=== PATIENT | male | born 1960 | race Caucasian/White ===

== ENCOUNTER → 2017-07-28 05:54 | Outpatient (CLI) | payer OTHER, SELFPAY ==
[2017-07-28 07:29] LABS: ALB/GLOB Ratio 1.1 RATIO (0.9-2.4); AST(SGOT) 20 U/L (15-37); Alanine Aminotransfer ALT/SGPT 39 U/L (16-61); Albumin, Serum 3.7 g/dL (3.2-5.0); Alkaline Phosphatase 73 U/L (45-117); Anion Gap 6 (5-15); BUN 18 mg/dL (7-18); BUN/Creat Ratio 16.1 RATIO (10-20); Calcium,Total 8.9 mg/dL (8.5-10.1); Chloride 104 mmol/L (98-107); Cholesterol 218 mg/dL (200); Creatinine, Serum 1.12 mg/dL (0.70-1.30); EST Glomerular Filtration Rate 71 mL/min (>60); Est Glom Filt Rate - Afr Amer 86 mL/min (>60); Globulin 3.5 g/dL (2.2-4.2); Glucose 145 mg/dL (74-106); High Density Lipoprotein 38 mg/dL; PSA,Total - Annual Screen 0.54 ng/mL (0.00-4.00); Potassium 3.8 mmol/L (3.5-5.1); Protein, Total 7.2 g/dL (6.4-8.2); Sodium Level 140 mmol/L (136-145); T4 Free Direct 0.83 ng/dL (0.76-1.46); Thyroid Stim Hormone (TSH) 8.53 uIU/mL (0.358-3.74); Triglycerides 183 mg/dL; Uric Acid 5.4 mg/dL (3.5-7.2); Very Low Density Lipoprotein 37 mg/dL (5-40)
== END ==
PROVIDERS: Family Provider Family Medicine; PCP Family Medicine; Visit Provider Family Medicine
DX: I10 Essential (primary) hypertension (principal); N40.0 Benign prostatic hyperplasia without lower urinary tract symptoms; E03.9 Hypothyroidism, unspecified; M10.9 Gout, unspecified
CPT/HCPCS: 36415; 80053; 80061; 84153; 84439; 84443; 84550; G0103

== ENCOUNTER 2017-12-23 19:53 | Emergency (ER) | payer OTHER, SELFPAY ==
[2017-12-23 19:54] VITALS: BP 153/100; PULSE 75; RESP 16; TEMP 37.4; O2SAT 95; BMI 34.2
--- NOTE | 2017-12-23 20:18 | ED.DCSUM_ITS ---
- ER Visit Summary Date of Service: 12/23/17 Chief Complaint: Right upper dental pain History of Present Illness: The patient is a 57 M history of a bad tooth for a long period of time. He states the last several days the tooth has been increasing more painful. Denies any fever. No facial swelling. Physical Examination: Vital signs are stable afebrile. He does not look septic or toxic. H EENT exam no facial swelling. No trismus. Right upper molar is severely decayed. Tender to palpation. With mild gingival swelling. There is no trismus. He has other areas of dentition and have cavities. There is no obvious abscess. Neck nontender no lymphadenopathy. Lungs clear to auscultation bilaterally. Heart regular rate and rhythm no murmur. Otherwise exam unremarkable. Test Results: None Emergency Department Course and Treatment: [place] home pack. Treatment Plan: Penicillin. Motrin and Tylenol for pain. Follow-up with a dentist as soon as possible. Disposition: Discharge Impression: Acute dental pain secondary to dental cavities and decay This note was generated with [employer] dictation software. It may contain incorrect words, spelling, and punctuation that were not noted in review of the chart prior to signing ED Disposition - Plan for ED Patient: Chief Complaint: Dental Referrals: Navjot Mason MD [Primary Care Provider] -
--- NOTE | 2017-12-23 20:18 | ED.DEP ---
ED Disposition - Plan for ED Patient: Disposition: Home or Assisted Living Chief Complaint: Dental Instructions: ED Cavity Dental, ED Abscess Dental Prescriptions: Hydrocodone/Acetaminophen [[place] 10-325 Tablet] 1 ea PO Q4H PRN PRN #10 tab PRN Reason: Pain Penicillin Vk [Pen-Vee K , V-Cillin K] 500 mg PO 4X/DAY #40 tab Referrals: Mich Vo DDS [STAFF PHYSICIAN] - As soon as possible Additional Instructions: Motrin and Tylenol for pain. [place] home pack use sparingly. Call follow-up with a dentist of your choice. The Dr. Vo who is a very good oral surgeon here in [place].
--- NOTE | 2017-12-23 20:38 | ED.RN ---
Asked Dr. Pearce to change order from home pack to written rx for [facility] as [facility] is still open. Pt given rx for [place] and Penicillin and instructed to go there immediately for medications.
== END 2017-12-23 20:40 | disposition home or self-care (01) ==
LOC: ED 20:22
PROVIDERS: Emergency Provider Emergency Medicine; Family Provider Family Medicine; PCP Family Medicine
DX: K08.89 Other specified disorders of teeth and supporting structures (principal); K02.9 Dental caries, unspecified; K05.10 Chronic gingivitis, plaque induced; I10 Essential (primary) hypertension; Z79.899 Other long term (current) drug therapy
CPT/HCPCS: 99282

== ENCOUNTER 2018-08-01 16:55 | Emergency (ER) | payer OTHER, SELFPAY ==
[2018-08-01 16:57] VITALS: BP 147/106; PULSE 69; RESP 16; TEMP 36.6; O2SAT 97; BMI 34.8
--- NOTE | 2018-08-01 17:27 | CT_ITS ---
STUDY: CT BRAIN WITHOUT CONTRAST REASON FOR EXAM: Male, 57 years old. Syncopal episode today. History of diabetes and hypertension. RADIATION DOSAGE (If Supplied By Facility): CTDIvol = ( 44.99 ) mGy, DLP = ( 829.85 ) mGycm TECHNIQUE: Transaxial CT imaging of the brain was performed without administration of intravenous contrast material. Individualized dose optimization techniques were used for this CT. COMPARISON: None. FINDINGS: Normal soft tissue structures. Normal calvarium. Normal size ventricles and extra-axial spaces for the patient's age. Normal white matter tracts of the cerebral hemispheres. Normal basal ganglia and thalami. Normal brainstem. Normal cerebellum. There is no intracranial hemorrhage. There are no findings of an acute ischemic infarction. Normal visualized paranasal sinuses. CT/Brain/Head without Contrast IMPRESSION: Normal unenhanced CT scan of the brain. Electronically Signed: Devin Chambers MD at 17:56 EST , Service support ,
--- NOTE | 2018-08-01 17:27 | EKG12_ITS ---
Test Reason : SYNCOPE Blood Pressure : / mmHG Vent. Rate : 074 BPM Atrial Rate : 074 BPM P-R Int : 138 ms QRS Dur : 084 ms QT Int : 392 ms P-R-T Axes : 034 047 055 degrees QTc Int : 435 ms Normal sinus rhythm Normal ECG Confirmed by FRAN JUAREZ MD ([id number]), editor in chief newspaper VIRGIE MAYES ([id number]) on 08/06/2018 5:06:58 PM Referred By: Confirmed By:FRAN JUAREZ MD
[2018-08-01 17:42] LABS: Absolute Lymphocyte Count 2.65 X10^3/ul (0.83-4.51); Absolute Neutrophil Count 5.6 X10^3/uL (2.0-7.7); Basophil# 0.02 X10^3/uL; Basophil% 0.2 % (0-1); Eosinophil# 0.16 X10^3/uL; Eosinophils% 1.7 % (0-5); Hematocrit 44.6 % (40-54); Hemoglobin 14.5 g/dl (13.0-16.5); Lymphocyte # 2.65 X10^3/ul (4.0); Lymphocyte % 28.2 % (19-41); Mean Corp Hgb Conc 32.5 g/gl (32-36); Mean Corpuscular Hgb 27.7 pg (27.0-32.0); Mean Corpuscular Volume 85.3 fL (80-94); Mean Platelet Vol. 10.4 fl (6.2-12.0); Monocyte# 0.93 X10^3/uL; Monocyte% 9.9 % (0-10); Neutrophil # 5.59 X10^3/uL (2.7-7.7); Neutrophil % 59.5 % (47-70); Platelet Count 237 K/mm3 (150-450); RBC Distribution Width CV 14.3 % (11.6-14.6); RBC Distribution Width SD 44.2 fl (35.1-43.9); Red Blood Count 5.23 M/mm3 (4.6-6.2); White Blood Count 9.4 K/mm3 (4.4-11.0)
[2018-08-01 17:48] LABS: POSITIVE COUNT NO; POSITIVE DIFFERENTIAL NO; POSITIVE MORPHOLOGY NO
[2018-08-01 17:49] VITALS: BP 146/89; BP 149/93; BP 156/97; PULSE 72; PULSE 74; PULSE 80
[2018-08-01 18:02] LABS: Anion Gap 9 (5-15); BUN 14 mg/dL (7-18); BUN/Creat Ratio 11.7 RATIO (10-20); Calcium,Total 9.1 mg/dL (8.5-10.1); Chloride 103 mmol/L (98-107); EST Glomerular Filtration Rate 66 mL/min (>60); Est Glom Filt Rate - Afr Amer 80 mL/min (>60); Estimated Creatinine Clearance 70.59 ml/min; Glucose 103 mg/dL (74-106); Potassium 3.9 mmol/L (3.5-5.1); Sodium Level 140 mmol/L (136-145)
--- NOTE | 2018-08-01 19:39 | ED.VISSUMM ---
- ER Visit Summary Date of Service: 08/01/18 Chief Complaint: Syncope History of Present Illness: The patient is a 57 M who presents with a syncopal episode that occurred today. Patient states he got up after going to the bathroom and was walking in his kitchen when he passed out. Patient states he stood up for a while after going to the bathroom without any dizziness. Patient denies any chest pain or palpitations. Patient denies any nausea or vomiting. Patient denies any shortness of breath. Patient states he did feel somewhat lightheaded prior to passing out. Patient tried to sit down before he passed out. Physical Examination: Vital signs are stable. Patient is afebrile. Patient is in no acute distress. Oral mucosa is pink and moist. Neck is supple. Trachea is midline. There is no JVD noted. Heart was regular rate and rhythm. Lungs are clear and equal bilateral. Abdomen is soft. Bowel sounds are normal. There is no tenderness. There is no guarding noted. Skin is warm dry. Cranial nerves II through XII are intact. There are no focal motor or sensory deficits noted. The remaining physical exam is within normal limits. Test Results: EKG showed normal sinus rhythm with a rate of 74. There are no acute ST or T wave changes. CT scan of the brain was obtained and was normal. CBC, basic metabolic profile, troponin were obtained and were normal. Orthostatic vital signs were negative. Emergency Department Course and Treatment: Patient felt better on reevaluation. Patient was instructed to get plenty of rest. Patient was instructed to follow-up with his primary care physician in 7-10 days. Patient understood and was agreeable with the plan. All questions were answered. Disposition: Discharge home Impression: Syncope This note was generated with [employer] dictation software. It may contain incorrect words, spelling, and punctuation that were not noted in review of the chart prior to signing ED Disposition - Plan for ED Patient: Disposition: Home or Assisted Living Diagnosis: Syncope and collapse Instructions: ED Fainting Unkn Cause Referrals: Navjot Mason MD [Primary Care Provider] -
--- NOTE | 2018-08-01 19:43 | ED.DCSUM_ITS ---
- ER Visit Summary Date of Service: 08/01/18 Chief Complaint: Syncope History of Present Illness: The patient is a 57 M who presents with a syncopal episode that occurred today. Patient states he got up after going to the bathroom and was walking in his kitchen when he passed out. Patient states he stood up for a while after going to the bathroom without any dizziness. Patient denies any chest pain or palpitations. Patient denies any nausea or vomiting. Patient denies any shortness of breath. Patient states he did feel somewhat lightheaded prior to passing out. Patient tried to sit down before he passed out. Physical Examination: Vital signs are stable. Patient is afebrile. Patient is in no acute distress. Oral mucosa is pink and moist. Neck is supple. Trachea is midline. There is no JVD noted. Heart was regular rate and rhythm. Lungs are clear and equal bilateral. Abdomen is soft. Bowel sounds are normal. There is no tenderness. There is no guarding noted. Skin is warm dry. Cranial nerves II through XII are intact. There are no focal motor or sensory deficits noted. The remaining physical exam is within normal limits. Test Results: EKG showed normal sinus rhythm with a rate of 74. There are no acute ST or T wave changes. CT scan of the brain was obtained and was normal. CBC, basic metabolic profile, troponin were obtained and were normal. Orthostatic vital signs were negative. Emergency Department Course and Treatment: Patient felt better on reevaluation. Patient was instructed to get plenty of rest. Patient was instructed to follow- up with his primary care physician in 7-10 days. Patient understood and was agreeable with the plan. All questions were answered. Disposition: Discharge home Impression: Syncope This note was generated with [employer] dictation software. It may contain incorrect words, spelling, and punctuation that were not noted in review of the chart prior to signing ED Disposition - Plan for ED Patient: Disposition: Home or Assisted Living Diagnosis: Syncope and collapse Instructions: ED Fainting Unkn Cause Referrals: Navjot Mason MD [Primary Care Provider] -
[2018-08-01 19:54] VITALS: BP 137/95; PULSE 72; RESP 16; O2SAT 96
== END 2018-08-01 19:54 | disposition home or self-care (01) ==
PROVIDERS: Emergency Provider Emergency Medicine; Family Provider Family Medicine; PCP Family Medicine
DX: R55 Syncope and collapse (principal); E11.9 Type 2 diabetes mellitus without complications; I10 Essential (primary) hypertension; E78.00 Pure hypercholesterolemia, unspecified; E03.9 Hypothyroidism, unspecified; Z79.84 Long term (current) use of oral hypoglycemic drugs; Z79.899 Other long term (current) drug therapy
CPT/HCPCS: 70450; 80048; 84484; 85025; 93005; 99285; A4216

== ENCOUNTER → 2019-03-05 08:17 | Outpatient (CLI) | payer OTHER, SELFPAY ==
[2019-03-05 10:33] LABS: ALB/GLOB Ratio 1.1 RATIO (0.9-2.4); AST(SGOT) 19 U/L (15-37); Alanine Aminotransfer ALT/SGPT 40 U/L (16-61); Albumin, Serum 3.7 g/dL (3.2-5.0); Alkaline Phosphatase 78 U/L (45-117); Anion Gap 8 (5-15); BUN 23 mg/dL (7-18); BUN/Creat Ratio 18.9 RATIO (10-20); Calcium,Total 9.1 mg/dL (8.5-10.1); Chloride 106 mmol/L (98-107); Cholesterol 274 mg/dL (200); Creatinine, Serum 1.22 mg/dL (0.70-1.30); EST Glomerular Filtration Rate 64 mL/min (>60); Est Glom Filt Rate - Afr Amer 78 mL/min (>60); Free T3 2.4 pg/mL (2.18-3.98); Globulin 3.5 g/dL (2.2-4.2); Glucose 250 mg/dL (74-106); High Density Lipoprotein 33 mg/dL; Potassium 4.4 mmol/L (3.5-5.1); Protein, Total 7.2 g/dL (6.4-8.2); Sodium Level 142 mmol/L (136-145); Thyroid Stim Hormone (TSH) 2.22 uIU/mL (0.358-3.74); Triglycerides 248 mg/dL; Very Low Density Lipoprotein 50 mg/dL (5-40)
== END ==
PROVIDERS: Family Provider Family Medicine; PCP Family Medicine; Referring Provider Family Medicine; Visit Provider Family Medicine
DX: E11.9 Type 2 diabetes mellitus without complications (principal); E03.9 Hypothyroidism, unspecified; N40.0 Benign prostatic hyperplasia without lower urinary tract symptoms
CPT/HCPCS: 36415; 80053; 80061; 84153; 84439; 84443; 84481

== ENCOUNTER → 2019-09-23 10:50 | Outpatient (CLI) | payer OTHER, SELFPAY ==
[2019-09-23 12:43] LABS: ALB/GLOB Ratio 1.1 RATIO (0.9-2.4); AST(SGOT) 26 U/L (15-37); Alanine Aminotransfer ALT/SGPT 48 U/L (16-61); Albumin, Serum 3.8 g/dL (3.2-5.0); Alkaline Phosphatase 69 U/L (45-117); Anion Gap 5 (5-15); BUN 15 mg/dL (7-18); BUN/Creat Ratio 12.7 RATIO (10-20); Calcium,Total 8.9 mg/dL (8.5-10.1); Chloride 103 mmol/L (98-107); Cholesterol 189 mg/dL (200); Creatinine, Serum 1.18 mg/dL (0.70-1.30); EST Glomerular Filtration Rate 67 mL/min (>60); Est Glom Filt Rate - Afr Amer 81 mL/min (>60); Globulin 3.4 g/dL (2.2-4.2); Glucose 154 mg/dL (74-106); High Density Lipoprotein 36 mg/dL; Potassium 3.9 mmol/L (3.5-5.1); Protein, Total 7.2 g/dL (6.4-8.2); Sodium Level 138 mmol/L (136-145); Thyroid Stim Hormone (TSH) 3.98 uIU/mL (0.358-3.74); Triglycerides 146 mg/dL; Very Low Density Lipoprotein 29 mg/dL (5-40)
== END ==
PROVIDERS: PCP Family Medicine; Referring Provider Family Medicine; Visit Provider Family Medicine
DX: E11.9 Type 2 diabetes mellitus without complications (principal)
CPT/HCPCS: 36415; 80053; 80061; 84443

== ENCOUNTER → 2020-01-14 10:29 | Outpatient (CLI) | payer OTHER, SELFPAY ==
[2020-01-14 13:07] LABS: Cholesterol 226 mg/dL (200); High Density Lipoprotein 33 mg/dL; T4 Free Direct 1.02 ng/dL (0.76-1.46); Thyroid Stim Hormone (TSH) 2.66 uIU/mL (0.358-3.74); Triglycerides 309 mg/dL; Very Low Density Lipoprotein 62 mg/dL (5-40)
== END ==
PROVIDERS: PCP Family Medicine; Referring Provider Family Medicine; Visit Provider Family Medicine
DX: E78.00 Pure hypercholesterolemia, unspecified (principal); E03.9 Hypothyroidism, unspecified
CPT/HCPCS: 36415; 80061; 84439; 84443

== ENCOUNTER → 2020-03-23 15:39 | Outpatient (CLI) | payer OTHER, SELFPAY | PROVIDERS: PCP Family Medicine; Visit Provider Family Medicine | DX: J45.909 Unspecified asthma, uncomplicated (principal) | CPT/HCPCS: 87635; U0003 ==

== ENCOUNTER → 2020-04-20 09:43 | Outpatient (CLI) | payer OTHER, SELFPAY ==
[2020-04-20 12:41] LABS: Vitamin B12 328 pg/mL (211-911)
[2020-04-20 13:18] LABS: AST(SGOT) 15 U/L (15-37); Alanine Aminotransfer ALT/SGPT 38 U/L (16-61); Albumin, Serum 3.6 g/dL (3.2-5.0); Alkaline Phosphatase 72 U/L (45-117); Anion Gap 7 (5-15); BUN 16 mg/dL (7-18); Calcium,Total 9.2 mg/dL (8.5-10.1); Chloride 107 mmol/L (98-107); Cholesterol 208 mg/dL (200); Creatinine, Serum 1.23 mg/dL (0.70-1.30); EST Glomerular Filtration Rate 64 mL/min (>60); Est Glom Filt Rate - Afr Amer 77 mL/min (>60); Globulin 3.6 g/dL (2.2-4.2); Glucose 153 mg/dL (74-106); High Density Lipoprotein 38 mg/dL; PSA,Total - Annual Screen 0.74 ng/mL (0.00-4.00); Protein, Total 7.2 g/dL (6.4-8.2); Sodium Level 140 mmol/L (136-145); Triglycerides 205 mg/dL; Uric Acid 3.7 mg/dL (3.5-7.2); Very Low Density Lipoprotein 41 mg/dL (5-40)
== END ==
PROVIDERS: PCP Family Medicine; Referring Provider Family Medicine; Visit Provider Family Medicine
DX: M10.9 Gout, unspecified (principal); N40.0 Benign prostatic hyperplasia without lower urinary tract symptoms; E11.9 Type 2 diabetes mellitus without complications
CPT/HCPCS: 36415; 80053; 80061; 82607; 84153; 84403; 84550; G0103

== ENCOUNTER → 2020-07-21 10:28 | Outpatient (CLI) | payer OTHER, SELFPAY ==
[2020-07-21 12:51] LABS: Erythrocyte Sedimentation Rate 1 mm/hr (0-20)
[2020-07-21 13:10] LABS: Hematocrit 49.1 % (40-54); Hemoglobin 15.9 g/dL (13.0-16.5); Mean Corp Hgb Conc 32.4 g/dL (32-36); Mean Corpuscular Hgb 27.5 pg (27.0-32.0); Mean Corpuscular Volume 84.9 fL (80-94); Mean Platelet Vol. 9.8 fl (6.2-12.0); Platelet Count 228 K/mm3 (150-450); RBC Distribution Width CV 14.3 % (11.6-14.6); RBC Distribution Width SD 44.1 fl (35.1-43.9); Red Blood Count 5.78 M/mm3 (4.6-6.2); White Blood Count 8.1 K/mm3 (4.4-11.0)
[2020-07-21 13:35] LABS: ALB/GLOB Ratio 1.1 RATIO (0.9-2.4); AST(SGOT) 24 U/L (15-37); Alanine Aminotransfer ALT/SGPT 43 U/L (16-61); Alkaline Phosphatase 70 U/L (45-117); Anion Gap 4 (5-15); BUN 18 mg/dL (7-18); BUN/Creat Ratio 14.9 RATIO (10-20); Calcium,Total 9.7 mg/dL (8.5-10.1); Chloride 105 mmol/L (98-107); Creatinine, Serum 1.21 mg/dL (0.70-1.30); EST Glomerular Filtration Rate 65 mL/min (>60); Est Glom Filt Rate - Afr Amer 78 mL/min (>60); Globulin 3.5 g/dL (2.2-4.2); Glucose 136 mg/dL (74-106); Potassium 3.5 mmol/L (3.5-5.1); Prealbumin 33.5 mg/dL (20.0-40.0); Protein, Total 7.5 g/dL (6.4-8.2); Sodium Level 139 mmol/L (136-145)
[2020-07-23 10:51] LABS: Cholesterol 129 mg/dL (200); High Density Lipoprotein 33 mg/dL; Thyroid Stim Hormone (TSH) 0.61 uIU/mL (0.358-3.74); Triglycerides 164 mg/dL; Very Low Density Lipoprotein 33 mg/dL (5-40)
== END ==
PROVIDERS: PCP Family Medicine; Referring Provider Family Medicine; Visit Provider Family Medicine
DX: R63.4 Abnormal weight loss (principal); E78.00 Pure hypercholesterolemia, unspecified; E11.9 Type 2 diabetes mellitus without complications; E03.9 Hypothyroidism, unspecified
CPT/HCPCS: 36415; 80053; 80061; 84134; 84443; 85027; 85652

== ENCOUNTER → 2020-10-19 11:45 | Outpatient (CLI) | payer OTHER, SELFPAY ==
[2020-10-19 15:23] LABS: Cholesterol 134 mg/dL (200); High Density Lipoprotein 37 mg/dL; Thyroid Stim Hormone (TSH) 1.04 uIU/mL (0.358-3.74); Triglycerides 188 mg/dL; Very Low Density Lipoprotein 38 mg/dL (5-40)
== END ==
PROVIDERS: PCP Family Medicine; Referring Provider Family Medicine; Visit Provider Family Medicine
DX: E03.9 Hypothyroidism, unspecified (principal); E78.00 Pure hypercholesterolemia, unspecified
CPT/HCPCS: 36415; 80061; 84443

== ENCOUNTER → 2021-02-01 09:04 | Outpatient (CLI) | payer OTHER, SELFPAY ==
[2021-02-01 10:56] LABS: Cholesterol 139 mg/dL (200); High Density Lipoprotein 32 mg/dL; Thyroid Stim Hormone (TSH) 2.97 uIU/mL (0.358-3.74); Triglycerides 181 mg/dL; Uric Acid 2.9 mg/dL (3.5-7.2); Very Low Density Lipoprotein 36 mg/dL (5-40)
== END ==
PROVIDERS: PCP Family Medicine; Referring Provider Family Medicine; Visit Provider Family Medicine
DX: M10.9 Gout, unspecified (principal); E03.9 Hypothyroidism, unspecified; E78.00 Pure hypercholesterolemia, unspecified; E11.9 Type 2 diabetes mellitus without complications
CPT/HCPCS: 36415; 80061; 84443; 84550

== ENCOUNTER → 2021-04-26 08:49 | Outpatient (CLI) | payer BC, SELFPAY ==
[2021-04-26 10:27] LABS: AST(SGOT) 21 U/L (15-37); Alanine Aminotransfer ALT/SGPT 43 U/L (16-61); Albumin, Serum 3.7 g/dL (3.2-5.0); Alkaline Phosphatase 92 U/L (45-117); Anion Gap 5 (5-15); BUN 22 mg/dL (7-18); BUN/Creat Ratio 16.8 RATIO (10-20); Calcium,Total 9.1 mg/dL (8.5-10.1); Chloride 106 mmol/L (98-107); Creatinine, Serum 1.31 mg/dL (0.70-1.30); EST Glomerular Filtration Rate 59 mL/min (>60); Est Glom Filt Rate - Afr Amer 71 mL/min (>60); Globulin 3.8 g/dL (2.2-4.2); Glucose 163 mg/dL (74-106); Protein, Total 7.5 g/dL (6.4-8.2); Sodium Level 139 mmol/L (136-145)
== END ==
PROVIDERS: PCP Family Medicine; Referring Provider Family Medicine; Visit Provider Family Medicine
DX: N52.9 Male erectile dysfunction, unspecified (principal); E11.9 Type 2 diabetes mellitus without complications
CPT/HCPCS: 36415; 80053; 84153; 84443; G0103

== ENCOUNTER 2021-08-13 10:22 | Outpatient (CLI) | payer BC, SELFPAY ==
[2021-08-13 11:01] LABS: Anion Gap 5 (5-15); BUN 20 mg/dL (7-18); BUN/Creat Ratio 18.3 RATIO (10-20); Calcium,Total 9.4 mg/dL (8.5-10.1); Chloride 105 mmol/L (98-107); Cholesterol 163 mg/dL (200); Creatinine, Serum 1.09 mg/dL (0.70-1.30); EST Glomerular Filtration Rate 73 mL/min (>60); Est Glom Filt Rate - Afr Amer 88 mL/min (>60); Glucose 152 mg/dL (74-106); High Density Lipoprotein 30 mg/dL; Potassium 4.3 mmol/L (3.5-5.1); Sodium Level 138 mmol/L (136-145); Triglycerides 224 mg/dL; Very Low Density Lipoprotein 45 mg/dL (5-40)
== END 2021-08-13 23:59 | disposition home or self-care (01) ==
LOC: MFPLAB 10:23
PROVIDERS: PCP Family Medicine; Visit Provider Family Medicine
DX: E11.9 Type 2 diabetes mellitus without complications (principal)
CPT/HCPCS: 36415; 80048; 80061

== ENCOUNTER → 2022-01-17 | Outpatient (CLI) | payer OTHER, SELFPAY ==
[2022-01-17 10:49] LABS: Anion Gap 5 (5-15); BUN 24 mg/dL (7-18); BUN/Creat Ratio 22.9 RATIO (10-20); Calcium,Total 9.8 mg/dL (8.5-10.1); Chloride 106 mmol/L (98-107); Cholesterol 170 mg/dL (200); Creatinine, Serum 1.05 mg/dL (0.70-1.30); EST Glomerular Filtration Rate 76 mL/min (>60); Est Glom Filt Rate - Afr Amer 92 mL/min (>60); Glucose 166 mg/dL (74-106); High Density Lipoprotein 31 mg/dL; Potassium 3.9 mmol/L (3.5-5.1); Sodium Level 139 mmol/L (136-145); Thyroid Stim Hormone (TSH) 0.79 uIU/mL (0.358-3.74); Triglycerides 296 mg/dL; Very Low Density Lipoprotein 59 mg/dL (5-40)
== END | disposition home or self-care (01) ==
LOC: MFPLAB 08:52
PROVIDERS: PCP Family Medicine; Visit Provider Family Medicine
DX: E78.00 Pure hypercholesterolemia, unspecified (principal)
CPT/HCPCS: 36415; 80048; 80061; 84443

== ENCOUNTER 2022-05-09 09:35 | Outpatient (CLI) | payer OTHER, SELFPAY ==
[2022-05-09 10:40] LABS: Bacteria 0 SEEN /hpf (None Seen); Mucous, Urine 0 SEEN /hpf (<or=2+); Red Blood Cells-Urine 0 SEEN /hpf (0-5); Squamous Epithelial Cells - UA 0 SEEN /hpf (0-5)
[2022-05-09 12:09] LABS: Color, Urine Yellow (Yellow); Glucose, Dipstick 1000 mg/dl (Normal); Ketone-Dipstick Negative (Negative); Leukocyte Esterase-Dipstick Negative /ul (Negative); Nitrite-Dipstick Negative (Negative); Occult Blood-Urine Negative /ul (Negative); Protein-Dipstick Negative (Negative); Specific Gravity, Urine 1.015 (1.002-1.030); Urine Bilirubin Dipstick Negative (Negative); Urine Clarity Clear (Clear); Urine Urobilinogen Normal (Normal); Urine pH 6.5 (5.0 - 8.0)
[2022-05-09 12:16] LABS: White Blood Cells 0-5 SEEN /hpf (0-5)
[2022-05-09 12:36] LABS: Microalbumin,Random Urine 24.4 mg/L (NO RANGE EST.)
[2022-05-09 12:59] LABS: Anion Gap 9 (5-15); BUN 16 mg/dL (7-18); BUN/Creat Ratio 15.1 RATIO (10-20); Calcium,Total 9.3 mg/dL (8.5-10.1); Chloride 101 mmol/L (98-107); Creatinine, Serum 1.06 mg/dL (0.70-1.30); EST Glomerular Filtration Rate 75 mL/min (>60); Est Glom Filt Rate - Afr Amer 91 mL/min (>60); Glucose 163 mg/dL (74-106); Potassium 4.1 mmol/L (3.5-5.1); Sodium Level 139 mmol/L (136-145); Uric Acid 2.7 mg/dL (3.5-7.2)
[2022-05-09 13:02] LABS: Cholesterol 186 mg/dL (200); High Density Lipoprotein 45 mg/dL; Triglycerides 296 mg/dL; Very Low Density Lipoprotein 59 mg/dL (5-40)
[2022-05-09 13:39] LABS: PSA,Total - Annual Screen 1.08 ng/mL (0.00-4.00)
== END 2022-05-09 23:59 | disposition home or self-care (01) ==
LOC: MFPLAB 09:37
PROVIDERS: PCP Family Medicine; Visit Provider Family Medicine
DX: Z00.00 Encounter for general adult medical examination without abnormal findings (principal); E11.9 Type 2 diabetes mellitus without complications; M10.9 Gout, unspecified
CPT/HCPCS: 36415; 80048; 80061; 81001; 82043; 84153; 84550; G0103

== ENCOUNTER → 2022-08-15 | Outpatient (CLI) | payer OTHER, SELFPAY ==
[2022-08-15 15:05] LABS: Hematocrit 50.4 % (40-54); Hemoglobin 16.4 g/dL (13.0-16.5); Mean Corp Hgb Conc 32.5 g/dL (32-36); Mean Corpuscular Hgb 27.7 pg (27.0-32.0); Mean Corpuscular Volume 85.3 fL (80-94); Platelet Count 208 K/mm3 (150-450); RBC Distribution Width CV 13.7 % (11.6-14.6); RBC Distribution Width SD 42.5 fl (35.1-43.9); Red Blood Count 5.91 M/mm3 (4.6-6.2); White Blood Count 6.6 K/mm3 (4.4-11.0)
[2022-08-15 15:20] LABS: ALB/GLOB Ratio 1.2 RATIO (0.9-2.4); AST(SGOT) 22 U/L (15-37); Alanine Aminotransfer ALT/SGPT 38 U/L (16-61); Albumin, Serum 4.1 g/dL (3.2-5.0); Alkaline Phosphatase 69 U/L (45-117); Anion Gap 7 (5-15); BUN 18 mg/dL (7-18); BUN/Creat Ratio 15.7 RATIO (10-20); Calcium,Total 9.5 mg/dL (8.5-10.1); Chloride 105 mmol/L (98-107); Creatinine, Serum 1.15 mg/dL (0.70-1.30); EST Glomerular Filtration Rate 68 mL/min (>60); Est Glom Filt Rate - Afr Amer 82 mL/min (>60); Globulin 3.5 g/dL (2.2-4.2); Glucose 132 mg/dL (74-106); Potassium 4.1 mmol/L (3.5-5.1); Protein, Total 7.6 g/dL (6.4-8.2); Sodium Level 141 mmol/L (136-145)
[2022-08-15 15:34] LABS: Vitamin B12 326 pg/mL (211-911)
== END | disposition home or self-care (01) ==
LOC: MFPLAB 12:18
PROVIDERS: PCP Family Medicine; Visit Provider Family Medicine
DX: R53.83 Other fatigue (principal)
CPT/HCPCS: 36415; 80053; 82306; 82607; 84403; 85027

== ENCOUNTER → 2022-09-05 | Outpatient (REF) | payer OTHER, SELFPAY ==
--- NOTE | 2022-09-05 17:43 | STRESSREP ---
Stress Test Report Exercise stress test. 61-year-old man with a history of fatigue Stress protocol: Resting EKG demonstrates normal sinus rhythm with a rate of 82 bpm resting blood pressure is 122/80 mmHg. The patient exercised according to the regular Matias protocol for a total duration of 5 minutes completing 2 minutes into stage II of the Matias protocol attaining a maximum heart rate of 134 bpm which was 85% of maximum predicted heart rate; the maximum workload was 7 metabolic equivalents. At rest there were no ST or T wave changes noted to suggest ischemia and at peak exercise upsloping ST changes only were noted which did not meet the criteria for ischemia. No clinical angina was noted the test was terminated due to the target heart rate being achieved/fatigue, and shortness of breath. The peak blood pressure was 160/72 mmHg. Rate-pressure product was 21,400. Conclusion: Exercise stress test with no EKG criteria for ischemia at a moderate workload Mild to moderate shortness of breath noted
== END ==
LOC: CVS 12:20
PROVIDERS: PCP Family Medicine; Visit Provider Family Medicine
DX: R53.83 Other fatigue (principal)
CPT/HCPCS: 93017

== ENCOUNTER → 2022-10-10 | Outpatient (CLI) | payer OTHER, SELFPAY | END | disposition home or self-care (01) | LOC: SL 09:17 | PROVIDERS: PCP Family Medicine; Referring Provider Internal Medicine; Visit Provider Internal Medicine | DX: R06.83 Snoring (principal) | CPT/HCPCS: 95806 ==

== ENCOUNTER → 2022-12-14 | Outpatient (CLI) | payer OTHER, SELFPAY ==
[2022-12-14 13:38] LABS: Vitamin B12 587 pg/mL (211-911); Vitamin D,25 Hydroxy 54.4 ng/mL
== END | disposition home or self-care (01) ==
LOC: MFPLAB 10:54
PROVIDERS: PCP Family Medicine; Visit Provider Family Medicine
DX: E53.8 Deficiency of other specified B group vitamins (principal); R79.89 Other specified abnormal findings of blood chemistry
CPT/HCPCS: 36415; 82306; 82607

== ENCOUNTER → 2023-01-19 | Outpatient (CLI) | payer OTHER, SELFPAY | END | disposition home or self-care (01) | LOC: SL 20:18 | PROVIDERS: PCP Family Medicine; Referring Provider Internal Medicine; Visit Provider Internal Medicine | DX: G47.31 Primary central sleep apnea (principal); I10 Essential (primary) hypertension; R06.83 Snoring | CPT/HCPCS: 95810 ==

== ENCOUNTER → 2023-03-06 | Outpatient (CLI) | payer OTHER, SELFPAY ==
--- NOTE | 2023-03-06 09:53 | ECHOD_ITS ---
Version 2 Reason For Study: DYSPNEA Procedure This was a 2D Doppler, Color Flow transthoracic echocardiogram. Exam performed in department. Left Ventricle Normal LV size. Left ventricular systolic function is normal. The estimated ejection fraction is 60 %. Normal diastology for age. Right Ventricle Normal RV size. Normal systolic function. Atria The left atrium is moderately enlarged. Normal right atrium. Mitral Valve The mitral valve is structurally normal. No prolapse or stenosis seen. Trivial mitral valve insufficiency. Tricuspid Valve Normal tricuspid valve. Trivial tricuspid valve insufficiency. Aortic Valve Trisinus/trileaflet aortic valve. Pulmonic Valve Normal pulmonic valve. Trivial pulmonic valve insufficiency. Great Vessels Normal aortic root. Pericardium/Pleural No pericardial effusion. MMode/2D Measurements & Calculations LVIDd: 4.6 cm IVSd: 1.1 cm Ao root diam: 3.3 cm LVIDs: 3.3 cm LVPWd: 1.1 cm RVDd: 2.7 cm FS: 29.2 % LAV(MOD-bp): 47.0 ml LVAd ap4: 28.2 cm2 LVAd ap2: 28.0 cm2 LAV(MOD-bp) Indexed: 20.1 ml/m2 LVLd ap4: 8.5 cm LVLd ap2: 8.4 cm LAV(MOD-sp2): 46.4 ml EDV(MOD-sp4): 77.6 ml EDV(MOD-sp2): 80.4 ml LAV(MOD-sp4): 46.3 ml EDV(sp4-el): 79.0 ml EDV(sp2-el): 78.6 ml LVAs ap4: 15.2 cm2 LVAs ap2: 14.7 cm2 LVLs ap4: 7.0 cm LVLs ap2: 6.7 cm ESV(MOD-sp4): 28.0 ml ESV(MOD-sp2): 29.3 ml ESV(sp4-el): 27.9 ml ESV(sp2-el): 27.5 ml EF(MOD-sp4): 63.9 % EF(MOD-sp2): 63.5 % EF(sp4-el): 64.7 % SV(MOD-sp4): 49.6 ml SV(MOD-sp2): 51.1 ml SV(sp4-el): 51.1 ml LA dimension(2D): 4.7 cm LA A4 area: 18.0 cm2 RA A4 area: 14.1 cm2 Time Measurements MV dec time: 0.18 sec Doppler Measurements & Calculations MV E max alex: 90.9 cm/sec Lat Peak E' Alex: 10.2 cm/sec Med Peak E' Alex: 9.4 cm/sec MV A max alex: 73.1 cm/sec E/E' lat: 8.9 E/E' med: 9.7 MV E/A: 1.2 MV V2 max: 91.8 cm/sec MV P1/2t max alex: 92.8 cm/sec Ao V2 max: 119.7 cm/sec MV max P.4 mmHg MV P1/2t: 55.6 msec Ao max P.7 mmHg MV V2 mean: 61.6 cm/sec MV dec slope: 489.3 cm/sec2 Ao V2 mean: 87.2 cm/sec MV mean P.6 mmHg Ao mean P.3 mmHg MV V2 VTI: 22.3 cm MVA(P1/2t): 4.0 cm2 Ao V2 VTI: 24.1 cm AV (velocity ratio): 0.96 LV V1 max: 108.4 cm/sec PA V2 max: 122.9 cm/sec TR max alex: 236.6 cm/sec LV V1 max P.7 mmHg PA V2 mean: 68.5 cm/sec TR max P.4 mmHg LV V1 mean P.4 mmHg LV V1 mean: 71.9 cm/sec LV V1 VTI: 23.1 cm ECHO/Echo Complete Interpretation Summary The estimated ejection fraction is 60 %. The left atrium is moderately enlarged. The study was technically difficult. Ordering Physician: Sunita Cat Referring Physician: Yolanda Mason Performed By: Erika Velazco RDCS, RVT
== END | disposition home or self-care (01) ==
LOC: CVS 09:53
PROVIDERS: PCP Family Medicine; Referring Provider Nurse Practitioner Acute Care; Visit Provider Nurse Practitioner Acute Care
DX: R06.00 Dyspnea, unspecified (principal)
CPT/HCPCS: 93306

== ENCOUNTER → 2023-04-03 | Outpatient (CLI) | payer OTHER, SELFPAY ==
[2023-04-03 12:35] LABS: Vitamin B12 640 pg/mL (211-911); Vitamin D,25 Hydroxy 50.9 ng/mL
[2023-04-03 12:47] LABS: ALB/GLOB Ratio 1.2 RATIO (0.9-2.4); AST(SGOT) 21 U/L (15-37); Alanine Aminotransfer ALT/SGPT 42 U/L (16-61); Albumin, Serum 3.9 g/dL (3.2-5.0); Alkaline Phosphatase 84 U/L (45-117); Anion Gap 5 (5-15); BUN 16 mg/dL (7-18); BUN/Creat Ratio 15.7 RATIO (10-20); Calcium,Total 9.2 mg/dL (8.5-10.1); Chloride 108 mmol/L (98-107); Cholesterol 150 mg/dL (200); Creatinine, Serum 1.02 mg/dL (0.70-1.30); EST Glomerular Filtration Rate 78 mL/min (>60); Est Glom Filt Rate - Afr Amer 95 mL/min (>60); Globulin 3.3 g/dL (2.2-4.2); Glucose 178 mg/dL (74-106); High Density Lipoprotein 34 mg/dL; Protein, Total 7.2 g/dL (6.4-8.2); Sodium Level 140 mmol/L (136-145); Thyroid Stim Hormone (TSH) 1.93 uIU/mL (0.358-3.74); Triglycerides 261 mg/dL; Very Low Density Lipoprotein 52 mg/dL (5-40)
== END | disposition home or self-care (01) ==
LOC: MFPLAB 09:45
PROVIDERS: PCP Family Medicine; Visit Provider Family Medicine
DX: E11.9 Type 2 diabetes mellitus without complications (principal); E03.9 Hypothyroidism, unspecified; R79.89 Other specified abnormal findings of blood chemistry; Z12.5 Encounter for screening for malignant neoplasm of prostate
CPT/HCPCS: 36415; 80053; 80061; 82306; 82607; 84443

== ENCOUNTER → 2023-04-20 | Outpatient (CLI) | payer OTHER, SELFPAY | END | disposition home or self-care (01) | PROVIDERS: PCP Family Medicine; Referring Provider Nurse Practitioner Acute Care; Visit Provider Nurse Practitioner Acute Care | DX: G47.31 Primary central sleep apnea (principal) | CPT/HCPCS: 95811 ==

== ENCOUNTER → 2023-05-22 | Outpatient (CLI) | payer OTHER, SELFPAY | END | disposition home or self-care (01) | LOC: SL 11:11 | PROVIDERS: PCP Family Medicine; Visit Provider Internal Medicine Critical Care Medicine | DX: G47.31 Primary central sleep apnea (principal) ==

== ENCOUNTER → 2023-07-24 | Outpatient (CLI) | payer OTHER, SELFPAY ==
--- OUTSIDE RECORDS SUMMARY | 2023-07-24 11:13 | XMS RPT_ITS | CCD ---
Author Name Unknown Address [address] [facility] [address] [place] [address] Organization [facility] Care Team Providers Care Machine Maintenance Supervisor Name Role Phone Virgil Mason MD Primary Care Provider Medications Current Medications Medication Drug Class(es) Dates Sig (Normalized) Sig (Original) predniSONE 20 mg oral tablet (2 sources) Start: 04-27-2022 End: 05-02-2022 take 2 tablets by mouth once daily predniSONE (DELTASONE) 20 mg tablet Indications: URI, acute Take 2 tablets by mouth once daily for 5 days. 10 tablet 0 04/27/2022 05/02/2022 Active Completed/Discontinued Medications Medication Drug Class(es) Dates Sig (Normalized) Sig (Original) 200 actuat albuterol 0.09 mg/actuat dry powder inhaler (2 sources) beta2-Adrenergic Agonist Start: 06-14-2019 take 2 puff(s) by inhalation every four hours as needed for muscle spasms albuterol sulfate 90 mcg/actuation aepb Indications: LRTI (lower respiratory tract infection) Inhale 2 Puffs as instructed every 4 hours as needed (SOB/wheezing/coug ronna spasms). 1 Inhaler 0 06/14/2019 Active Problems Problem Classification Problem Date Documented Da te Episodic/Chronic Other upper respiratory infections (1 source) Acute upper respiratory infection; Translations: [Acute upper respiratory infection, unspecified] Episodic Results Test Name Value Interpretation Reference Range Facil ity Vital Signs Date Time Vital Sign Value Performing Clinician Adrienne mckee 04-27-2022 10:44-0500 Body temperature 98.4 [degF] Chapincito Du APRN.MEAT LOINER Work Phone: [facility] 04-27-2022 10:44-0500 Body weight 115.03 kg Chapincito Du APRN.MEAT LOINER Work Phone: [facility] 04-27-2022 10:44-0500 Diastolic blood pressure 80 mm[Hg] Chapincito Du APRN.MEAT LOINER Work Phone: [facility] 04-27-2022 10:44-0500 Heart rate 92 /min Chapincito Du APRN.MEAT LOINER Work Phone: [facility] 04-27-2022 10:44-0500 Respiratory rate 16 /min Chapincito Du APRN.MEAT LOINER Work Phone: [facility] 04-27-2022 10:44-0500 SaO2% (BldA) [Mass fraction] 95 % Chapincito Du APRN.MEAT LOINER Work Phone: [facility] 04-27-2022 10:44-0500 Systolic blood pressure 124 mm[Hg] Chapincito Du APRN.MEAT LOINER Work Phone: [facility] Encounters Encounter Date Encounter Type Care Provider Facility Start: 04-28-2022 Telephone encounter Kamila James ANTHONY.MEAT LOINER Work Phone: [facility] Plan of Treatment Date Care Activity Detail Author Start: 02-10-2022 Influenza vaccination INFLUENZA (#1) [facility] Start: 06-12-2021 DEPRESSION ASSESSMENT DEPRESSION ASSESSMENT [facility] Start: 2013 PROSTATE CANCER SCREENING DISCUSSION PROSTATE CANCER SCREENING DISCUSSION [facility] Start: 2008 SHINGRIX VACCINE (1 of 2) SHINGRIX VACCINE (1 of 2) [facility] Start: 11-28-2003 COLOGUARD (FIT-DNA) COLOGUARD (FIT-DNA) [facility] Start: 11-28-2003 Colonoscopy COLONOSCOPY [facility] Start: 11-28-2003 COLORECTAL CANCER SCREENING COLORECTAL CANCER SCREENING [facility] Start: 11-28-[address] COLONOGRAPHY [facility] Start: 11-28-2003 DIABETES SCREEN DIABETES SCREEN [facility] Start: 11-28-2003 FECAL OCCULT BLOOD FECAL OCCULT BLOOD [facility] Start: 11-28-2003 SIGMOIDOSCOPY SIGMOIDOSCOPY [facility] Start: 1993 LIPID SCREEN LIPID SCREEN [facility] Start: 1977 Urine microalbumin profile DTAP,TDAP,TD (1 - Tdap) [facility] Start: 1976 HEPATITIS C SCREENING HEPATITIS C SCREENING [facility] Start: 1976 HIV SCREENING HIV SCREENING [facility] Influenza virus A an d B RNA and SARS-CoV-2 (COVID-19) N gene panel - Respiratory specimen by REMA with probe detection COVID WITH FLUA+B, ROUTINE Microbiology Routine URI, acute 04/27/2022 11:[address] [facility] Work Phone: Payers Date Payer Category Payer Private Health Insurance [facility] U[employer] CHOICE PLUS [id number] 2022-Present [phone] [address] [address] [place] [address] O [id number] 2022 Unknown [id number] Social History Date Type Detail Facility Start: 06-10-2014 Tobacco smoking stat [facility] Ex-smoker [facility] History of tobacco use Current smoker [facility] Start: 06-10-2014 Tobacco use and exposure User of smokeless tobacco [facility] History of tobacco use Snuff User [facility] Start: 04-27-2022 [facility] Start: 1960 Sex Assigned At Not on file [facility] Start: 04-17-2022 End: 04-27-2022 Exposure to SARS-CoV-2 (event) Not sure [facility] Work Phone: Note 04-28-2022 Telephone Encounter - Yadira Meehan MA - 04/28/2022 9:39 AM ESTTelephone Encounter - Kamila Lynne APRN.CNP - 04/28/2022 7:17 AM EST Note Date & Type Note Facility 04-28-2022 Miscellaneous Notes Formattin g of this note might be different from the original. Patient notified of results, verbalized understanding of instructions given. Yadira Meehan MA Negativefor COVID positive for flu a negative for flu B. Just symptom management with [id number] medications if symptoms worsen please follow-up with your primary care physician. documented in this encounter [facility] Progress note 04-27-2022 Note Date & Type Note Facility 04-27-2022 Note HNO ID: [id number] Author: Chapincito Du APRN.RANDOLPH Service: ? Author Type: Nurse Practitioner Type: Progress Notes Filed: 04/27/2022 11:44 AM Note Text: Subjective HPI HPI John Olivarez is a 61 year old male who presents today for CC of cough, fever, congestion, h/a, st. This started 5 days ago. Has tried otc medication for relief. Symptoms are worsened by nothing. Risk factors sick exposures at work. .Patient presents with: Cough: Cough, fever, FU, bodyaches and ST x 5 days History reviewed. No pertinent past medical history. No past surgical history on file. ALLERGIES Patient has no known allergies. MEDICATIONS FARXIGA 5 mg tablet Take 5 mg by mouth once daily. hydrOXYzine HCl (ATARAX) 25 mg tablet Take 1 tablet by mouth as needed. TRADJENTA 5 mg tab Take 1 tablet by mouth once daily. metFORMIN ER (GLUCOPHAGE XR) 500 mg 24 hr tablet Take 2 tablets by mouth once daily. albuterol sulfate 90 mcg/actuation aepb Inhale 2 Puffs as instructed every 4 hours as needed (SOB/wheezing/coughing spasms). cholecalciferol (VITAMIN D3) 1,000 unit tab tablet Take by mouth twice daily. levothyroxine (SYNTHROID) 125 mcg tablet Take 1 tablet by mouth once daily. probenecid 500 mg tablet Take 1 tablet by mouth twice daily. tamsulosin (FLOMAX) 0.4 mg Take 1 capsule by mouth once daily. simvastatin (ZOCOR) 40 mg tablet Take 1 tablet by mouth once daily. Omeprazole Magnesium 20 mg tablet Take 1 tablet by mouth once daily. predniSONE (DELTASONE) 20 mg tablet Take 2 tablets by mouth once daily for 5 days. escitalopram oxalate (LEXAPRO) 20 mg tablet Take 1 tablet by mouth once daily. atenolol (TENORMIN) 50 mg tablet Take 0.5 tablets by mouth once daily. No family history on file. Social History Tobacco Use Smoking status: Former Smokeless tobacco: Current Types: Snuff Review of Systems Constitutional: Positive for fever. HENT: Positive for congestion and sore throat. Negative for ear pain and nosebleeds. Respiratory: Positive for cough and sputum production. Negative for shortness of breath and wheezing. Cardiovascular: Negative for chest pain. Musculoskeletal: Negative for neck pain. Skin: Negative for itching and rash. Neurological: Positive for headaches. Objective Blood pressure 124/80, pulse 92, temperature 36.9 ?C (98.4 ?F), temperature source Tympanic, resp. rate 16, weight 115 kg (253 lb 9.6 oz), SpO2 95 %. Physical Exam Constitutional: General: He is not in acute distress. Appearance: He is not toxic-appearing or diaphoretic. HENT: Head: Normocephalic and atraumatic. Right Ear: Hearing, tympanic membrane, ear canal and external ear normal. Left Ear: Hearing, tympanic membrane, ear canal and external ear normal. Nose: Nose normal. Mouth/Throat: Pharynx: Uvula midline. No pharyngeal swelling, oropharyngeal exudate, posterior oropharyngeal erythema or uvula swelling. Eyes: General: Lids are normal. No scleral icterus. Right eye: No discharge. Left eye: No discharge. Conjunctiva/sclera: Conjunctivae normal. Pupils: Pupils are equal, round, and reactive to light. Neck: Trachea: Trachea normal. Cardiovascular: Rate and Rhythm: Normal rate and regular rhythm. Heart sounds: Normal heart sounds. Pulmonary: Effort: Pulmonary effort is normal. Breath sounds: Normal breath sounds. Musculoskeletal: Cervical back: Normal range of motion and neck supple. Lymphadenopathy: Cervical: No cervical adenopathy. Right cervical: No superficial cervical adenopathy. Left cervical: No superficial cervical adenopathy. Skin: Findings: No rash. Neurological: Mental Status: He is alert and oriented to person, place, and time. ASSESSMENT/PLAN: 1. URI, acute - ICD9: 465.9, ICD10: J06.9 - Discussed viral etiology and rationale for treatment. - Symptomatic treatment with prn analgesia - Supportive care with fluids and rest - Follow up in 3-5 days if symptoms persist or sooner if worsening of symptoms - PREDNISONE 20 MG TABLET - COVID WITH FLUA+B, ROUTINE Agrees to plan Chapincito Du APRN.MEAT LOINER [facility] Influenza virus A and B RNA and SARS-CoV-2 (COVID-19) N gene panel REMA+probe (Resp) 04-27-2022 Note Date & Type Note Facility 04-27-2022 Influenza virus A and B RNA and SARS-CoV-2 (COVID-19) N gene panel REMA+probe (Resp) COVID 19 RESULT: SARS-CoV-2 (Agent of COVID-19) Not Detected by RT-PCR or equivalent method. tyesha [id number] (BEBO)_EUA This test was developed and its performance characteristics determined by [facility]'s [facility] [place]. This test has been authorized by FDA under an Emergency Use Authorization (EUA). This test has been validated in accordance with the FDA's Guidance Document Policy for Diagnostics Testing in Laboratories Certified to Perform High Complexity Testing under CLIA prior to Emergency use Authorization for Coronavirus Disease 2019 during the Public Health Emergency issued on August 10, 2019. Test performed by [facility], [facility] [place], [address] [place] [address]. INFLUENZA A PCR: Positive for Influenza A by RT-PCR INFLUENZA B PCR: Negative for Influenza B by RT-PCR [facility] History of Present illness Narrative 04-27-2022 Chapincito Du APRN.MEAT LOINER - 04/27/2022 11:42 AM EST Note Date & Type Note Facility 04-27-2022 History of Presen t illness Narrative Subjective HPI HPI John Olivarez is a 61 year old male who presents today for CC of cough, fever, congestion, h/a, st. This started 5 days ago. Has tried otc medication for relief. Symptoms are worsened by nothing. Risk factors sick exposures at work. .Patient presents with: Cough: Cough, fever, FU, bodyaches and ST x 5 days History reviewed. No pertinent past medical history. No past surgical history on file. ALLERGIES Patient has no known allergies. MEDICATIONS FARXIGA 5 mg tablet Take 5 mg by mouth once daily. hydrOXYzine HCl (ATARAX) 25 mg tablet Take 1 tablet by mouth as needed. TRADJENTA 5 mg tab Take 1 tablet by mouth once daily. metFORMIN ER (GLUCOPHAGE XR) 500 mg 24 hr tablet Take 2 tablets by mouth once daily. albuterol sulfate 90 mcg/actuation aepb Inhale 2 Puffs as instructed every 4 hours as needed (SOB/wheezing/coughing spasms). cholecalciferol (VITAMIN D3) 1,000 unit tab tablet Take by mouth twice daily. levothyroxine (SYNTHROID) 125 mcg tablet Take 1 tablet by mouth once daily. probenecid 500 mg tablet Take 1 tablet by mouth twice daily. tamsulosin (FLOMAX) 0.4 mg Take 1 capsule by mouth once daily. simvastatin (ZOCOR) 40 mg tablet Take 1 tablet by mouth once daily. Omeprazole Magnesium 20 mg tablet Take 1 tablet by mouth once daily. predniSONE (DELTASONE) 20 mg tablet Take 2 tablets by mouth once daily for 5 days. escitalopram oxalate (LEXAPRO) 20 mg tablet Take 1 tablet by mouth once daily. atenolol (TENORMIN) 50 mg tablet Take 0.5 tablets by mouth once daily. No family history on file. Social History Tobacco Use Smoking status: Former Smokeless tobacco: Current Types: Snuff Review of Systems Constitutional: Positive for fever. HENT: Positive for congestion and sore throat. Negative for ear pain and nosebleeds. Respiratory: Positive for cough and sputum production. Negative for shortness of breath and wheezing. Cardiovascular: Negative for chest pain. Musculoskeletal: Negative for neck pain. Skin: Negative for itching and rash. Neurological: Positive for headaches. Objective Blood pressure 124/80, pulse 92, temperature 36.9 C (98.4 F), temperature source Tympanic, resp. rate 16, weight 115 kg (253 lb 9.6 oz), SpO2 95 %. Physical Exam Constitutional: General: He is not in acute distress. Appearance: He is not toxic-appearing or diaphoretic. HENT: Head: Normocephalic and atraumatic. Right Ear: Hearing, tympanic membrane, ear canal and external ear normal. Left Ear: Hearing, tympanic membrane, ear canal and external ear normal. Nose: Nose normal. Mouth/Throat: Pharynx: Uvula midline. No pharyngeal swelling, oropharyngeal exudate, posterior oropharyngeal erythema or uvula swelling. Eyes: General: Lids are normal. No scleral icterus. Right eye: No discharge. Left eye: No discharge. Conjunctiva/sclera: Conjunctivae normal. Pupils: Pupils are equal, round, and reactive to light. Neck: Trachea: Trachea normal. Cardiovascular: Rate and Rhythm: Normal rate and regular rhythm. Heart sounds: Normal heart sounds. Pulmonary: Effort: Pulmonary effort is normal. Breath sounds: Normal breath sounds. Musculoskeletal: Cervical back: Normal range of motion and neck supple. Lymphadenopathy: Cervical: No cervical adenopathy. Right cervical: No superficial cervical adenopathy. Left cervical: No superficial cervical adenopathy. Skin: Findings: No rash. Neurological: Mental Status: He is alert and oriented to person, place, and time. ASSESSMENT/PLAN: 1. URI, acute - ICD9: 465.9, ICD10: J06.9 - Discussed viral etiology and rationale for treatment. - Symptomatic treatment with prn analgesia - Supportive care with fluids and rest - Follow up in 3-5 days if symptoms persist or sooner if worsening of symptoms - PREDNISONE 20 MG TABLET - COVID WITH FLUA+B, ROUTINE Agrees to plan Chapincito Du APRN.RANDOLPH documented in this encounter [facility] Instructions 04-27-2022 Patient Instructions Note Date & Type Note Facility 04-27-2022 Instructions Chapincito Du APRN.RANDOLPH - 04/27/2022 11:20 AM EST How to Manage Common Symptoms Associated with COVID for Adults Fever- Fever is a temperature over 100.4 F and can occur when the body is fighting an infection. To help treat a fever: Drink plenty of fluids and stay well hydrated. Eat small amounts of easy to digest food. Rest. Your body needs rest to recover, but getting up and moving around the house frequently is a good idea. You should try to continue doing your normal daily activities (bathing, toileting, grooming, cooking), though you will probably feel tired, and need to rest often. Avoid any heavy activity or exercise, as this will increase your body temperature. Dress in light clothing and stay covered in a light sheet. Keep the room temperature cool. Take a slightly warm (not cold or cool) bath, or apply damp washcloths to the forehead and wrists. Cough- Cough is a common symptom associated with COVID and can be bothersome. To help treat a cough: Stay well hydrated. Try warm water or tea with lemon and/or honey to help soothe the cough. Use a humidifier to add moisture to the air. Try a product with menthol, like a cough drop or a rub for your chest such as Vicks, which can help reduce cough. Try cough drops. Avoid smoking and other strong odors or perfumes. Try breathing exercises to keep your lungs open and clear. Take a big deep breath through your nose and hold for 5 seconds before slowly releasing. Repeat frequently, while you are awake. Congestion- Runny nose or nasal congestion can occur with COVID. Treatment can help relieve symptoms: Try OTC nasal saline spray, or nasal saline rinse to relieve mucus congestion. Nasal strips can help keep nasal passages open, to increase airflow. Elevating your head with an extra pillow in bed can help reduce congestion. Using a humidifier can increase moisture in the air, and make breathing easier. Sore Throat- Another common symptom with COVID, can be managed at home by: Stay well hydrated. Gargle with salt water - mix teaspoon salt with 1 cup of warm water and gargle. This helps to loosen mucus in the back of the throat and may reduce discomfort. Try ice chips, popsicles or lozenges to soothe the throat. Nausea/Vomiting/Diarrhea- These are common symptoms, and staying hydrated is most important. If you are nauseous or vomiting, start with small sips of water every 10-15 minutes and increase as tolerated. You can try sucking an ice cube too. If tolerating, you can try pedialyte or Gatorade, or flat sprite or dennis-wayne. Start slowly and increase as you are able to. Instead of meals, try smaller, more frequent snacks. Try eating bland foods like crackers, toast, rice, and applesauce. Avoid spicy, greasy or fried foods and dairy containing foods. Even if you aren't feeling hungry due to lack of smell or taste, it is important to try to take in some food when you are able. After drinking and eating, rest in an upright position for up to two hours as needed to help decrease nauseous feelings. Try closing your eyes, avoid moving and watching TV. Avoid strong odors that can make you feel more nauseated. When to seek emergency medical attention Look for emergency warning signs for COVID-19. If having any of these symptoms, seek emergency medical care immediately: Trouble breathing Persistent pain or pressure in the chest New confusion Inability to wake or stay awake Bluish lips or face *This list is not all possible symptoms. Please call your medical provider for any other symptoms that are severe or concerning to you. documented in this encounter [facility] Evaluation note Note Date & Type Note Facility documented in this encounter [facility] Summary Purpose Family History No Family History Records Found Advance Directives No Advanced Directives Records Found Additional Source Comments Source Comments (unrecognize d section and content) In the event this informatio n is protected by the Federal Confidentiality of Alcohol and Drug Abuse Patient Records regulations: The Federal rules restrict any use of the information to criminally investigate or prosecute any alcohol or drug abuse patient.[facility] the event this information is protected by the Federal Confidentiality of Alcohol and Drug Abuse Patient Records regulations: The Federal rules restrict any use of the information to criminally investigate or prosecute any alcohol or drug abuse patient.[facility] Reason for Visit (unrecogniz ed section and content) Reason Comments Results Care Teams (unrecognized sec tion and content) Machine Maintenance Supervisor Relationship Specialty Start Date End Date Virgil Mason MD [address] [place] [id number] PCP - General Family Medicine 10/09/15 (unrecognized sect ion and content) No Status Records Found INFORMATION SOURCE (unrecogn ized section and content) FOR RECORDS PERTAINING TO PATIENTS WHO ARE OR HAVE BEEN ENROLLED IN A CHEMICAL DEPENDENCY/SUBSTANCEABUSE PROGRAM, SOME INFORMATION MAY BE OMITTED. This clinical summary was aggregated from multiple sources. Caution should be exercised in using it in the provision of clinical care. This summary normalizes information from multiple sources, and as a consequence, information in this document may materially change the coding, format and clinical context of patient data. In addition, data may be omitted in some cases. CLINICAL DECISIONS SHOULD BE BASED ON THE PRIMARY CLINICAL RECORDS. [employer] provides no warranty or guarantee of the accuracy or completeness of information in this document.
== END | disposition home or self-care (01) ==
LOC: SL 10:49
PROVIDERS: PCP Family Medicine; Referring Provider Nurse Practitioner Acute Care; Visit Provider Nurse Practitioner Acute Care
DX: G47.31 Primary central sleep apnea (principal)
CPT/HCPCS: 98960; G0463

== ENCOUNTER → 2023-09-29 | Outpatient (CLI) | payer OTHER, SELFPAY ==
[2023-09-29 12:31] LABS: Hemoglobin A1c 7.5 % (3.8-5.6)
[2023-09-29 12:48] LABS: ALB/GLOB Ratio 1.2 RATIO (0.9-2.4); AST(SGOT) 21 U/L (15-37); Alanine Aminotransfer ALT/SGPT 35 U/L (16-61); Alkaline Phosphatase 72 U/L (45-117); Anion Gap 9 (5-15); BUN 24 mg/dL (7-18); BUN/Creat Ratio 22.9 RATIO (10-20); Calcium,Total 9.3 mg/dL (8.5-10.1); Chloride 106 mmol/L (98-107); Cholesterol 129 mg/dL (200); Creatinine, Serum 1.05 mg/dL (0.70-1.30); EST Glomerular Filtration Rate 75 mL/min (>60); Est Glom Filt Rate - Afr Amer 91 mL/min (>60); Globulin 3.3 g/dL (2.2-4.2); Glucose 115 mg/dL (74-106); High Density Lipoprotein 31 mg/dL; Potassium 3.8 mmol/L (3.5-5.1); Protein, Total 7.3 g/dL (6.4-8.2); Sodium Level 140 mmol/L (136-145); Triglycerides 234 mg/dL; Very Low Density Lipoprotein 47 mg/dL (5-40)
== END | disposition home or self-care (01) ==
LOC: MFPLAB 09:47
PROVIDERS: PCP Family Medicine; Visit Provider Family Medicine
DX: E11.9 Type 2 diabetes mellitus without complications (principal); E78.00 Pure hypercholesterolemia, unspecified
CPT/HCPCS: 36415; 80053; 80061; 83036

== ENCOUNTER → 2024-04-08 | Outpatient (CLI) | payer OTHER, SELFPAY ==
[2024-04-08 18:40] LABS: Vitamin B12 977 pg/mL (211-911); Vitamin D,25 Hydroxy 44.1 ng/mL
[2024-04-08 19:00] LABS: ALB/GLOB Ratio 1.2 RATIO (0.9-2.4); AST(SGOT) 16 U/L (15-37); Alanine Aminotransfer ALT/SGPT 32 U/L (16-61); Albumin, Serum 4.1 g/dL (3.2-5.0); Alkaline Phosphatase 75 U/L (45-117); Anion Gap 8 (5-15); BUN 18 mg/dL (7-18); BUN/Creat Ratio 20.4 RATIO (10-20); Calcium,Total 9.6 mg/dL (8.5-10.1); Chloride 107 mmol/L (98-107); Cholesterol 146 mg/dL (200); Creatinine, Serum 0.88 mg/dL (0.70-1.30); EST Glomerular Filtration Rate 92 mL/min (>60); Est Glom Filt Rate - Afr Amer 111 mL/min (>60); Globulin 3.4 g/dL (2.2-4.2); Glucose 101 mg/dL (74-106); High Density Lipoprotein 39 mg/dL; PSA,Total - Annual Screen 0.93 ng/mL (0.00-4.00); Potassium 3.9 mmol/L (3.5-5.1); Protein, Total 7.5 g/dL (6.4-8.2); Sodium Level 138 mmol/L (136-145); Thyroid Stim Hormone (TSH) 0.382 uIU/mL (0.358-3.740); Triglycerides 145 mg/dL; Very Low Density Lipoprotein 29 mg/dL (5-40)
--- OUTSIDE RECORDS SUMMARY | 2024-04-08 19:55 | XMS RPT_ITS | CCD ---
Author Organization [facility] Care Team Providers Care Founder And President Name Role Phone Renan Mason MD Primary Care Provider ELVI HUDSON Attending Unavailable RENAN MASON Primary Care Unavailabl e Medications Current Medications Medication Drug Class(es) Dates Sig (Normalized) Sig (Original) aspirin 81 mg chewable tablet (2 sources) Platelet Aggregation Inhibitor, Nonsteroidal Anti-inflammatory Drug take 1 tablet by mouth once daily aspirin 81 mg chewable tablet Take 81 mg by mouth once daily. Active atenolol 50 mg oral tablet (5 sources) beta-Adrenergic Cheryl take 0.5 tablet by mouth once daily atenolol (TENORMIN) 50 mg tablet Take 0.5 tablets by mouth once daily. Active Comment on above: Take 0.5 tablets by mouth once daily. cholecalciferol 0.025 mg oral tablet (5 sources) Vitamin D cholecalciferol (VITAMIN D3) 1,000 unit tab tablet Take by mouth twice daily. Active Comment on above: Take by mouth twice daily. dapagliflozin 5 mg oral tablet (5 sources) Sodium-Glucose Cotransporter 2 Inhibitor Start: 2 take 1 tablet by mouth once daily FARXIGA 5 mg tablet Take 5 mg by mouth once daily. 03/30/2022 Active Comment on above: Take 5 mg by mouth o nce daily. 0.5 ml dulaglutide 3 mg/ml auto-injector (2 sources) GLP-1 Receptor Agonist inject 1.5 mg by subcutaneous injection every week dulaglutide (TRULICITY) 1.5 mg/0.5 mL pen injector Inject 1.5 mg subcutaneously one time a week. Active escitalopram 20 mg oral tablet (5 sources) Serotonin Reuptake Inhibitor Start: 9 take 1 tablet by mouth once daily escitalopram oxalate (LEXAPRO) 20 mg tablet Take 1 tablet by mouth once daily. 02/28/2019 Active Comment on above: Take 1 tablet by larissa once daily. hydrOXYzine hydrochloride 25 mg oral tablet (5 sources) Antihistamine Start: 9 hydrOXYzine HCl (ATARAX) 25 mg tablet Take 1 tablet by mouth as needed. 03/29/2019 Active Comment on above: Take 1 tablet by larissa as needed. levothyroxine sodium 0.125 mg oral tablet (5 sources) l-Thyroxine take 1 tablet by mouth once daily levothyroxine (SYNTHROID) 125 mcg tablet Take 1 tablet by mouth once daily. Active Comment on above: Take 1 tablet by larissa once daily. 24 hr metFORMIN hydrochloride 500 mg extended release oral tablet (5 sources) Biguanide Start: 9 take 2 tablets by mouth once daily metFORMIN ER (GLUCOPHAGE XR) 500 mg 24 hr tablet Take 2 tablets by mouth once daily. 03/29/2019 Active Comment on above: Take 2 tablets by mo [facility] once daily. omeprazole 20 mg delayed release oral tablet (5 sources) Proton Pump Inhibitor take 1 tablet by mouth once daily Omeprazole Magnesium 20 mg tablet Take 1 tablet by mouth once daily. Active Comment on above: Take 1 tablet by larissa once daily. predniSONE 20 mg oral tablet (2 sources) Start: 2 End: 2 take 2 tablets by mouth once daily predniSONE (DELTASONE) 20 mg tablet Indications: URI, acute Take 2 tablets by mouth once daily for 5 days. 10 tablet 0 04/27/2022 05/02/2022 Active Comment on above: Take 2 tablets by mo [facility] once daily for 5 days. probenecid 500 mg oral tablet (5 sources) take 1 tablet by mouth twice daily probenecid 500 mg tablet Take 1 tablet by mouth twice daily. Active Comment on above: Take 1 tablet by larissa twice daily. rosuvastatin calcium 20 mg oral tablet (2 sources) HMG-CoA Reductase Inhibitor take 1 tablet by mouth once daily rosuvastatin (CRESTOR) 20 mg tablet Take 20 mg by mouth once daily. Active tadalafil (2 sources) Phosphodiesterase 5 Inhibitor TADALAFIL ORAL Take by mouth. Active tamsulosin hydrochloride 0.4 mg oral capsule (5 sources) alpha-Adrenergic Cheryl take 1 capsule by mouth once daily tamsulosin (FLOMAX) 0.4 mg Take 1 capsule by mouth once daily. Active Comment on above: Take 1 capsule by mo uth once daily. Vitamin B Complex (2 sources) take 1 tablet by mouth once daily vitamin b complex tab Take 1 tablet by mouth once daily. Active Completed/Discontinued Medications Medication Drug Class(es) Dates Sig (Normalized) Sig (Original) 200 actuat albuterol 0.09 mg/actuat dry powder inhaler (4 sources) beta2-Adrenergic Agonist Start: 06-14-2019 End: 02-26-2024 take 2 puff(s) by inhalation every four hours as needed for muscle spasms albuterol sulfate 90 mcg/actuation aepb Indications: LRTI (lower respiratory tract infection) Inhale 2 Puffs as instructed every 4 hours as needed (SOB/wheezing/cough ing spasms). 1 Inhaler 06/14/2019 02/26/2024 Discontinued Comment on above: Inhale 2 Puffs as in structed every 4 hours as needed (SOB/wheezing/coughing spasms). linagliptin 5 mg oral tablet (4 sources) Dipeptidyl Peptidase 4 Inhibitor Start: 05-10-2019 End: 02-26-2024 take 1 tablet by mouth once daily TRADJENTA 5 mg tab Take 1 tablet by mouth once daily. 05/10/2019 02/26/2024 Discontinued Comment on above: Take 1 tablet by larissa th once daily. simvastatin 40 mg oral tablet (4 sources) HMG-CoA Reductase Inhibitor End: 02-26-2024 take 1 tablet by mouth once daily simvastatin (ZOCOR) 40 mg tablet Take 1 tablet by mouth once daily. 02/26/2024 Discontinued Comment on above: Take 1 tablet by larissa th once daily. Problems Active Problems Problem Classification Problem Date Documented Da te Episodic/Chronic Diabetes mellitus without complication (2 sources) Type 2 diabetes mellitus without complication; Translations: [Type 2 diabetes mellitus without complications] Onset: 02-26-2024 02-26-2024 Chronic Disorders of lipid metabolism (2 sources) Hypercholesterolemi a; Translations: [Pure hypercholesterolemi a, unspecified] Onset: 02-26-2024 02-26-2024 Chronic Essential hypertension (2 sources) Essential hypertension; Translations: [Essential (primary) hypertension] Onset: 02-26-2024 02-26-2024 Chronic Hyperplasia of prostate (2 sources) Nocturia due to benign prostatic hypertrophy; Translations: [Benign prostatic hyperplasia with lower urinary tract symptoms] Onset: 02-26-2024 02-26-2024 Chronic Other upper respiratory infections (1 source) Acute upper respiratory infection; Translations: [Acute upper respiratory infection, unspecified] Episodic Residual codes; unclassified (3 sources) Central sleep apnea syndrome; Translations: [Primary central sleep apnea] Onset: 02-26-2024 02-26-2024 Chronic Residual codes; unclassified (1 source) Primary central sleep apnea; Translations: [Central sleep apnea] Onset: 02-26-2024 Chronic Past or Other Problems Problem Classification Problem Date Documented Da te Episodic/Chronic Residual codes; unclassified (4 sources) Obstructive sleep apnea syndrome; Translations: [Obstructive sleep apnea (adult) (pediatric)] Onset: 11-07-2023 Resolved: 02-26-2024 11-07-2023 Chronic Results Test Name Value Interpretation Reference Range Facil sebastiánclay Liseth 02-27-2024 KRISTEN Telephone (SLEWST) CARLA OLIVAREZ ([id number]) 1960 M Date Time Provider Department 02/27/24 ELVI HUDSON During your visit today, we recorded the following information about you: Elvi Hudson APRN.CNP 02/27/2024 5:05 PM Signed LM on that I was calling in follow up re his sleep apnea after I discussed his case with Dr Elliott, recommended he call [phone] ask for Sleep nurse. When is best time for me to call him? LIZETT Wadsworth Rebecca, APRN.CNP 02/28/2024 5:31 PM Signed I spoke to pt, discussed looks like both obstructive>central. Continue with ASV. Elvi Hudson APRN.CNP Allergies As of Date: 02/27/2024 (No Known Allergies) Date Reviewed: 02/26/2024 Reviewed by: Elvi Hudson APRN.SECURITY OPERATIONS CENTER ANALYST - Fully Assessed Reason for Visit: Results [95] Patient Update [1234] Prescriptions as of 02/29/2024 - rosuvastatin (CRESTOR) 20 mg tablet Take 20 mg by mouth once daily. - dulaglutide (TRULICITY) 1.5 mg/0.5 mL pen injector Inject 1.5 mg subcutaneously one time a week. - vitamin b complex tab Take 1 tablet by mouth once daily. - aspirin 81 mg chewable tablet Take 81 mg by mouth once daily. - TADALAFIL ORAL Take by mouth. - FARXIGA 5 mg tablet Take 5 mg by mouth once daily. - escitalopram oxalate (LEXAPRO) 20 mg tablet Take 1 tablet by mouth once daily. - hydrOXYzine HCl (ATARAX) 25 mg tablet Take 1 tablet by mouth as needed. - metFORMIN ER (GLUCOPHAGE XR) 500 mg 24 hr tablet Take 2 tablets by mouth once daily. - cholecalciferol (VITAMIN D3) 1,000 unit tab tablet Take by mouth twice daily. - levothyroxine (SYNTHROID) 125 mcg tablet Take 1 tablet by mouth once daily. - probenecid 500 mg tablet Take 1 tablet by mouth twice daily. - tamsulosin (FLOMAX) 0.4 mg Take 1 capsule by mouth once daily. - Omeprazole Magnesium 20 mg tablet Take 1 tablet by mouth once daily. - atenolol (TENORMIN) 50 mg tablet Take 0.5 tablets by mouth once daily. Problem List As Of Date 02/27/2024 Noted Resolved DARINEL (obstructive sleep apnea) [G47.33] 11/07/2023 02/26/2024 Type 2 diabetes mellitus without complication (*02/26/2024 Benign prostatic hyperplasia with nocturia [N40*02/26/2024 Primary hypertension [I10] 02/26/2024 Hypercholesterolemia [E78.00] 02/26/2024 Central sleep apnea [G47.31] 02/26/2024 Encounter Status:Closed by CARINE GOEL on 02/29/24 [facility] CNOVon 02-26-2024 CNOV Office Visit (SLEWST ) CARLA OLIVARZE ([id number]) 1960 M Date Time Provider Department 02/26/24 9:00 AM ELVI HUDSON During your visit today, we recorded the following information about you: Pulse Respiration Blood pressure Weight 74/minute 16/minute 127/87 110.1 kg Elvi Hudson, ANTHONY.SECURITY OPERATIONS CENTER ANALYST 02/26/2024 6:16 PM Signed [facility] New Patient Evaluation PATIENT NAME: Carla Olivarez DATE OF SERVICE: February 26, 2024 CONSULTING PROVIDER: No referring provider defined for this encounter. REASON FOR VISIT: CSA HPI: Carla Olivarez is a 63 year old male. Sleep-related history: CSA on ASV, referred by [facility]. DME [employer]. As soon as this device is paid off he wants to change to a different DME ([employer]). He was diagnosed in 01/2023. Work up was done because he c/o being tired. He is now getting used to wearing PAP. Review of his download shows he is using it more, has more nights that are >4 hrs. His AHI is normalized. Snoring is abolished with PAP. No hx heart failure No stroke or other brain injury No opioids SLEEP-WAKE SCHEDULE Bedtime: 9-10 PM. He has a hard time falling asleep. Time to fall asleep: varies, can't shut mind off Wake time: 6-8 AM, without an alarm. After falling asleep: he wakes up 3-4 time(s) per night, and does not know the reason for waking up. He has been this way his whole life. Some nocturia. Dry mouth so he drinks water. On weekends, he maintains the same sleep schedule. Average total sleep time (in a 24 hour period): 7 hours. SLEEP-RELATED DETAILS Preferred sleep position: side or back Breathing disturbances and other behaviors during sleep: snoring. GERD or aspiration: No PPI is effective Waking up with heart pounding or racing: No Anxiety or rumination: Yes can't shut mind off some nights when he gets into bed He does not report having an urge to move the legs in the evening (when resting) that is accompanied or caused by uncomfortable and/or unpleasant sensations in the legs. He has not been told that he has leg kicking during sleep. He denies any history of parasomnias. Daytime sleepiness is not a problem. 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 He does not have difficulty with memory or concentration. He denies falling asleep or dozing off when driving. He does not take naps. He does drink 2 caffeinated beverages per day. There has not been a recent change in weight. Patient Questionnaires Sleep Scores PAST TREATMENTS: ASV PRIOR SLEEP STUDIES: A Polysomnogram performed on 01/19/23 revealed an AHI of 28--central sleep apnea. Recommended titration with ASV if ER>45%. History reviewed. No pertinent past medical history. History reviewed. No pertinent surgical history. ACTIVE PROBLEM LIST Type 2 Diabetes Mellitus Without Complication (Hcc) Benign Prostatic Hyperplasia With Nocturia Primary Hypertension Hypercholesterolemia Central Sleep Apnea Allergies As of Date: 02/26/2024 (No Known Allergies) Fully Assessed 02/26/2024 CURRENT MEDICATIONS: rosuvastatin (CRESTOR) 20 mg tablet Take 20 mg by mouth once daily. dulaglutide (TRULICITY) 1.5 mg/0.5 mL pen injector Inject 1.5 mg subcutaneously one time a week. vitamin b complex tab Take 1 tablet by mouth once daily. aspirin 81 mg chewable tablet Take 81 mg by mouth once daily. TADALAFIL ORAL Take by mouth. FARXIGA 5 mg tablet Take 5 mg by mouth once daily. escitalopram oxalate (LEXAPRO) 20 mg tablet Take 1 tablet by mouth once daily. hydrOXYzine HCl (ATARAX) 25 mg tablet Take 1 tablet by mouth as needed. metFORMIN ER (GLUCOPHAGE XR) 500 mg 24 hr tablet Take 2 tablets by mouth once daily. cholecalciferol (VITAMIN D3) 1,000 unit tab tablet Take by mouth twice daily. levothyroxine (SYNTHROID) 125 mcg tablet Take 1 tablet by mouth once daily. probenecid 500 mg tablet Take 1 tablet by mouth twice daily. tamsulosin (FLOMAX) 0.4 mg Take 1 capsule by mouth once daily. Omeprazole Magnesium 20 mg tablet Take 1 tablet by mouth once daily. atenolol (TENORMIN) 50 mg tablet Take 0.5 tablets by mouth once daily. Review of Systems Constitutional: Negative for recent unintentional weight change. Cardiovascular: Negative for palpitations. Gastrointestinal: Negative for heartburn. Genitourinary: Positive for nocturia. Neurological: Negative for headaches and memory loss. SOCIAL HISTORY: Social History Tobacco Use Smoking status: Former Smokeless tobacco: Current Types: Snuff FAMILY HISTORY: History reviewed. No pertinent family history. There is no family history of sleep disorders. PHYSICAL EXAMINATION: Vital Signs: BP 127/87 Pulse 74 Resp 16 Wt 110.1 kg (242 lb 11.6 oz) SpO2 100% (more content not included)... Normal [facility] ([id number]) 1960 M Date Time Provider Department 11/07/23 NEUROLOGY PROVIDER DONNA During your visit today, we recorded the following information about you: Tricia Arcos LPN 11/07/2023 12:03 PM Signed Phone call placed patient reported current DME [employer], new CPAP machine in 2023 current mask issues appointment scheduled with Júnior Hudson 02/26/2024. Tricia Arcos LPN Allergies As of Date: 11/07/2023 (No Known Allergies) Date Reviewed: 04/27/2022 Reviewed by: Layla Cristobal LPN - Fully Assessed Reason for Visit: Appointment [186] Primary Visit Diagnosis:DARINEL (obstructive sleep apnea) [G47.33] Prescriptions as of 11/07/2023 - FARXIGA 5 mg tablet Take 5 mg by mouth once daily. - escitalopram oxalate (LEXAPRO) 20 mg tablet Take 1 tablet by mouth once daily. - hydrOXYzine HCl (ATARAX) 25 mg tablet Take 1 tablet by mouth as needed. - TRADJENTA 5 mg tab Take 1 tablet by mouth once daily. - metFORMIN ER (GLUCOPHAGE XR) 500 mg 24 hr tablet Take 2 tablets by mouth once daily. - albuterol sulfate 90 mcg/actuation aepb Inhale 2 Puffs as instructed every 4 hours as needed (SOB/wheezing/coughing spasms). - cholecalciferol (VITAMIN D3) 1,000 unit tab tablet Take by mouth twice daily. - levothyroxine (SYNTHROID) 125 mcg tablet Take 1 tablet by mouth once daily. - probenecid 500 mg tablet Take 1 tablet by mouth twice daily. - tamsulosin (FLOMAX) 0.4 mg Take 1 capsule by mouth once daily. - simvastatin (ZOCOR) 40 mg tablet Take 1 tablet by mouth once daily. - Omeprazole Magnesium 20 mg tablet Take 1 tablet by mouth once daily. - atenolol (TENORMIN) 50 mg tablet Take 0.5 tablets by mouth once daily. Problem List As Of Date 11/07/2023 Noted Resolved DARINEL (obstructive sleep apnea) [G47.33] 11/07/2023 Encounter Status:Closed by TRICIA ARCOS on 11/07/23 Normal [facility] Vital Signs Date Time Vital Sign Value Performing Clinician Adrienne mckee 02-26-2024 09:02-0400 Body weight 110.1 kg Elvi Hudson APRN.CNP Work Phone: [facility] 02-26-2024 09:02-0400 Diastolic blood pressure 87 mm[Hg] Elvi Hudson APRN.CNP Work Phone: [facility] 02-26-2024 09:02-0400 Heart rate 74 /min Elvi Hudson APRN.CNP Work Phone: [facility] 02-26-2024 09:02-0400 Respiratory rate 16 /min Elvi Hudson APRN.CNP Work Phone: [facility] 02-26-2024 09:02-0400 SaO2% (BldA) [Mass fraction] 100 % Elvi Hudson APRN.CNP Work Phone: [facility] 02-26-2024 09:02-0400 Systolic blood pressure 127 mm[Hg] Elvi Hudson CATTLE EXAMINER.SECURITY OPERATIONS CENTER ANALYST Work Phone: [facility] 04-27-2022 10:44-0500 Body temperature 98.4 [degF] [place] Du CATTLE EXAMINER.SECURITY OPERATIONS CENTER ANALYST Work Phone: [facility] 04-27-2022 10:44-0500 Body weight 115.03 kg [place] Du CATTLE EXAMINER.SECUR[employer] OPERATIONS CENTER ANALYST Work Phone: [facility] 04-27-2022 10:44-0500 Diastolic blood pressure 80 mm[Hg] [place] Du CATTLE EXAMINER.SECURITY OPERATIONS CENTER ANALYST Work Phone: [facility] 04-27-2022 10:44-0500 Heart rate 92 /min [place] CATTLE EXAMINER.SECURITY OPERATIONS CENTER ANALYST Work Phone: [facility] 04-27-2022 10:44-0500 Respiratory rate 16 /min [place] CATTLE EXAMINER.SECURITY OPERATIONS CENTER ANALYST Work Phone: [facility] 04-27-2022 10:44-0500 SaO2% (BldA) [Mass fraction] 95 % [place] Du CATTLE EXAMINER.SECURITY OPERATIONS CENTER ANALYST Work Phone: [facility] 04-27-2022 10:44-0500 Systolic blood pressure 124 mm[Hg] [place] Du CATTLE EXAMINER.SECURITY OPERATIONS CENTER ANALYST Work Phone: [facility] Encounters Encounter Date Encounter Type Care Provider Facility Start: 02-27-2024 End: 02-29-2024 Telephone encounter Elvi Hudson APRN.SECUR[employer] OPERATIONS C[employer] ANALYST Work Phone: Neurology Comment on above: Results; Patient Upd ate Start: 02-26-2024 End: 02-26-2024 Patient encounter procedure Elvi Hudson APRN.SECUR[employer] OPERATIONS C[employer] ANALYST Work Phone: Neurology Comment on above: Central sleep apnea (Primary Dx) Start: 02-26-2024 End: 02-26-2024 ambulatory ELVI PRANAV Facility:[facility] Start: 11-07-2023 Telephone encounter Neurology Provid er Neurology Comment on above: Appointment Start: 04-28-2022 Telephone encounter Kamila Lynne APRN.CNP Work Phone: [facility] Comment on above: Results Start: 04-27-2022 End: 04-27-2022 Patient encounter procedure [place] LIZETT Work Phone: [facility] Comment on above: URI, acute (Primary Dx) Plan of Treatment Date Care Activity Detail Author Start: 07-03-2033 Urine microalbumin profile DTaP,Tdap,Td Vaccine (3 - Td or Tdap) [facility] Start: 05-09-2027 Pneumococcal Vaccine : 65+ (3 of 3 - PPSV23 or PCV20) Pneumococcal Vaccine: 65+ (3 of 3 - PPSV23 or PCV20) [facility] Start: 07-17-2026 Screening for malign ant neoplasm of colon [facility] Start: 02-28-2025 End: 02-28-2025 Patient encounter procedure 02/28/2025 9:00 AM EDT Office Visit Neurology [address] [place] [address] Elvi Hudson APRN.SECUR[employer] OPERATIONS C[employer] ANALYST [address] [place] [address] 1 year follow up Neurology Comment on above: 1 year follow up Start: 02-26-2024 End: 02-26-2024 Patient encounter procedure 02/26/2024 9:00 AM EDT Office Visit Neurology [address] [place] [address] Elvi Hudson APRN.SECURITY OPERATIONS CENTER ANALYST [address] [place] [address] Referral [place] [facility], [facility] [employer]. Neurology Comment on above: Referral [place] [facility], [facility] [employer]. Start: 02-11-2024 Covid-19 Vaccine ( season) Covid-19 Vaccine ( season) [facility] Start: 02-11-2024 Influenza vaccination [facility] Start: 11-28-2023 Advance Directive Discussion Advance Directive Discussion [facility] Start: 08-28-2023 Shingrix Vaccine (2 of 2) Shingrix Vaccine (2 of 2) [facility] Start: 06-12-2023 Behavioral Health Screening Behavioral Health Screening [facility] Start: 06-12-2023 Urine microalbumin profile DTaP,Tdap,Td Vaccine (2 - Td or Tdap) [facility] Start: 02-10-2023 Covid-19 Vaccine () Covid-19 Vaccine () [facility] Start: 02-10-2022 Influenza vaccination INFLUENZA (#1) [facility] Start: 06-12-2021 DEPRESSION ASSESSMENT DEPRESSION ASS ESSMENT [facility] Start: 2018 RSV Vaccine (1 - 1-d ose 60+ series) RSV Vaccine (1 - 1-dose 60+ series) [facility] Start: 2013 PROSTATE CANCER SCREENING DISCUSSION PROSTATE CANCER SCREENING DISCUSSION [facility] Start: 2013 Prostate specific antigen measurement Prostate Cancer Screening Discussion [facility] Start: 2008 SHINGRIX VACCINE (1 of 2) SHINGRIX VACCINE (1 of 2) [facility] Start: 11-28-2003 COLOGUARD (FIT-DNA) COLOGUARD (FIT-D NA) [facility] Start: 11-28-2003 Colonoscopy COLONOSCOPY [facility] Start: 11-28-2003 COLORECTAL CANCER SCREENING COLORECTAL CANCER SCREENING [facility] Start: 11-28-[address] COLONOGRAPHY [facility] Start: 11-28-2003 DIABETES SCREEN DIABETES SCREEN [facility] Start: 11-28-2003 Diabetes Screening Diabetes Screenin g [facility] Start: 11-28-2003 FECAL OCCULT BLOOD FECAL OCCULT BLOO D [facility] Start: 11-28-2003 Screening for malign ant neoplasm of colon [facility] Start: 11-28-2003 SIGMOIDOSCOPY SIGMOIDOSCOPY [facility] Start: 1993 Lipid panel Lipid Screening [facility] Start: 1993 LIPID SCREEN LIPID SCREEN [facility] Start: 1977 Urine microalbumin profile DTAP,TDAP,TD (1 - Tdap) [facility] Start: 1976 Annual PCP Team Supervisor Pleating vj Disease Visit Annual PCP Team Chronic Disease Visit [facility] Start: 1976 Anxiety Screening Anxiety Screening [facility] Start: 1976 BP Controlled (<130/80) BP Controlle d (<130/80) [facility] Start: 1976 Depression Screening Depression Scre ening [facility] Start: 1976 Hepatitis B surface antibody level LDL Cholesterol [facility] Start: 1976 HEPATITIS C SCREENING HEPATITIS C SC [facility] Start: 1976 Hepatitis C screening Hepatitis C [facility] Start: 1976 HIV SCREENING HIV SCREENING [facility] Start: 1976 HIV screening HIV Screening [facility] Start: 1968 Diabetic foot examination Diabetic Foot Exam [facility] Start: 1968 Glaucoma screening Dilated Retinal E xam [facility] Start: 1968 Hepatitis B screening Urine Albumin:Creatinine Ratio [facility] Start: 11-28-1963 Hemoglobin A1c measurement HbA1C [facility] Start: 1958 Abdominal aortic aneurysm screening Abdominal Aortic Aneurysm Screening [facility] Influenza virus A an d B RNA and SARS-CoV-2 (COVID-19) N gene panel - Respiratory specimen by REMA with probe detection COVID WITH FLUA+B, ROUTINE Microbiology Routine URI, acute 04/27/2022 11:21 AM EST [facility] Work Phone: Immunizations Immunization Date Immunization Notes Care Provider Buffy viera 04-03-2023 influenza virus vacc ine, unspecified formulation Elvi Hudson APRN.SECUR[employer] OPER[employer] C[employer] ANALYST Work Phone: [facility] 05-19-2021 influenza virus vacc ine, unspecified formulation Neurology Provider [facility] Payers Date Payer Category Payer Private Health Insurance [facility] [employer] CHO[employer] PLUS [id number] 2022-Present [phone] [address] [address] [place] [address] O [id number] 2022 Unknown [id number] Social History Date Type Detail Facility Start: 06-10-2014 Tobacco smoking stat us [facility] Ex-smoker [facility] History of tobacco use Current smoker [facility] Start: 06-10-2014 Tobacco use and exposure User of smokeless tobacco [facility] History of tobacco use Snuff User [facility] Start: 04-27-2022 End: 02-26-2024 Alcohol intake Not Asked [facility] Start: 1960 Sex Assigned At Not on file [facility] Start: 04-17-2022 End: 04-27-2022 Exposure to SARS-CoV-2 (event) Not sure [facility] Work Phone: Start: 04-27-2022 End: 02-26-2024 History of Social function [facility] Start: 04-27-2022 End: 02-26-2024 Tobacco use panel [facility] National Score (1-100), lower number is lower risk Not on file [facility] Clinical Notes 04-27-2022 to 02-28-2024 Telephone Encounter - Elvi Hudson APRN.CNP - 02/28/2024 5:31 PM EDTTelephone Encounter - Elvi Hudson APRN.CNP - 02/28/2024 5:31 PM EDTThorElvi patel APRN.CNP - 02/26/2024 9:00 AM EDT Note Date & Type Note Facility 02-28-2024 Telephone encounter Note I spoke to pt, discussed looks like both obstructive>central. Continue with ASV. Elvi Hudson APRN.CNP [facility] 02-28-2024 Miscellaneous Notes I spoke to pt, discussed looks like both obstructive>central. Continue with ASV. Elvi Hudson APRN.CNP ADRIÁN on that I was calling in follow up re his sleep apnea after I discussed his case with Dr Elliott, recommended he call [phone] ask for Sleep nurse. When is best time for me to call him? Elvi Hudson APRN.CNP documented in this encounter [facility] 02-27-2024 Telephone encounter Note LM on VM that I was calling in follow up re his sleep apnea after I discussed his case with Dr Elliott, recommended he call [phone] ask for Sleep nurse. When is best time for me to call him? Elvi Hudson APRN.[facility] ANALYST [facility] 02-26-2024 History of Presen t illness Narrative Images from the original note were not included. [facility] New Patient Evaluation PATIENT NAME: Carla Olivarez DATE OF SERVICE: February 26, 2024 CONSULTING PROVIDER: No referring provider defined for this encounter. REASON FOR VISIT: CSA HPI: Carla Olivarez is a 63 year old male. Sleep-related history: CSA on ASV, referred by [facility] [employer]. As soon as this device is paid off he wants to change to a different DME ([facility]). He was diagnosed in 01/2023. Work up was done because he c/o being tired. He is now getting used to wearing PAP. Review of his download shows he is using it more, has more nights that are >4 hrs. His AHI is normalized. Snoring is abolished with PAP. No hx heart failure No stroke or other brain injury No opioids SLEEP-WAKE SCHEDULE Bedtime: 9-10 PM. He has a hard time falling asleep. Time to fall asleep: varies, can't shut mind off Wake time: 6-8 AM, without an alarm. After falling asleep: he wakes up 3-4 time(s) per night, and does not know the reason for waking up. He has been this way his whole life. Some nocturia. Dry mouth so he drinks water. On weekends, he maintains the same sleep schedule. Average total sleep time (in a 24 hour period): 7 hours. SLEEP-RELATED DETAILS Preferred sleep position: side or back Breathing disturbances and other behaviors during sleep: snoring. GERD or aspiration: No PPI is effective Waking up with heart pounding or racing: No Anxiety or rumination: Yes can't shut mind off some nights when he gets into bed He does not report having an urge to move the legs in the evening (when resting) that is accompanied or caused by uncomfortable and/or unpleasant sensations in the legs. He has not been told that he has leg kicking during sleep. He denies any history of parasomnias. Daytime sleepiness is not a problem. 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 He does not have difficulty with memory or concentration. He denies falling asleep or dozing off when driving. He does not take naps. He does drink 2 caffeinated beverages per day. There has not been a recent change in weight. Patient Questionnaires Sleep Scores PAST TREATMENTS: ASV PRIOR SLEEP STUDIES: A Polysomnogram performed on 01/19/23 revealed an AHI of 28--central sleep apnea. Recommended titration with ASV if ER>45%. History reviewed. No pertinent past medical history. History reviewed. No pertinent surgical history. ACTIVE PROBLEM LIST Type 2 Diabetes Mellitus Without Complication (Hcc) Benign Prostatic Hyperplasia With Nocturia Primary Hypertension Hypercholesterolemia Central Sleep Apnea Allergies As of Date: 02/26/2024 (No Known Allergies) Fully Assessed 02/26/2024 CURRENT MEDICATIONS: rosuvastatin (CRESTOR) 20 mg tablet Take 20 mg by mouth once daily. dulaglutide (TRULICITY) 1.5 mg/0.5 mL pen injector Inject 1.5 mg subcutaneously one time a week. vitamin b complex tab Take 1 tablet by mouth once daily. aspirin 81 mg chewable tablet Take 81 mg by mouth once daily. TADALAFIL ORAL Take by mouth. FARXIGA 5 mg tablet Take 5 mg by mouth once daily. escitalopram oxalate (LEXAPRO) 20 mg tablet Take 1 tablet by mouth once daily. hydrOXYzine HCl (ATARAX) 25 mg tablet Take 1 tablet by mouth as needed. metFORMIN ER (GLUCOPHAGE XR) 500 mg 24 hr tablet Take 2 tablets by mouth once daily. cholecalciferol (VITAMIN D3) 1,000 unit tab tablet Take by mouth twice daily. levothyroxine (SYNTHROID) 125 mcg tablet Take 1 tablet by mouth once daily. probenecid 500 mg tablet Take 1 tablet by mouth twice daily. tamsulosin (FLOMAX) 0.4 mg Take 1 capsule by mouth once daily. Omeprazole Magnesium 20 mg tablet Take 1 tablet by mouth once daily. atenolol (TENORMIN) 50 mg tablet Take 0.5 tablets by mouth once daily. Review of Systems Constitutional: Negative for recent unintentional weight change. Cardiovascular: Negative for palpitations. Gastrointestinal: Negative for heartburn. Genitourinary: Positive for nocturia. Neurological: Negative for headaches and memory loss. SOCIAL HISTORY: Social History Tobacco Use Smoking status: Former Smokeless tobacco: Current Types: Snuff FAMILY HISTORY: History reviewed. No pertinent family history. There is no family history of sleep disorders. PHYSICAL EXAMINATION: Vital Signs: BP 127/87 Pulse 74 Resp 16 Wt 110.1 kg (242 lb 11.6 oz) SpO2 100% PHYSICAL EXAM: General appearance: pleasant, NAD Mental status: alert and oriented, able to provide own history Constitutional: WNL Skin: No visible rashes on exposed skin Neuro: No focal deficits observed, no tremors IMPRESSION/PLAN: G47.31 Central sleep apnea (primary encounter diagnosis) Carla Olivarez is a 63 year old male with CSA, etiology unknown, he has no reason for central sleep apnea. I reviewed his case with Dr Elliott. Reviewed sleep study data, central events appear to be at sleep-wake transitions, estimated GREGORY 9, so may be more DARINEL than CSA. He was never tried on CPAP or BiPAP. No contraindications to ASV, EF>45% checked before his ASV titration. So will keep him on ASV. He is tolerating it much better over time. We discussed CSA and DARINEL Pt can let me know when he wants to switch to [employer] - Continue ASV at EPAP 7, PS 3-18 cmH2O. - Remember to clean your mask and equipment regularly, as directed. - You should be eligible for new supplies approximately every 3-6 months, depending on your insurance coverage. Contact your [employer] (DME) company for new supplies as needed. - Follow up in 12 months with AD or sooner if needed Elvi Hudson APRN.[facility]PER[facility] ANALYST I spent a total of 48 minutes on the date of the service which included preparing to see the patient, [id number] patient care, completing clinical documentation, obtaining and/or reviewing separately obtained history, and counseling and educating the patient/family/caregiver. documented in this encounter [facility] 02-26-2024 Note HNO ID: [id number] Author: ELVI HUDSON APRN.RANDOLPH Service: ? Author Type: Nurse Practitioner Type: Progress Notes Filed: 02/26/2024 18:16 Note Text: [facility] New Patient Evaluation PATIENT NAME: Carla Olivarez DATE OF SERVICE: February 26, 2024 CONSULTING PROVIDER: No referring provider defined for this encounter. REASON FOR VISIT: CSA HPI: Carla Olivarez is a 63 year old male. Sleep-related history: CSA on ASV, referred by Kristen Espinoza. D[facility] [employer]. As soon as this device is paid off he wants to change to a different DME ([facility]). He was diagnosed in 01/2023. Work up was done because he c/o being tired. He is now getting used to wearing PAP. Review of his download shows he is using it more, has more nights that are >4 hrs. His AHI is normalized. Snoring is abolished with PAP. No hx heart failure No stroke or other brain injury No opioids SLEEP-WAKE SCHEDULE Bedtime: 9-10 PM. He has a hard time falling asleep. Time to fall asleep: varies, can't shut mind off Wake time: 6-8 AM, without an alarm. After falling asleep: he wakes up 3-4 time(s) per night, and does not know the reason for waking up. He has been this way his whole life. Some nocturia. Dry mouth so he drinks water. On weekends, he maintains the same sleep schedule. Average total sleep time (in a 24 hour period): 7 hours. SLEEP-RELATED DETAILS Preferred sleep position: side or back Breathing disturbances and other behaviors during sleep: snoring. GERD or aspiration: No PPI is effective Waking up with heart pounding or racing: No Anxiety or rumination: Yes can't shut mind off some nights when he gets into bed He does not report having an urge to move the legs in the evening (when resting) that is accompanied or caused by uncomfortable and/or unpleasant sensations in the legs. He has not been told that he has leg kicking during sleep. He denies any history of parasomnias. Daytime sleepiness is not a problem. 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 He does not have difficulty with memory or concentration. He denies falling asleep or dozing off when driving. He does not take naps. He does drink 2 caffeinated beverages per day. There has not been a recent change in weight. Patient Questionnaires Sleep Scores PAST TREATMENTS: ASV PRIOR SLEEP STUDIES: A Polysomnogram performed on 01/19/23 revealed an AHI of 28--central sleep apnea. Recommended titration with ASV if ER>45%. History reviewed. No pertinent past medical history. History reviewed. No pertinent surgical history. ACTIVE PROBLEM LIST Type 2 Diabetes Mellitus Without Complication (Hcc) Benign Prostatic Hyperplasia With Nocturia Primary Hypertension Hypercholesterolemia Central Sleep Apnea Allergies As of Date: 02/26/2024 (No Known Allergies) Fully Assessed 02/26/2024 CURRENT MEDICATIONS: rosuvastatin (CRESTOR) 20 mg tablet Take 20 mg by mouth once daily. dulaglutide (TRULICITY) 1.5 mg/0.5 mL pen injector Inject 1.5 mg subcutaneously one time a week. vitamin b complex tab Take 1 tablet by mouth once daily. aspirin 81 mg chewable tablet Take 81 mg by mouth once daily. TADALAFIL ORAL Take by mouth. FARXIGA 5 mg tablet Take 5 mg by mouth once daily. escitalopram oxalate (LEXAPRO) 20 mg tablet Take 1 tablet by mouth once daily. hydrOXYzine HCl (ATARAX) 25 mg tablet Take 1 tablet by mouth as needed. metFORMIN ER (GLUCOPHAGE XR) 500 mg 24 hr tablet Take 2 tablets by mouth once daily. cholecalciferol (VITAMIN D3) 1,000 unit tab tablet Take by mouth twice daily. levothyroxine (SYNTHROID) 125 mcg tablet Take 1 tablet by mouth once daily. probenecid 500 mg tablet Take 1 tablet by mouth twice daily. tamsulosin (FLOMAX) 0.4 mg Take 1 capsule by mouth once daily. Omeprazole Magnesium 20 mg tablet Take 1 tablet by mouth once daily. atenolol (TENORMIN) 50 mg tablet Take 0.5 tablets by mouth once daily. Review of Systems Constitutional: Negative for recent unintentional weight change. Cardiovascular: Negative for palpitations. Gastrointestinal: Negative for heartburn. Genitourinary: Positive for nocturia. Neurological: Negative for headaches and memory loss. SOCIAL HISTORY: Social History Tobacco Use Smoking status: Former Smokeless tobacco: Current Types: Snuff FAMILY HISTORY: History reviewed. No pertinent family history. There is no family history of sleep disorders. PHYSICAL EXAMINATION: Vital Signs: BP 127/87 Pulse 74 Resp 16 Wt 110.1 kg (242 lb 11.6 oz) SpO2 100% PHYSICAL EXAM: General appearance: pleasant, NAD Mental status: alert and oriented, able to provide own history Constitutional: WNL Skin: No visible rashes on exposed skin Neuro: No focal deficits observed, no tremors IMPRESSION/PLAN: G47.31 Central s (more content not included)... [facility] 11-07-2023 Telephone encounter Note Phone call placed patient reported current DME [employer], new CPAP machine in 2023 current mask issues appointment scheduled with Júnior Hudson 02/26/2024. Tricia Arcos LPN [facility] 11-07-2023 Miscellaneous Notes Phone call placed patient reported current DME [employer], new CPAP machine in 2023 current mask issues appointment scheduled with Júnior Hudson 02/26/2024. Tricia Arcos LPN documented in this encounter [facility] 04-28-2022 Miscellaneous Notes Patient notified of results, verbalized understanding of instructions given. Yadira Meehan MA Negativefor COVID positive for flu a negative for flu B. Just symptom management with [id number] medications if symptoms worsen please follow-up with your primary care physician. documented in this encounter [facility] 04-27-2022 History of Presen t illness Narrative Subjective HPI HPI Carla Olivarez is a 61 year old male [...] Chapincito Du APRN.RANDOLPH documented in this encounter [facility] 04-27-2022 Instructions Chapincito Du APRN.CNP - 04/27/2022 11:20 AM EST How to [...] concerning to you. documented in this encounter [facility] Evaluation note Diagnosis URI, acute- Primary Acute upper respiratory infections of unspecified site [facility] Diagnosis DARINEL (obstructive sleep apnea)- Primary Obstructive sleep apnea (adult) (pediatric) [facility] Diagnosis Central sleep apnea- Primary Unspecified sleep apnea documented in this encounter [facility] Summary Purpose Family History No Family History [...] or prosecute any alcohol or drug abuse patient.[facility] the event this information is protected by the Federal Confidentiality of Alcohol and Drug Abuse Patient Records regulations: The Federal rules restrict any use of the information to criminally investigate or prosecute any alcohol or drug abuse patient.[facility] Hospital[facility] the event this information is protected by the Federal Confidentiality of Alcohol and Drug Abuse Patient Records regulations: The Federal rules restrict any use of the information to criminally investigate or prosecute any alcohol or drug abuse patient.[facility] Hospital[facility] the event this information is protected by the Federal Confidentiality of Alcohol and Drug Abuse Patient Records regulations: The Federal rules restrict any use of the information to criminally investigate or prosecute any alcohol or drug abuse patient.[facility] the event this information is protected by the Federal Confidentiality of Alcohol and Drug Abuse Patient Records regulations: The Federal rules restrict any use of the information to criminally investigate or prosecute any alcohol or drug abuse patient.[facility] Reason for Visit (unrecogniz ed section and content) Reason Comments Cough Cough, fever, FU, [place] dyaches and ST x 5 days Reason Comments Results Reason Comments Appointment Reason Comments New Patient Evaluation Reason Comments Results Patient Update Care Teams (unrecognized sec tion and content) Founder And President Relationship Specialty Start Date End Date Renan Mason MD [address] [place], [place] [id number] PCP - General Family Medicine 10/09/15 Founder And President Relationship Specialty Start Date End Date Renan Mason MD [address] [place] [address] [id number] PCP - General Family Medicine 10/09/15 Founder And President Relationship Specialty Start Date End Date Renan Mason MD [address] [place] [address] [id number] PCP - General Family Medicine 10/09/15 Founder And President Relationship Specialty Start Date End Date Renan Mason MD [address] [place] [address] [id number] PCP - General Family Medicine 10/09/15 Founder And President Relationship Specialty Start Date End Date Renan Mason MD [address] [place] [address] [phone] PCP - General Family Medicine 10/09/15 (unrecognized sect ion and content) No Status Records Found INFORMATION SOURCE (unrecogn ized section and content) DATE CREATED AUTHOR 03/02/2024 [facility] FOR RECORDS PERTAINING TO PATIENTS WHO ARE [...] BE BASED ON THE PRIMARY CLINICAL RECORDS. [employer] [facility]. provides no warranty or guarantee of the accuracy or completeness of information in this document.
== END | disposition home or self-care (01) ==
LOC: MFPLAB 15:58
PROVIDERS: PCP Family Medicine; Referring Provider Family Medicine; Visit Provider Family Medicine
DX: E11.9 Type 2 diabetes mellitus without complications (principal); R79.89 Other specified abnormal findings of blood chemistry; Z12.5 Encounter for screening for malignant neoplasm of prostate
CPT/HCPCS: 36415; 80053; 80061; 82306; 82607; 84153; 84403; 84443; G0103

== ENCOUNTER 2024-10-07 08:31 | Outpatient (CLI) | payer MEDICARE, SELFPAY ==
[2024-10-07 13:34] LABS: Erythrocyte Sedimentation Rate 3 mm/hr (0-20)
[2024-10-07 13:36] LABS: Absolute Lymphocyte Count 2.06 X10^3/uL (0.83-4.51); Absolute Neutrophil Count 4.6 X10^3/uL (2.0-7.7); Basophil# 0.04 X10^3/uL; Basophil% 0.5 % (0-1); Eosinophil# 0.22 X10^3/uL; Eosinophils% 2.9 % (0-5); Hematocrit 47.9 % (40-54); Hemoglobin 15.8 g/dL (13.0-16.5); Lymphocyte # 2.06 X10^3/ul (0.83-4.51); Lymphocyte % 26.8 % (19-41); Mean Corpuscular Hgb 27.9 pg (27.0-32.0); Mean Corpuscular Volume 84.5 fL (80-94); Mean Platelet Vol. 9.8 fl (6.2-12.0); Monocyte# 0.75 X10^3/uL; Monocyte% 9.7 % (0-10); NRBC Flagged by Analyzer 0 % (0-5); Neutrophil # 4.58 X10^3/uL (2.7-7.7); Neutrophil % 59.5 % (47-70); Platelet Count 207 K/mm3 (150-450); RBC Distribution Width CV 14.1 % (11.6-14.6); RBC Distribution Width SD 43.6 fl (35.1-43.9); Red Blood Count 5.67 M/mm3 (4.6-6.2); White Blood Count 7.7 K/mm3 (4.4-11.0)
[2024-10-07 15:08] LABS: ALB/GLOB Ratio 1.8 RATIO (0.9-2.4); AST(SGOT) 21 U/L (<=37); Alanine Aminotransfer ALT/SGPT 26 U/L (<=46); Albumin, Serum 4.5 g/dL (3.4-4.8); Alkaline Phosphatase 74 U/L (40-129); Anion Gap 13 (5-15); BUN 24 mg/dL (4-19); BUN/Creat Ratio 22.7 RATIO (10-20); Calcium,Total 9.8 mg/dL (7.6-11.0); Carbon Dioxide 23.5 mmol/L (21.0-32.0); Chloride 103 mmol/L (98-108); Creatinine, Serum 1.06 mg/dL (0.70-1.20); EST Glomerular Filtration Rate 78 (>60); Globulin 2.5 g/dL (2.2-4.2); Glucose 141 mg/dL (70-99); Potassium 4.1 mmol/L (3.3-5.1); Sodium Level 139 mmol/L (133-145); Thyroid Stim Hormone (TSH) 0.357 uIU/mL (0.300-4.200); Total Bilirubin 0.44 mg/dL (0.00-1.30); Vitamin D,25 Hydroxy 50.1 ng/mL (30-100)
== END 2024-10-07 23:59 | disposition home or self-care (01) ==
PROVIDERS: PCP Family Medicine; Referring Provider Family Medicine; Visit Provider Family Medicine
DX: R14.0 Abdominal distension (gaseous) (principal); E03.9 Hypothyroidism, unspecified
CPT/HCPCS: 36415; 80053; 82306; 84403; 84443; 85025; 85652

== ENCOUNTER 2024-11-21 09:13 | Outpatient (CLI) | payer MEDICARE, SELFPAY ==
--- OUTSIDE RECORDS SUMMARY | 2024-11-21 18:43 | XMS RPT_ITS | CCD ---
Author Organization [facility] Care Team Providers Care Casting Room Helper Name Role Phone Renan Mason MD Primary Care Provider Dr. Navjot Mason Primary Care Provider Dr. Navjot Mason Referring Provider ELICEO Blanco Attending Provider Dr. Navjot Mason Primary Care Provider Dr. Navjot Mason Other Provider Dr. Mikey Larsen Attending Provider Dr. Navjot Mason Referring Provider Dr. Devan Ordoñez Attending Provider [phone] Navjot Mason Primary Care Provider Dr. Navjot Mason Referring Provider Dr. Devan Ordoñez Attending Provider [phone] Navjot Mason Primary Care Provider Dr. Navjot Mason Referring Provider Stephania TIWARI, [employer]APER AND PRESSER-C Sunita Attending Provider Dr. Alfa Wong Attending Provider ELICEO Serrano Attending Provider [phone] Dr. Navjot Mason Primary Care Provider Dr. Navjot Mason Referring Provider Stephania SHAPER AND PRESSER, SHAPER AND PRESSER-C Sunita Attending Provider [phone] Dr. Alfa Wong Attending Provider ELICEO Serrano Attending Provider Dr. Navjot Mason Primary Care Provider Dr. Navjot Mason Referring Provider Stephania SH[employer]ER AND PRESSER, SH[employer]ER AND PRESSER-C Sunita Attending Provider [phone] Dr. Renan Mason Primary Care Provider Dr. Renan Mason Referring Provider Stephania [employer] PRESSER, SHAPER AND PRESSER-C Sunita Attending Provider Renan Mason MD Primary Care Provider ELVI HUDSON Attending Unavailable RENAN MASON Primary Care Unavailabl e Sunita Cat Attending Unavailable Renan Mason Primary Care Unavailable Renan Mason Referring Unavailable Renan Mason Attending Unavailable Renan Mason Primary Care Unavailable Renan Mason Referring Unavailable Renan Mason Primary Care Unavailable Renan Mason Referring Unavailable eRnan Mason Attending Unavailable Augusto Serrano Attending Unavailable Renan Mason Primary Care Unavailable Renan Mason Referring Unavailable Medications Current Medications Medication Drug Class(es) Dates Sig (Normalized) Sig (Original) aspirin 81 mg chewable tablet (2 sources) Platelet Aggregation Inhibitor, Nonsteroidal Anti-inflammatory Drug take 1 tablet by mouth once daily aspirin 81 mg chewable tablet Take 81 mg by mouth once daily. Active atenolol 25 mg oral tablet (16 sources) beta-Adrenergic Cheryl Start: 03-16-2016 take 25 mg by mouth once daily Atenolol Active 25 MG PO DAILY March 16, 2016 12:00am take 0.5 tablet by mouth once da asa atenolol (TENORMIN) 50 mg tablet Take 0.5 tablets by mouth once daily. Active Comment on above: Take 0.5 tablets by mouth once daily. cholecalciferol 0.05 mg oral capsule (16 sources) Vitamin D Start: 03-16-20 16 take 1 capsule by mouth once daily Cholecalciferol (Vitamin D3) (D3-2000) 2,000 UNIT capsule Active 2000 UNIT PO DAILY March 16, 2016 12:00am cholecalciferol (VITAMIN D3) 1,000 unit tab tablet Take by mouth twice daily. Active Comment on above: Take by mouth twice daily. dapagliflozin 10 mg oral tablet (12 sources) Sodium-Glucose Cotransporter 2 Inhibitor Start: 09-20-19 take 1 tablet by mouth once daily Dapagliflozin Propanediol (Farxiga) 10 mg tablet Active 10 MG PO DAILY September 19, 2022 12:00am Start: 03-30-2022 take 1 tablet by larissa th once daily FARXIGA 5 mg tablet Take 5 mg by mouth once daily. 03/30/2022 Active Comment on above: Take 5 mg by mouth o nce daily. escitalopram 20 mg oral tablet (5 sources) Serotonin Reuptake Inhibitor Start: 02-29-20 take 1 tablet by mouth once daily escitalopram oxalate (LEXAPRO) 20 mg tablet Take 1 tablet by mouth once daily. 02/28/2019 Active Comment on above: Take 1 tablet by larissa once daily. hydrOXYzine hydrochloride 25 mg oral tablet (7 sources) Antihistamine Start: 03-29-20 hydrOXYzine HCl (ATARAX) 25 mg tablet Take 1 tablet by mouth as needed. 03/29/2019 Active Comment on above: Take 1 tablet by larissa as needed. levothyroxine sodium 0.125 mg oral tablet (18 sources) l-Thyroxine Start: 07-17-19 take 125 ug by mouth once daily Levothyroxine Active 125 MCG PO DAILY July 17, 2023 1:00am Start: 03-16-2016 End: 07-17-2023 take 25 ug by mouth once daily Levothyroxine Discontin ued 25 MCG PO DAILY March 16, 2016 12:00am July 17, 2023 10:22am Comment on above: Take 1 tablet by larissa th once daily. 24 hr metFORMIN hydrochloride 500 mg extended release oral tablet (18 sources) Biguanide Start: take 2 tablets by mouth once daily metFORMIN ER (GLUCOPHAGE XR) 500 mg 24 hr tablet Take 2 tablets by mouth once daily. 03/29/2019 Active Start: 08-01-2018 End: 07-17-2023 take 500 mg by mouth twice daily Metformin Discontinued 500 MG PO TWICE A DAY August 01, 2018 1:00am July 17, 2023 10:24am Comment on above: Take 2 tablets by mo [facility] once daily. omeprazole 20 mg delayed release oral capsule (16 sources) Proton Pump Inhibitor Start: 03-16-2016 take 20 mg by mouth once daily Omeprazole Active 20 MG PO DAILY March 16, 2016 12:00am take 1 tablet by mouth once annmarie y Omeprazole Magnesium 20 mg tablet Take 1 tablet by mouth once daily. Active Comment on above: Take 1 tablet by [facility] once daily. predniSONE 20 mg oral tablet (2 sources) Start: 2 End: 2 take 2 tablets by mouth once daily predniSONE (DELTASONE) 20 mg tablet Indications: URI, acute Take 2 tablets by mouth once daily for 5 days. 10 tablet 0 04/27/2022 05/02/2022 Active Comment on above: Take 2 tablets by [facility] once daily for 5 days. probenecid 500 mg oral tablet (16 sources) Start: 6 take 500 mg by mouth twice daily Probenecid Active 500 MG PO TWICE A DAY March 16, 2016 12:00am Comment on above: Take 1 tablet by [facility] twice daily. rosuvastatin calcium 40 mg oral tablet (4 sources) HMG-CoA Reductase Inhibitor Start: 4 Rosuvastatin Active 40 MG PO July 17, 2023 1:00am take 1 tablet by mouth once annmarie y rosuvastatin (CRESTOR) 20 mg tablet Take 20 mg by mouth once daily. Active tadalafil 10 mg oral tablet (9 sources) Phosphodiesterase 5 Inhibitor Start: 09-19-2022 take 1 dose by mouth every twenty-four hours Tadalafil Active 10 MG PO DAILY September 19, 2022 12:00am administer approximately 30min before sexual activity; do not use more than 1 dose per 24hrs TADALAFIL ORAL T kiki by mouth. Active tamsulosin hydrochloride 0.4 mg oral capsule (16 sources) alpha-Adrenergic Cheryl Start: 03-16-2016 take 0.4 mg by mouth once daily Tamsulosin Active 0.4 MG PO DAILY March 16, 2016 12:00am Comment on above: Take 1 capsule by [facility] once daily. Vitamin B Complex (2 sources) take 1 tablet by mouth once daily vitamin b complex tab Take 1 tablet by mouth once daily. Active vitamin b12 5 mg oral capsule (7 sources) Vitamin B12 Start: 09-19-2022 take 5000 ug by mouth once daily Cyanocobalamin (Vitamin B-12) Active 5000 MCG PO DAILY September 19, 2022 12:00am Completed/Discontinued Medications Medication Drug Class(es) Dates Sig [...] every 4 hours as needed (SOB/wheezing/coughing spasms). 0.5 ml dulaglutide 3 mg/ml auto-injector (9 sources) GLP-1 Receptor Agonist Start: 09-19-2022 End: 07-17-2023 Dulaglutide (Trulicity) 1.5 mg/0.5 mL pen injector Discontinued 1.5 MG SC EVERY WEEK September 19, 2022 12:00am July 17, 2023 10:22am linagliptin 5 mg oral tablet (4 sources) Dipeptidyl Peptidase 4 Inhibitor Start: 05-10-2019 End: 02-26-2024 take 1 tablet by mouth once daily TRADJENTA 5 mg tab Take 1 tablet by mouth once daily. 05/10/2019 02/26/2024 Discontinued Comment on above: Take 1 tablet by larissa th once daily. simvastatin 20 mg oral tablet (15 sources) HMG-CoA Reductase Inhibitor Start: 03-16-2016 End: 07-17-2023 take 20 mg by mouth at bedtime Simvastatin Discontinued 20 MG PO AT BEDTIME March 16, 2016 12:00am July 17, 2023 10:24am End: 02-26-2024 take 1 tablet by mouth once daily simvastatin (ZOCOR) 40 mg tablet Take 1 tablet by mouth once daily. 02/26/2024 Discontinued Comment on above: Take 1 tablet by larissa th once daily. Problems Active Problems Problem Classification Problem Date Documented Da te Episodic/Chronic Diabetes mellitus without complication (10 sources) Diabetes mellitus; Translations: [Type 2 diabetes mellitus without complications] Onset: 02-26-2024 09-19-2022 Chronic Disorders of lipid metabolism (2 sources) Hypercholesterolemi a; Translations: [Pure hypercholesterolemi a, unspecified] Onset: 02-26-2024 02-26-2024 Chronic Essential hypertension (18 sources) Hypertensive disorder; Translations: [Essential (primary) hypertension] Onset: 02-26-2024 09-19-2022 Chronic Hyperplasia of prostate (2 sources) Nocturia due to benign prostatic hypertrophy; Translations: [Benign prostatic hyperplasia with lower urinary tract symptoms] Onset: 02-26-2024 02-26-2024 Chronic Nonspecific chest pain (11 sources) Chest pain; Translations: [Chest pain, unspecified] 03-17-2016 Episodic Other gastrointestinal disorders (1 source) Abdominal distension (gaseous); Translations: [Abdominal distension (gaseous)] Onset: 10-28-2024 Episodic Other lower respiratory disease (7 sources) Snoring; Translations: [Snoring] 09-19-2022 Episodic Other lower respiratory disease (2 sources) Snoring; Translations: [Other respiratory abnormalities] 10-17-2022 Episodic Other lower respiratory disease (4 sources) Dyspnea; Translations: [Dyspnea, unspecified] 02-07-2023 Episodic Other lower respiratory disease (2 sources) Dyspnea, unspecified; Translations: [Other respiratory abnormalities] 02-07-2023 Episodic Other nutritional; endocrine; and metabolic disorders (6 sources) Body mass index 30+ - obesity; Translations: [Body mass index (BMI) 34.0-34.9, adult] 10-17-2022 Chronic Other nutritional; endocrine; and metabolic disorders (2 sources) Body mass index (BMI) 34.0-34.9, adult; Translations: [Body Mass Index 34.0-34.9, adult] 10-17-2022 Chronic Other nutritional; endocrine; and metabolic disorders (4 sources) Obesity; Translations: [Obesity, unspecified] 02-07-2023 Chronic Other nutritional; endocrine; and metabolic disorders (4 sources) Obesity, unspecified; Translations: [Obesity, unspecified] 02-07-2023 Chronic Other nutritional; endocrine; and metabolic disorders (1 source) Other obesity due to excess calories; Translations: [Other obesity due to excess calories] Onset: 11-03-2023 Chronic Other nutritional; endocrine; and metabolic disorders (1 source) Body mass index (BMI) 33.0-33.9, adult; Translations: [Body mass index [BMI] 33.0-33.9, adult] Onset: 11-03-2023 Chronic Other upper respiratory disease (11 sources) Respiratory tract congestion; Translations: [Nasal congestion] 06-04-2021 Episodic Other upper respiratory infections (1 source) Acute upper respiratory infection; Translations: [Acute upper respiratory infection, unspecified] Episodic Residual codes; unclassified (2 sources) Obstructive sleep apnea (adult) (pediatric); Translations: [Obstructive sleep apnea (adult)(pediatric)] 09-19-2022 Chronic Residual codes; unclassified (9 sources) Central sleep apnea syndrome; Translations: [Primary central sleep apnea] Onset: 02-26-2024 10-17-2022 Chronic Residual codes; unclassified (8 sources) Primary central sleep apnea; Translations: [Unspecified sleep apnea] Onset: 11-03-2023 10-17-2022 Chronic Syncope (11 sources) Syncope and collapse; Translations: [Syncope and collapse] 08-02-2018 Episodic Viral infection (11 sources) Disease caused by 2019-nCoV; Translations: [COVID-19] 06-04-2021 Episodic Past or Other Problems Problem Classification Problem Date Documented Da te Episodic/Chronic Residual codes; unclassified (4 sources) Obstructive sleep apnea syndrome; Translations: [Obstructive sleep apnea (adult) (pediatric)] Onset: 11-07-2023 Resolved: 02-26-2024 11-07-2023 Chronic Results Test Name Value Interpretation Reference Range Facility CBC W/Diff, Automatedon 09-11 Absolute Lymph 2.06 X10 3/uL Normal 0.83-4.51 [facility] Comment on above: Order Comment: Order Date: 04/08/24 Order Info: 2132-9 - B12 Order Info: [id number] - VITD25 Order Info: 2986-8 - MARGE Performed By: #### L 500.4100, L506.1000, L500.4050, L509.3000, L503.0105, L501.9520, L501.9910 #### [facility] [address] [place], [address] Absolute Neut 4.6 X10 3/uL Normal 2.0-7.7 [facility] Comment on above: Order Comment: Order Date: 04/08/24 Order Info: 2132-02 - B12 Order Info: [id number] - VITD25 Order Info: 2986-8 - MARGE Performed By: #### L 500.4100, L506.1000, L500.4050, L509.3000, L503.0105, L501.9520, L501.9910 #### [facility] [address] [place], [address] Basophils/100 WBC (Bld) 0.5 % Normal 0-1 [facility] Comment on above: Order Comment: Order Date: 04/08/24 Order Info: 2132-02 B12 Order Info: [id number] - VITD25 Order Info: 2986-8 - MARGE Performed By: #### L 500.4100, L506.1000, L500.4050, L509.3000, L503.0105, L501.9520, L501.9910 #### [facility] [address] [place], [address] Eosinophils/100 WBC (Bld) 2.9 % Normal 0-5 [facility] Comment on above: Order Comment: Order Date: 04/08/24 Order Info: 2132-02 Order Info: [id number] - VITD25 Order Info: 2986-8 - MARGE Performed By: #### L 500.4100, L506.1000, L500.4050, L509.3000, L503.0105, L501.9520, L501.9910 #### [facility] [address] [place], [address] Erythrocyte distribution width (RBC) [Ratio] 14.1 % Normal 11.6-14.6 [facility] Comment on above: Order Comment: Order Date: 04/08/24 Order Info: 2132-02 B12 Order Info: [id number] - VITD25 Order Info: 2986-8 - MARGE Performed By: #### L 500.4100, L506.1000, L500.4050, L509.3000, L503.0105, L501.9520, L501.9910 #### [facility] [address] [place], [address] Hematocrit (Bld) [Volume fraction] 47.9 % Normal 40-54 [facility] Comment on above: Order Comment: Order Date: 04/08/24 Order Info: 2132-02 - B12 Order Info: [id number] - VITD25 Order Info: 2986-01 - MARGE Performed By: #### L 500.4100, L506.1000, L500.4050, L509.3000, L503.0105, L501.9520, L501.9910 #### [facility] [address] [place] [place], [address] Hemoglobin (Bld) [Mass/Vol] 15.8 g/dL Normal 13.0-16.5 [facility] Comment on above: Order Comment: Order Date: 04/08/24 Order Info: 2132-02 B12 Order Info: 91675-1 - VITD25 Order Info: 2986-01 - MARGE Performed By: #### L 500.4100, L506.1000, L500.4050, L509.3000, L503.0105, L501.9520, L501.9910 #### [facility] [address] [place] [place], [address] IG% 0.600 Normal 0.0-0.9 [facility] Comment on above: Order Comment: Order Date: 04/08/24 Order Info: 2132-02 B12 Order Info: [id number] - VITD25 Order Info: 2986-01 - MARGE Result Comment: IG% - Immature Granulocytes (promyelocytes, myelocytes and metamyelocytes) > 1% indicates that a LEFT SHIFT is Present. Performed By: #### L 500.4100, L506.1000, L500.4050, L509.3000, L503.0105, L501.9520, L501.9910 #### [facility] [address] [place], [address] Lymphocytes/100 WBC (Bld) 26.8 % Normal 19-41 [facility] Comment on above: Order Comment: Order Date: 04/08/24 Order Info: 2132-02 - B12 Order Info: 41907-7 - VITD25 Order Info: 2986-8 - MARGE Performed By: #### L 500.4100, L506.1000, L500.4050, L509.3000, L503.0105, L501.9520, L501.9910 #### [facility] [address] [place], [address] MCH (RBC) [Entitic mass] 27.9 pg Normal 27.0-32.0 [facility] Comment on above: Order Comment: Order Date: 04/08/24 Order Info: 2132-02 B12 Order Info: 10312-3 - VITD25 Order Info: 2986-8 - MARGE Performed By: #### L 500.4100, L506.1000, L500.4050, L509.3000, L503.0105, L501.9520, L501.9910 #### [facility] [address] [place], [address] MCHC (RBC) [Mass/Vol] 33.0 g/dL Normal 32-36 [facility] Comment on above: Order Comment: Order Date: 04/08/24 Order Info: 2132-02 B12 Order Info: 50105-2 - VITD25 Order Info: 2986-8 - MARGE Performed By: #### L 500.4100, L506.1000, L500.4050, L509.3000, L503.0105, L501.9520, L501.9910 #### [facility] [address] [place], [address] MCV (RBC) [Entitic vol] 84.5 fL Normal 80-94 [facility] Comment on above: Order Comment: Order Date: 04/08/24 Order Info: 2132-02 Order Info: 19797-6 - VITD25 Order Info: 2986-8 - MARGE Performed By: #### L 500.4100, L506.1000, L500.4050, L509.3000, L503.0105, L501.9520, L501.9910 #### [facility] [address] [place], [address] Monocytes/100 WBC (Bld) 9.7 % Normal 0-10 [facility] Comment on above: Order Comment: Order Date: 04/08/24 Order Info: 2132-02 Order Info: 38837-7 - VITD25 Order Info: 2988 - MARGE Performed By: #### L 500.4100, L506.1000, L500.4050, L509.3000, L503.0105, L501.9520, L501.9910 #### [facility] [address] [place], [address] Neutrophils/100 WBC (Bld) 59.5 % Normal 47-70 [facility] Comment on above: Order Comment: Order Date: 04/08/24 Order Info: 2132-02 Order Info: [id number] - VITD25 Order Info: 2988 - MARGE Performed By: #### L 500.4100, L506.1000, L500.4050, L509.3000, L503.0105, L501.9520, L501.9910 #### [facility] [address] [place], [address] Nucleated RBC (Bld) [#/Vol] 0 10*3/uL Normal 0-5 [facility] Comment on above: Order Comment: Order Date: 04/08/24 Order Info: 2132-02 Order Info: [id number] - VITD25 Order Info: 2986-8 - MARGE Performed By: #### L 500.4100, L506.1000, L500.4050, L509.3000, L503.0105, L501.9520, L501.9910 #### [facility] [address] [place], [address] Platelet mean volume (Bld) [Entitic vol] 9.8 fL Normal 6.2-12.0 [facility] Comment on above: Order Comment: Order Date: 04/08/24 Order Info: 2132-02 Order Info: [id number] - VITD25 Order Info: 2986-01 - MARGE Performed By: #### L 500.4100, L506.1000, L500.4050, L509.3000, L503.0105, L501.9520, L501.9910 #### [facility] [address] [place], [address] Platelets (Bld) [#/Vol] 207 10*3/uL Normal 150-450 [facility] Comment on above: Order Comment: Order Date: 04/08/24 Order Info: 2132-02 Order Info: 31739-9 - VITD25 Order Info: 8 - MARGE Performed By: #### L 500.4100, L506.1000, L500.4050, L509.3000, L503.0105, L501.9520, L501.9910 #### [facility] [address] [place], [address] RBC (Bld) [#/Vol] 5.67 10*6/uL Normal 4.6-6.2 [facility] Comment on above: Order Comment: Order Date: 04/08/24 Order Info: 2132-02 Order Info: 99939-2 - VITD25 Order Info: 298-8 - MARGE Performed By: #### L 500.4100, L506.1000, L500.4050, L509.3000, L503.0105, L501.9520, L501.9910 #### [facility] [address] [place], [address] RDW SD 43.6 fl Normal 35.1-43.9 [facility] Comment on above: Order Comment: Order Date: 04/08/24 Order Info: 2132-02 - B12 Order Info: [id number] - VITD25 Order Info: 2986-8 - MARGE Performed By: #### L 500.4100, L506.1000, L500.4050, L509.3000, L503.0105, L501.9520, L501.9910 #### [facility] [address] [place], [address] WBC (Bld) [#/Vol] 7.7 10*3/uL Normal 4.4-11.0 [facility] Comment on above: Order Comment: Order Date: 04/08/24 Order Info: 2132-02 B12 Order Info: [id number] - VITD25 Order Info: 2986-8 - MARGE Performed By: #### L 500.4100, L506.1000, L500.4050, L509.3000, L503.0105, L501.9520, L501.9910 #### [facility] [address] [place], [address] Comprehensive Metabolic Prof ilon 10-07-2024 Albumin [Mass/Vol] 4.5 g/dL Normal 3.4-4.8 [facility] Comment on above: Order Comment: Order Date: 04/08/24 Order Info: 2132-02 B12 Order Info: 96214-2 - VITD25 Order Info: 2986-8 - MARGE Performed By: #### L 500.4100, L506.1000, L500.4050, L509.3000, L503.0105, L501.9520, L501.9910 #### [facility] [address] [place], [address] Albumin/Globulin [Mass ratio] 1.8 {ratio} Normal 0.9-2.4 [facility] Comment on above: Order Comment: Order Date: 04/08/24 Order Info: 2132-02 - B12 Order Info: [id number] - VITD25 Order Info: 298-8 - MARGE Performed By: #### L 500.4100, L506.1000, L500.4050, L509.3000, L503.0105, L501.9520, L501.9910 #### [facility] [address] [place], [address] ALK PHOS 74 U/L Normal 40-129 [facility] Comment on above: Order Comment: Order Date: 04/08/24 Order Info: 2132-02 B12 Order Info: 72289-9 - VITD25 Order Info: 8 - MARGE Performed By: #### L 500.4100, L506.1000, L500.4050, L509.3000, L503.0105, L501.9520, L501.9910 #### [facility] [address] [place], [address] ALT [Catalytic activity/Vol] 26 U/L Normal <=46 [facility] Comment on above: Order Comment: Order Date: 04/08/24 Order Info: 2132-02 Order Info: 19932-0 - VITD25 Order Info: 8 - MARGE Performed By: #### L 500.4100, L506.1000, L500.4050, L509.3000, L503.0105, L501.9520, L501.9910 #### [facility] [address] [place], [address] AST [Catalytic activity/Vol] 21 U/L Normal <=37 [facility] Comment on above: Order Comment: Order Date: 04/08/24 Order Info: 2132-02 Order Info: 13399-7 - VITD25 Order Info: 298-8 - MARGE Performed By: #### L 500.4100, L506.1000, L500.4050, L509.3000, L503.0105, L501.9520, L501.9910 #### [facility] [address] [place], [address] Bilirubin [Mass/Vol] 0.44 mg/dL Normal 0.00-1.30 [facility] Comment on above: Order Comment: Order Date: 04/08/24 Order Info: 2132-02 - B12 Order Info: [id number] - VITD25 Order Info: 298-8 - MAGRE Performed By: #### L 500.4100, L506.1000, L500.4050, L509.3000, L503.0105, L501.9520, L501.9910 #### [facility] [address] [place], [address] BUN/CRE 22.7 RATIO High 10-20 [facility] Comment on above: Order Comment: Order Date: 04/08/24 Order Info: 2132-02 - B12 Order Info: 84320-2 - VITD25 Order Info: 2986-8 - MARGE Performed By: #### L 500.4100, L506.1000, L500.4050, L509.3000, L503.0105, L501.9520, L501.9910 #### [facility] [address] [place], [address] Calcium [Mass/Vol] 9.8 mg/dL Normal 7.6-11.0 [facility] Comment on above: Order Comment: Order Date: 04/08/24 Order Info: 2132-02 B12 Order Info: 81519-0 - VITD25 Order Info: 2986-8 - MARGE Performed By: #### L 500.4100, L506.1000, L500.4050, L509.3000, L503.0105, L501.9520, L501.9910 #### [facility] [address] [place], [address] Chloride [Moles/Vol] 103 mmol/L Normal 98-108 [facility] Comment on above: Order Comment: Order Date: 04/08/24 Order Info: 2132-02 - B12 Order Info: 85713-4 - VITD25 Order Info: 2986-8 - MARGE Performed By: #### L 500.4100, L506.1000, L500.4050, L509.3000, L503.0105, L501.9520, L501.9910 #### [facility] [address] [place], [address] CO2 [Moles/Vol] 23.5 mmol/L Normal 21.0-32.0 [facility] Comment on above: Order Comment: Order Date: 04/08/24 Order Info: 2132-02 - B12 Order Info: [id number] - VITD25 Order Info: 2986-01 - MARGE Performed By: #### L 500.4100, L506.1000, L500.4050, L509.3000, L503.0105, L501.9520, L501.9910 #### [facility] [address] [place], [place], [address] Creatinine [Mass/Vol] 1.06 mg/dL Normal 0.70-1.20 [facility] Comment on above: Order Comment: Order Date: 04/08/24 Order Info: 2132-02 B12 Order Info: 93873-5 - VITD25 Order Info: 2986-01 - MARGE Performed By: #### L 500.4100, L506.1000, L500.4050, L509.3000, L503.0105, L501.9520, L501.9910 #### [facility] [address] [place], [address] GAP 13 Normal 5-15 [facility] Comment on above: Order Comment: Order Date: 04/08/24 Order Info: 2132-02 B12 Order Info: 79784-9 - VITD25 Order Info: 2986-01 - MARGE Performed By: #### L 500.4100, L506.1000, L500.4050, L509.3000, L503.0105, L501.9520, L501.9910 #### [facility] [address] [place], [address] GFR/1.73 sq M.predicted among non-blacks MDRD (S/P/Bld) [Vol rate/Area] 78 mL/min/{1.73_m2} Normal >60 [facility] Comment on above: Order Comment: Order Date: 04/08/24 Order Info: 2132-02 Order Info: 99709-8 - VITD25 Order Info: 2986-8 - MARGE Result Comment: mL/m in/1.73m2 CKD-EPI Creatinine Equation (2020) Performed By: #### L 500.4100, L506.1000, L500.4050, L509.3000, L503.0105, L501.9520, L501.9910 #### [facility] [address] [place], [address] Globulin (S) [Mass/Vol] 2.5 g/dL Normal 2.2-4.2 [facility] Comment on above: Order Comment: Order Date: 04/08/24 Order Info: 2132-02 Order Info: 56502-5 - VITD25 Order Info: 29811-17 - MARGE Performed By: #### L 500.4100, L506.1000, L500.4050, L509.3000, L503.0105, L501.9520, L501.9910 #### [facility] [address] [place], [address] Glucose [Mass/Vol] 141 mg/dL High 70-99 [facility] Comment on above: Order Comment: Order Date: 04/08/24 Order Info: 2132-02 Order Info: 07598-5 - VITD25 Order Info: 2986-8 - MARGE Performed By: #### L 500.4100, L506.1000, L500.4050, L509.3000, L503.0105, L501.9520, L501.9910 #### [facility] [address] [place], [address] Potassium [Moles/Vol] 4.1 mmol/L Normal 3.3-5.1 [facility] Comment on above: Order Comment: Order Date: 04/08/24 Order Info: 2132-02 - B12 Order Info: 66824-7 - VITD25 Order Info: 2986-8 - MARGE Performed By: #### L 500.4100, L506.1000, L500.4050, L509.3000, L503.0105, L501.9520, L501.9910 #### [facility] [address] [place], [address] Sodium [Moles/Vol] 139 mmol/L Normal 133-145 [facility] Comment on above: Order Comment: Order Date: 04/08/24 Order Info: 2132-02 - B12 Order Info: 39551-8 - VITD25 Order Info: 2986-8 - MARGE Performed By: #### L 500.4100, L506.1000, L500.4050, L509.3000, L503.0105, L501.9520, L501.9910 #### [facility] [address] [place], [address] T PROT 7.0 g/dL Normal 5.9-8.4 [facility] Comment on above: Order Comment: Order Date: 04/08/24 Order Info: 2132-02 B12 Order Info: 17894-4 - VITD25 Order Info: 2986-8 - MARGE Performed By: #### L 500.4100, L506.1000, L500.4050, L509.3000, L503.0105, L501.9520, L501.9910 #### [facility] [address] [place], [address] Urea nitrogen [Mass/Vol] 24 mg/dL High 4-19 [facility] Comment on above: Order Comment: Order Date: 04/08/24 Order Info: 2132-02 B12 Order Info: 65117-8 - VITD25 Order Info: 2986-8 - MARGE Performed By: #### L 500.4100, L506.1000, L500.4050, L509.3000, L503.0105, L501.9520, L501.9910 #### [facility] [address] [place], [address] Erythrocyte Sed Rateon 10-07 SED RATE 3 mm/hr Normal 0-20 [facility] Comment on above: Order Comment: Order Date: 10/07/24 Order Info: 0184-1 - CBCD Order Info: 63322-9 - SED Performed By: #### L 100.0100, L501.9520, L500.4050, L101.9900 #### [facility] [address] [place], [address] L509.3001on 10-07-2024 Testosterone [Mass/Vol] 134.00 ng/dL Low 300-720 [facility] Comment on above: Order Comment: Order Date: 04/08/24 Order Info: 2132-9 - B12 Order Info: 05850-1 - VITD25 Order Info: 2986-8 - MARGE Performed By: #### L 500.4100, L506.1000, L500.4050, L509.3000, L503.0105, L501.9520, L501.9910 #### [facility] [address] [place], [address] Thyroid Stim Hormone (TSH)on 10-07-2024 TSH 0.357 uIU/mL Normal 0.300-4.200 [facility] Comment on above: Order Comment: Order Date: 04/08/24 Order Info: 213-9 - B12 Order Info: 28902-6 - VITD25 Order Info: 2986-8 - MARGE Performed By: #### L 500.4100, L506.1000, L500.4050, L509.3000, L503.0105, L501.9520, L501.9910 #### [facility] [address] [place], [address] Vitamin D,25 Hydroxyon 10-07 Vitamin D 25-OH 50.1 ng/mL Normal 30-100 [facility] Comment on above: Order Comment: Order Date: 04/08/24 Order Info: 2132-9 - B12 Order Info: 42130-5 - VITD25 Order Info: 2986-8 - MARGE Result Comment: Arlene min D Status Deficiency: <20 ng/mL (50nmol/L) Insufficiency: 20-30 ng/mL (50-75 nmol/L) Sufficiency: 30-100 ng/mL (75-250 nmol/L) Toxicity: >100 ng/mL (>250 nmol/L) Performed By: #### L 500.4100, L506.1000, L500.4050, L509.3000, L503.0105, L501.9520, L501.9910 #### [facility] [address] [place], [place], [id number] Comprehensive Metabolic Prof mdon 04-08-2024 Albumin [Mass/Vol] 4.1 g/dL Normal 3.2-5.0 [facility] Comment on above: Order Comment: Order Date: 04/08/24 Order Info: 0786-1 - CMP Order Info: 68252-2 - LIPID Order Info: 3015-3 - TSH Order Info: 2857-1 - PSA Performed By: #### L 500.4100, L506.1000, L500.4050, L509.3000, L503.0105, L501.9520, L501.9910 #### [facility] [address] [place], [place], [address] Albumin/Globulin [Mass ratio] 1.2 {ratio} Normal 0.9-2.4 [facility] Comment on above: Order Comment: Order Date: 04/08/24 Order Info: 0786-1 - CMP Order Info: 60204-2 - LIPID Order Info: 3016-3 - TSH Order Info: 2857-1 - PSA Performed By: #### L 500.4100, L506.1000, L500.4050, L509.3000, L503.0105, L501.9520, L501.9910 #### [facility] [address] [place], [address] ALK P 75 U/L Normal 45-117 [facility] Comment on above: Order Comment: Order Date: 04/08/24 Order Info: 785- - CMP Order Info: - LIPID Order Info: 3015-3 - TSH Order Info: 2856-1 - PSA Performed By: #### L 500.4100, L506.1000, L500.4050, L509.3000, L503.0105, L501.9520, L501.9910 #### [facility] [address] [place], [address] ALT [Catalytic activity/Vol] 32 U/L Normal 16-61 [facility] Comment on above: Order Comment: Order Date: 04/08/24 Order Info: 785-06 - CMP Order Info: - LIPID Order Info: 3015-08 - TSH Order Info: 2856-06 - PSA Performed By: #### L 500.4100, L506.1000, L500.4050, L509.3000, L503.0105, L501.9520, L501.9910 #### [facility] [address] [place], [address] AST [Catalytic activity/Vol] 16 U/L Normal 15-37 [facility] Comment on above: Order Comment: Order Date: 04/08/24 Order Info: 785-06 - CMP Order Info: - LIPID Order Info: 3 - TSH Order Info: 2851 - PSA Performed By: #### L 500.4100, L506.1000, L500.4050, L509.3000, L503.0105, L501.9520, L501.9910 #### [facility] [address] [place], [address] Bilirubin [Mass/Vol] 0.60 mg/dL Normal 0.20-1.00 [facility] Comment on above: Order Comment: Order Date: 04/08/24 Order Info: 785- - CMP Order Info: - LIPID Order Info: 3015-08 - TSH Order Info: 2856-06 - PSA Result Comment: For patients on eltrombopag therapy, use of Dimension Lucinda TBIL is not recommended. Performed By: #### L 500.4100, L506.1000, L500.4050, L509.3000, L503.0105, L501.9520, L501.9910 #### [facility] [address] [place], [address] BUN/CRE 20.4 RATIO High 10-20 [facility] Comment on above: Order Comment: Order Date: 04/08/24 Order Info: 785- - CMP Order Info: - LIPID Order Info: 3015-08 - TSH Order Info: 2856-06 - PSA Performed By: #### L 500.4100, L506.1000, L500.4050, L509.3000, L503.0105, L501.9520, L501.9910 #### [facility] [address] [place], [address] CA,Total 9.6 mg/dL Normal 8.5-10.1 [facility] Comment on above: Order Comment: Order Date: 04/08/24 Order Info: 785-06 - CMP Order Info: - LIPID Order Info: 3015-08 - TSH Order Info: 2856-06 - PSA Performed By: #### L 500.4100, L506.1000, L500.4050, L509.3000, L503.0105, L501.9520, L501.9910 #### [facility] [address] [place], [address] Chloride [Moles/Vol] 107 mmol/L Normal 98-107 [facility] Comment on above: Order Comment: Order Date: 04/08/24 Order Info: 785-06 - CMP Order Info: - LIPID Order Info: 3015-08 - TSH Order Info: 2856-06 - PSA Performed By: #### L 500.4100, L506.1000, L500.4050, L509.3000, L503.0105, L501.9520, L501.9910 #### [facility] [address] [place], [address] CO2 [Moles/Vol] 23.0 mmol/L Normal 21.0-32.0 [facility] Comment on above: Order Comment: Order Date: 04/08/24 Order Info: 785-06 - CMP Order Info: - LIPID Order Info: 3015-08 - TSH Order Info: 2856-06 - PSA Performed By: #### L 500.4100, L506.1000, L500.4050, L509.3000, L503.0105, L501.9520, L501.9910 #### [facility] [address] [place], [address] Creatinine [Mass/Vol] 0.88 mg/dL Normal 0.70-1.30 [facility] Comment on above: Order Comment: Order Date: 04/08/24 Order Info: 785-06 - CMP Order Info: - LIPID Order Info: 3015-08 - TSH Order Info: 2856-06 - PSA Result Comment: The validity of the calculated GFR GFRAA in patients over 70 years has not been determined. Clinical correlation is essential. Performed By: #### L 500.4100, L506.1000, L500.4050, L509.3000, L503.0105, L501.9520, L501.9910 #### [facility] [address] [place], [address] EST GFR - AA 111 mL/min Normal >60 [facility] Comment on above: Order Comment: Order Date: 04/08/24 Order Info: 785-06 - CMP Order Info: 96706-5 - LIPID Order Info: 3015-08 - TSH Order Info: 2856-06 - PSA Result Comment: Afri can Citizen [place] GFR Calc Performed By: #### L 500.4100, L506.1000, L500.4050, L509.3000, L503.0105, L501.9520, L501.9910 #### [facility] [address] [place], [place], [id number] GAP 8 Normal 5-15 [facility] Comment on above: Order Comment: Order Date: 04/08/24 Order Info: 785-06 - CMP Order Info: - LIPID Order Info: 3015-08 - TSH Order Info: 2856-06 - PSA Performed By: #### L 500.4100, L506.1000, L500.4050, L509.3000, L503.0105, L501.9520, L501.9910 #### [facility] [address] [place], [place], [address] GFR/1.73 sq M.predicted among non-blacks MDRD (S/P/Bld) [Vol rate/Area] 92 mL/min/{1.73_m2} Normal >60 [facility] Comment on above: Order Comment: Order Date: 04/08/24 Order Info: 785-06 - CMP Order Info: - LIPID Order Info: 3015-08 - TSH Order Info: 2856-06 - PSA Result Comment: Non- GFR Calc Performed By: #### L 500.4100, L506.1000, L500.4050, L509.3000, L503.0105, L501.9520, L501.9910 #### [facility] [address] [place], [place], [id number] [phone] Globulin (S) [Mass/Vol] 3.4 g/dL Normal 2.2-4.2 [facility] Comment on above: Order Comment: Order Date: 04/08/24 Order Info: 785-06 - CMP Order Info: - LIPID Order Info: 3015-08 - TSH Order Info: 2856-06 - PSA Performed By: #### L 500.4100, L506.1000, L500.4050, L509.3000, L503.0105, L501.9520, L501.9910 #### [facility] [address] [place], [address] Glucose [Mass/Vol] 101 mg/dL Normal 74-106 [facility] Comment on above: Order Comment: Order Date: 04/08/24 Order Info: 785-06 - CMP Order Info: 83323-9 - LIPID Order Info: 3 - TSH Order Info: 2856-06 - PSA Result Comment: Fast ing Glucose result from 100 to 125 mg/dL suggests IMPAIRED HOMEOSTASIS per A.D.A. criteria. Performed By: #### L 500.4100, L506.1000, L500.4050, L509.3000, L503.0105, L501.9520, L501.9910 #### [facility] [address] [place], [address] Potassium [Moles/Vol] 3.9 mmol/L Normal 3.5-5.1 [facility] Comment on above: Order Comment: Order Date: 04/08/24 Order Info: 785-06 - CMP Order Info: - LIPID Order Info: 3015-08 - TSH Order Info: 2856-06 - PSA Performed By: #### L 500.4100, L506.1000, L500.4050, L509.3000, L503.0105, L501.9520, L501.9910 #### [facility] [address] [place], [address] Sodium [Moles/Vol] 138 mmol/L Normal 136-145 [facility] Comment on above: Order Comment: Order Date: 04/08/24 Order Info: 785-06 - CMP Order Info: - LIPID Order Info: 3015-08 - TSH Order Info: 2856-06 - PSA Performed By: #### L 500.4100, L506.1000, L500.4050, L509.3000, L503.0105, L501.9520, L501.9910 #### [facility] [address] [place], [address] T PROT 7.5 g/dL Normal 6.4-8.2 [facility] Comment on above: Order Comment: Order Date: 04/08/24 Order Info: 07 - CMP Order Info: - LIPID Order Info: 3015-08 - TSH Order Info: 1 - PSA Performed By: #### L 500.4100, L506.1000, L500.4050, L509.3000, L503.0105, L501.9520, L501.9910 #### [facility] [address] [place], [address] Urea nitrogen [Mass/Vol] 18 mg/dL Normal 7-18 [facility] Comment on above: Order Comment: Order Date: 04/08/24 Order Info: 785-06 - CMP Order Info: - LIPID Order Info: 3015-08 - TSH Order Info: 2856-06 - PSA Performed By: #### L 500.4100, L506.1000, L500.4050, L509.3000, L503.0105, L501.9520, L501.9910 #### [facility] [address] [place], [address] Lipid Profileon 04-08-2024 Cholesterol [Mass/Vol] 146 mg/dL Normal 200 [facility] Comment on above: Order Comment: Order Date: 04/08/24 Order Info: 785-06 - CMP Order Info: - LIPID Order Info: 3015-08 - TSH Order Info: 7-1 - PSA Result Comment: <200 mg/dL Desirable 200-240 mg/dL Borderline >240 mg/dL High Risk Performed By: #### L 500.4100, L506.1000, L500.4050, L509.3000, L503.0105, L501.9520, L501.9910 #### [facility] [address] [place], [address] Cholesterol in HDL [Mass/Vol] 39 mg/dL Low [facility] Comment on above: Order Comment: Order Date: 04/08/24 Order Info: 785-06 - CMP Order Info: - LIPID Order Info: 3015-08 - TSH Order Info: 2856-06 - PSA Result Comment: The drugs N-Acetylcysteine and Metamizole may falsely depress this assay. Reference Range HDL <40 mg/dL Low HDL Cholesterol HDL >or= 60 mg/dL High HDL Cholesterol Performed By: #### L 500.4100, L506.1000, L500.4050, L509.3000, L503.0105, L501.9520, L501.9910 #### [facility] [address] [place], [address] Cholesterol in LDL [Mass/Vol] 78 mg/dL Normal 0-130 [facility] Comment on above: Order Comment: Order Date: 04/08/24 Order Info: 785-06 - CMP Order Info: - LIPID Order Info: 3015-08 - TSH Order Info: 2856-06 - PSA Performed By: #### L 500.4100, L506.1000, L500.4050, L509.3000, L503.0105, L501.9520, L501.9910 #### [facility] [address] [place], [address] Cholesterol in VLDL [Mass/Vol] 29 mg/dL Normal 5-40 [facility] Comment on above: Order Comment: Order Date: 04/08/24 Order Info: 785-06 - CMP Order Info: - LIPID Order Info: 3015-08 - TSH Order Info: 2856-06 - PSA Performed By: #### L 500.4100, L506.1000, L500.4050, L509.3000, L503.0105, L501.9520, L501.9910 #### [facility] [address] [place], [address] Triglyceride [Mass/Vol] 145 mg/dL Normal [facility] Comment on above: Order Comment: Order Date: 04/08/24 Order Info: 785-06 - CMP Order Info: - LIPID Order Info: 3016-3 - TSH Order Info: 2857-1 - PSA Result Comment: The drugs N-Acetylcysteine and Metamizole may falsely depress this assay. Serum Triglycerides Reference Interval Normal <150 mg/dL Borderline high 150 - 199 mg/dL High 200 - 499 mg/dL Very High > or = 500 mg/dL Performed By: #### L 500.4100, L506.1000, L500.4050, L509.3000, L503.0105, L501.9520, L501.9910 #### [facility] [address] [place], [place], [address] PSA,Total - Annual Screenon 04-08-2024 PSA,TOT SCREEN 0.93 ng/mL Normal 0.00-4.00 [facility] Comment on above: Order Comment: Order Date: 04/08/24 Order Info: 0786-1 - CMP Order Info: 09291-0 - LIPID Order Info: 3 - TSH Order Info: 2856- - PSA Result Comment: This test was performed using the TPSA assay method for the real5D chemistry system. Values obtained with different assay methods cannot be used interchangably. When changing PSA assays in the course of monitoring a patient, additional sequential testing should be carried out to confirm baseline values. Performed By: #### L 500.4100, L506.1000, L500.4050, L509.3000, L503.0105, L501.9520, L501.9910 #### [facility] [address] [place], [place], [address] Testosterone, Serum Totalon 04-08-2024 Testosterone [Mass/Vol] 159.33 ng/dL Normal [facility] Comment on above: Order Comment: Order Date: 04/08/24 Order Info: 2132-9 - B12 Order Info: 52635-2 - VITD25 Order Info: 2986-8 - MARGE Result Comment: CENT RAL 90% REFERENCE RANGES MALE AGE <50 197.44 - 669.58 ng/dL MALE AGE > or = 50 187.72 - 684.19 ng/dL FEMALE AGE <50 8.38 - 35.01 ng/dL FEMALE AGE > or = 50 <7.00 - 35.92 ng/dL Effective as of 01/05/21 Performed By: #### L 500.4100, L506.1000, L500.4050, L509.3000, L503.0105, L501.9520, L501.9910 #### [facility] [address] [place], [address] Thyroid Stim Hormone (TSH)on 04-08-2024 TSH 0.382 uIU/mL Normal 0.358-3.740 [facility] Comment on above: Order Comment: Order Date: 04/08/24 Order Info: 0786-1 - CMP Order Info: 18009-7 - LIPID Order Info: 3016-3 - TSH Order Info: 2857-1 - PSA Performed By: #### L 500.4100, L506.1000, L500.4050, L509.3000, L503.0105, L501.9520, L501.9910 #### [facility] [address] [place], [address] Vitamin B12on 04-08-2024 Cobalamin (Vitamin B12) [Mass/Vol] 977 pg/mL High 211-911 [facility] Comment on above: Order Comment: Order Date: 04/08/24 Order Info: 2131-9 - B12 Order Info: 67971-0 - VITD25 Order Info: 2986-8 - MARGE Performed By: #### L 500.4100, L506.1000, L500.4050, L509.3000, L503.0105, L501.9520, L501.9910 #### [facility] [address] [place], [address] Vitamin D,25 Hydroxyon 04-08 Vitamin D 25-OH 44.1 ng/mL Normal [facility] Comment on above: Order Comment: Order Date: 04/08/24 Order Info: 2131-9 - B12 Order Info: 41139-8 - VITD25 Order Info: 2986-8 - MARGE Result Comment: Arlene min D 25(OH) Status Range Deficiency <20 ng/mL (50nmol/L) Insufficiency 20 - 30 ng/mL (50 - 75 nmol/L) Sufficiency 30 - 100 ng/mL (75 - 250 nmol/L) Toxicity >100 ng/mL (>250 nmol/L) Performed By: #### L 500.4100, L506.1000, L500.4050, L509.3000, L503.0105, L501.9520, L501.9910 #### [facility] [address] [place], [address] Office Visit Reporton 2023 Office Visit Report [facility] [address] [facility] [place] [address] OFFICE VISIT Date of Service: 03/20/24 MR#: [id number] Acct: [id number] Patient: CARLA OLIVAREZ JrMonico Rep #: [id number] : 1960 Provider: ELICEO Alexis Age/Sex: 63/M Location: [facility] Status: Signed Intake Vital Signs 11/03/23 08:04 Height 6 ft Weight: 239 lb BMI 32.4 BP 124/82 H Blood Pressure Location Lt brachial Position Sitting Respiration 18 Pulse 90 Pulse Source Monitor Temp 98.6 F Pulse Oximetry (%) 94 Oxygen Delivery Method room air Intake Visit 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 Chief Complaint: Test results Allergies No Known Allergies Allergy (Verified 11/03/23 09:11) Have you fallen in the past year?: No Office Procedures [facility] Billing Sheet Testing Breath Alcohol in [facility]: Yes Other Non-DOT Drug Screen: Yes Clinical Quality Measures Falls Risk Screening/Assistive Devices Have you fallen in the past year?: No 04/05/24 0752 Date Augusto FENTON Cosigner Signature: Date (if applicable) CC: Car[facility] Liseth 02-27-2024 KRISTEN Telephone (SLEWST) ---- CARLA OLIVAREZ ([id number]) 1960 M Date Time Provider Department 02/27/24 ELVI HUDSON During your visit today, we recorded the following information about you: Elvi Hudson APRN.CNP 02/27/2024 5:05 PM Signed LM on VM that I was calling in follow up re his sleep apnea after I discussed his case with Dr Elliott, recommended he call [phone] ask for Sleep nurse. When is best time for me to call him? LIZETT Wadsworth Rebecca, APRN.CNP 02/28/2024 5:31 PM Signed I spoke to pt, discussed looks like both obstructive>central . Continue with ASV. Elvi Hudson APRN.CNP Allergies As of Date: 02/27/2024 (No Known Allergies) Date Reviewed: 02/26/2024 Reviewed by: Elvi Hudson APRN.CNP - Fully Assessed Reason for Visit: Results [...] with nocturia [N40*02/26/2024 Primary hypertension [I10] 02/26/2024 Hypercholesterolemi a [E78.00] 02/26/2024 Central sleep apnea [G47.31] 02/26/2024 Encounter Status:Closed by CARINE GOEL on 02/29/24 Normal [facility] Leonardo 02-26-2024 CNOV Office Visit (SEGUNWST) ---- CARLA OLIVAREZ ([id number]) 1960 M Date Time Provider Department 02/26/24 9:00 AM ELVI HUDSON During your visit today, we recorded the following information about you: Pulse Respiration Blood pressure Weight 74/minute 16/minute 127/87 110.1 kg Elvi Hudson APRN.CNP 02/26/2024 6:16 PM Signed [facility] New Patient Evaluation PATIENT NAME: Carla Olivarez DATE OF SERVICE: February 26, 2024 CONSULTING PROVIDER: No referring provider defined for this encounter. REASON FOR VISIT: CSA HPI: Carla Olivarez is a 63 year old male. Sleep-related history: CSA on ASV, referred by [facility] [employer]. As soon as this device is paid [...] works but is not a shift worker. part time receptionist, drives [employer]. He does not have difficulty with memory [...] Benign Prostatic Hyperplasia With Nocturia Primary Hypertension Hypercholesterolemi a Central Sleep Apnea Allergies As of Date: [...] SpO2 100% (more content not included)... Normal [facility] 11-07-2023 RANDOLPH Telephone (NEMPRETTY) ---- CARLA OLIVAREZ ([id number]) 1960 M Date Time Provider Department 11/07/23 [...] 4 hours as needed (SOB/wheezing/cough ing spasms). - cholecalciferol (VITAMIN D3) 1,000 unit [...] Status:Closed by TRICIA ARCOS on 11/07/23 Normal [facility] Pulmonary Visit Reporton Pulmonary Visit Report [facility] [place] [address] [place] [address] OFFICE VISIT Date of Service: 11/03/23 MR#: [id number] Acct: [id number] Name: CARLA OLIVAREZ Rep #: [id number] : 1960 Provider: CEFERINO Cat Age/Sex: 62/M Location: [facility] Status: Signed Assessment and Plan Assessment and Plan (1) CSA (central sleep apnea): Status: Chronic Plan: Deteriorated. Still not optimized despite significant effort on the patient's behalf. For this reason I am now going to refer him to a sleep specialist. Patient understands and is agreeable with this plan. He may follow-up in the office as needed moving forward. (2) Obesity: Status: Chronic Qualifiers: Body mass index: BMI 33.0-33.9 Obesity classification: adult class 1 (BMI 30 - 34.9) Obesity type: due to excess calories Serious obesity comorbidity presence: with serious comorbidity Qualified Code(s): E66.09 - Other obesity due to excess calories; Z68.33 - Body mass index [BMI] 33.0-33.9, adult Plan: Encourage weight loss. Orders: Referrals Sleep Medicine G47.31 - Primary central sleep apnea HPI 3 M FU Chief Complaint: Dry mouth HPI Comments Details: This patient presents to the office today for close interval follow-up of his obstructive sleep apnea. He is ambulatory and currently on room air. He has not recently been seen in the ED or urgent care for any respiratory illness. He has not required any antibiotics or prednisone for any breathing problems. He denies any difficulty with shortness of breath. He denies any cough, sputum production or hemoptysis. He denies any wheezing, chest tightness, chest pain or palpitations. He has not had any fever, chills or body aches. The patient reports that he continues to try to be compliant with PAP therapy. However, he wakes up several times at night. He is having difficulty with dry mouth. He is not feeling rested. He rarely is able to sleep more than 3 or 4 hours with the PAP device on. If you recall, he is a former smoker quitting smoking over 20 years ago. Compliance report for the past 30 days shows 100% compliance with average use of 3 hours and 22 minutes per night. Current setting is ASV EPAP 7 cmH2O, pressure support of 3 to 18 cm of water. Leaks do not appear to be problematic. Residual AHI of 2.6 events per hour. Intake Vital Signs 07/17/23 07:34 11/03/23 08:04 Height 6 ft 6 ft Weight: 248 lb 239 lb BMI 33.6 32.4 BP 145/83 H 124/82 H Blood Pressure Location Rt brachial Lt brachial Position Sitting Sitting Respiration 18 18 Pulse 81 90 Pulse Source Monitor Monitor Temp 98.2 F 98.6 F Temperature Source Temporal Artery Temporal Artery Pulse Oximetry (%) 95 94 Oxygen Delivery Method room air room air Intake Visit Reasons: 3 M FU Chief Complaint: Test results [employer] Required: No DME Vendor: [employer] Accompanied by: Self Allergies No Known Allergies Allergy (Verified 11/03/23 09:11) Medications ???Medication ???Instructions ???Recorded ???Confirmed ???Type atenolol 25 mg tablet 25 mg PO DAILY 03/16/16 11/03/23 History cholecalciferol (vitamin D3) 50 2,000 unit PO DAILY 03/16/16 11/03/23 History mcg (2,000 unit) capsule (D3-2000) omeprazole 20 mg capsule,delayed 20 mg PO DAILY 03/16/16 11/03/23 History release probenecid 500 mg tablet 500 mg PO BID 03/16/16 11/03/23 History tamsulosin 0.4 mg capsule 0.4 mg PO DAILY 03/16/16 11/03/23 History cyanocobalamin (vitamin B-12) 5,000 mcg PO DAILY 09/19/22 11/03/23 History 5,000 mcg capsule dapagliflozin propanediol 10 mg 10 mg PO DAILY 09/19/22 11/03/23 History tablet (Farxiga) tadalafil 10 mg tablet 10 mg PO DAILY 09/19/22 11/03/23 History hydroxyzine HCl 25 mg tablet 25 mg PO PRN 07/17/23 11/03/23 History levothyroxine 125 mcg tablet 125 mcg PO DAILY 07/17/23 11/03/23 History metformin 500 mg tablet,extended 1,000 mg PO DAILY 07/17/23 11/03/23 History release 24 hr rosuvastatin 40 mg tablet 40 mg PO 07/17/23 11/03/23 History dulaglutide 1.5 mg/0.5 mL mg subcut 11/03/23 11/03/23 History subcutaneous pen injector (Trulicity) [facility] Medical History BMI 34.0-34.9,adult CSA (central sleep apnea) Hypertension Primary snoring HTN (hypertension) with goal to be determined Family History Father Bladder tumor Social History Smoking Status: Former smoker Tobacco: How many years used: 30 Review of Systems Resp Respiratory: Yes as per HPI Exam Const Constitutional: Positive conversant, cooperative, in no acute respiratory distress, healthy a (more content not included)... Normal [facility] Basophil percentageOrdered B y: Renan Mason on 09-29-2023 Bilirubin [Mass/Vol] 0.60 mg/dL 0.20-1.00 [facility] Comment on above: For patients on eltr ombopag therapy, use of Dimension Lucinda TBIL is not recommended. Chloride [Moles/Vol] 106 mmol/L 98-107 [facility] Cholesterol [Mass/Vol] 129 mg/dL <200 [facility] Comment on above: <200 mg/dL Desirable 200-240 mg/dL Borderline >240 mg/dL High Risk Glucose [Mass/Vol] 115 mg/dL 74-106 [facility] Comment on above: Fasting Glucose resu lt from 100 to 125 mg/dL suggests IMPAIRED HOMEOSTASIS per A.D.A. criteria. Potassium [Moles/Vol] 3.8 mmol/L 3.5-5.1 [facility] Protein [Mass/Vol] 7.3 g/dL 6.4-8.2 [facility] Sodium [Moles/Vol] 140 mmol/L 136-145 [facility] Triglyceride [Mass/Vol] 234 mg/dL <199 [facility] Comment on above: The drugs N-Acetylcy steine and Metamizole may falsely depress this assay.Serum Triglycerides Reference Interval Normal <150 mg/dL Borderline high 150 - 199 mg/dL High 200 - 499 mg/dL Very High > or = 500 mg/dL Laboratory - Chemistry and C hemistry - challengeOrdered By: Renan Mason on 09-29-2023 Albumin/Globulin [Mass ratio] 1.2 {ratio} 0.9-2.4 [facility] ALP [Catalytic activity/Vol] 72 U/L 45-117 [facility] ALT [Catalytic activity/Vol] 35 U/L 16-61 [facility] Cholesterol in HDL [Mass/Vol] 31 mg/dL >40 [facility] Comment on above: The drugs N-Acetylcy steine and Metamizole may falsely depress this assay. Reference Range HDL <40 mg/dL Low HDL Cholesterol HDL >or= 60 mg/dL High HDL Cholesterol Cholesterol in LDL [Mass/Vol] 51 mg/dL 0-130 [facility] CO2 [Moles/Vol] 25.0 mmol/L 21.0-32.0 [facility] Globulin (S) [Mass/Vol] 3.3 g/dL 2.2-4.2 [facility] Urea nitrogen/Creatinine [Mass ratio] 22.9 mg/mg 10-20 [facility] No Panel InformationOrdered By: Renan Mason on 09-29-2023 Estimated GFR (MDRD) Amer 91 mL/min >60 [facility] Comment on above: GFR Calc Estimated GFR (MDRD) Non-Af Amer 75 mL/min >60 [facility] Comment on above: Non- GFR Calc VLDL Cholesterol 47 mg/dL 5-40 [facility] Serum or plasma calcium sangeeta urement (mass/volume)Ordered By: Renan Mason on 09-29-2023 Calcium [Mass/Vol] 9.3 mg/dL 8.5-10.1 [facility] Serum or plasma creatinine m easurement (mass/volume)Ordered By: Renan Mason on 09-29-2023 Creatinine [Mass/Vol] 1.05 mg/dL 0.70-1.30 [facility] Comment on above: The validity of the calculated GFR & GFRAA in patients over 70 years has not been determined. Clinical correlation is essential. Serum or plasma urea nitroge n measurement (mass/volume)Ordered By: Renan Mason on 09-29-2023 Urea nitrogen [Mass/Vol] 24 mg/dL 7-18 [facility] Thin prep Papanicolaou smear with manual screeningOrdered By: Renan Mason on 09-29-2023 Thin prep Papanicolaou smear with manual screening 4.0 g/dL 3.2-5.0 [facility] Thin prep Papanicolaou smear with manual screening 21 U/L 15-37 [facility] Thin prep Papanicolaou smear with manual screening 9 5-15 [facility] Whole blood hemoglobin A1c/t otal hemoglobin ratio (mass fraction)Ordered By: Renan Mason on 09-29-2023 HbA1c (Bld) [Mass fraction] 7.5 % 3.8-5.6 [facility] Comment on above: Normal < 5.7 % Predi abetic 5.7 - 6.4 % Diabetic >or= 6.5 % Please note range changes. Basophil percentageOrdered B y: Navjot Mason on 04-03-2023 Bilirubin [Mass/Vol] 0.30 mg/dL 0.20-1.00 [facility] Comment on above: For patients on eltr ombopag therapy, use of Dimension Lucinda TBIL is not recommended. Chloride [Moles/Vol] 108 mmol/L 98-107 [facility] Cholesterol [Mass/Vol] 150 mg/dL <200 [facility] Comment on above: <200 mg/dL Desirable 200-240 mg/dL Borderline >240 mg/dL High Risk Glucose [Mass/Vol] 178 mg/dL 74-106 [facility] Comment on above: Fasting Glucose resu lt greater than or equal to 126 mg/dL suggests DIABETES MELLITUS per A.D.A. criteria. Potassium [Moles/Vol] 4.0 mmol/L 3.5-5.1 [facility] Protein [Mass/Vol] 7.2 g/dL 6.4-8.2 [facility] Sodium [Moles/Vol] 140 mmol/L 136-145 [facility] Triglyceride [Mass/Vol] 261 mg/dL <199 [facility] Comment on above: The drugs N-Acetylcy steine and Metamizole may falsely depress this assay.Serum Triglycerides Reference Interval Normal <150 mg/dL Borderline high 150 - 199 mg/dL High 200 - 499 mg/dL Very High > or = 500 mg/dL Laboratory - Chemistry and C hemistry - challengeOrdered By: Navjot Mason on 04-03-2023 ALP [Catalytic activity/Vol] 84 U/L 45-117 [facility] ALT [Catalytic activity/Vol] 42 U/L 16-61 [facility] CO2 [Moles/Vol] 27.0 mmol/L 21.0-32.0 [facility] Cobalamin (Vitamin B12) [Mass/Vol] 640 pg/mL 211-911 [facility] Globulin (S) [Mass/Vol] 3.3 g/dL 2.2-4.2 [facility] Urea nitrogen/Creatinine [Mass ratio] 15.7 mg/mg 10-20 [facility] No Panel InformationOrdered By: Navjot Mason on 04-03-2023 Estimated GFR (MDRD) Amer 95 mL/min >60 [facility] Comment on above: GFR Calc Estimated GFR (MDRD) Non-Af Amer 78 mL/min >60 [facility] Comment on above: Non- GFR Calc Thyroid Stimulating Hormone (TSH) 1.93 uIU/mL 0.358-3.74 [facility] Vitamin D 25-Hydroxy 50.9 ng/mL [facility] Comment on above: Vitamin D 25(OH) Sta tus Range Deficiency <20 ng/mL (50nmol/L) Insufficiency 20 - 30 ng/mL (50 - 75 nmol/L) Sufficiency 30 - 100 ng/mL (75 - 250 nmol/L) Toxicity >100 ng/mL (>250 nmol/L) Serum or plasma albumin sangeeta urement (mass/volume)Ordered By: Navjot Mason on 04-03-2023 Albumin [Mass/Vol] 3.9 g/dL 3.2-5.0 [facility] Serum or plasma albumin/glob ulin mass ratioOrdered By: Navjot Mason on 04-03-2023 Albumin/Globulin [Mass ratio] 1.2 {ratio} 0.9-2.4 [facility] Serum or plasma calcium sangeeta urement (mass/volume)Ordered By: Navjot Mason on 04-03-2023 Calcium [Mass/Vol] 9.2 mg/dL 8.5-10.1 [facility] Serum or plasma cholesterol in HDL measurement (mass/volume)Ordered By: Navjot Mason on 04-03-2023 Cholesterol in HDL [Mass/Vol] 34 mg/dL >40 [facility] Comment on above: The drugs N-Acetylcy steine and Metamizole may falsely depress this assay. Reference Range HDL <40 mg/dL Low HDL Cholesterol HDL >or= 60 mg/dL High HDL Cholesterol Serum or plasma cholesterol in VLDL measurement (mass/volume)Ordered By: Navjot Mason on 04-03-2023 Cholesterol in VLDL [Mass/Vol] 52 mg/dL 5-40 [facility] Serum or plasma creatinine m easurement (mass/volume)Ordered By: Navjot Mason on 04-03-2023 Creatinine [Mass/Vol] 1.02 mg/dL 0.70-1.30 [facility] Comment on above: The validity of the calculated GFR & GFRAA in patients over 70 years has not been determined. Clinical correlation is essential. Serum or plasma low density lipoprotein (LDL) cholesterol measurement (mass/volume)Ordered By: Navjot Mason on 04-03-2023 Cholesterol in LDL [Mass/Vol] 64 mg/dL 0-130 [facility] Serum or plasma urea nitroge n measurement (mass/volume)Ordered By: Navjot Mason on 04-03-2023 Urea nitrogen [Mass/Vol] 16 mg/dL 7-18 [facility] Thin prep Papanicolaou smear with manual screeningOrdered By: Navjot Mason 04-03-2023 Thin prep Papanicolaou smear with manual screening 21 U/L 15-37 [facility] Thin prep Papanicolaou smear with manual screening 5 5-15 [facility] Laboratory - Chemistry and C hemistry - challengeOrdered By: Navjot Mason on 12-14-2022 Cobalamin (Vitamin B12) [Mass/Vol] 587 pg/mL 211-911 [facility] No Panel InformationOrdered By: Navjot Mason on 12-14-2022 Vitamin D 25-Hydroxy 54.4 ng/mL [facility] Comment on above: Vitamin D 25(OH) Sta tus Range Deficiency <20 ng/mL (50nmol/L) Insufficiency 20 - 30 ng/mL (50 - 75 nmol/L) Sufficiency 30 - 100 ng/mL (75 - 250 nmol/L) Toxicity >100 ng/mL (>250 nmol/L) Basophil percentageOrdered B y: Dr. Mason on 08-15-2022 Bilirubin [Mass/Vol] 0.40 mg/dL 0.20-1.00 [facility] Comment on above: For patients on eltr ombopag therapy, use of Dimension Lucinda TBIL is not recommended. Chloride [Moles/Vol] 105 mmol/L 98-107 [facility] Glucose [Mass/Vol] 132 mg/dL 74-106 [facility] Comment on above: Fasting Glucose resu lt greater than or equal to 126 mg/dL suggests DIABETES MELLITUS per A.D.A. criteria. Potassium [Moles/Vol] 4.1 mmol/L 3.5-5.1 [facility] Protein [Mass/Vol] 7.6 g/dL 6.4-8.2 [facility] Sodium [Moles/Vol] 141 mmol/L 136-145 [facility] Testosterone [Mass/Vol] 163.12 ng/dL [facility] Comment on above: CENTRAL 90% REFERENC E RANGES MALE AGE <50 197.44 - 669.58 ng/dL MALE AGE > or = 50 187.72 - 684.19 ng/dL FEMALE AGE <50 8.38 - 35.01 ng/dL FEMALE AGE > or = 50 <7.00 - 35.92 ng/dL Effective as of 01/05/21 WBC (Bld) [#/Vol] 6.6 10*3/uL 4.4-11.0 [facility] Blood erythrocytes count (nu mber/volume)Ordered By: Dr. Mason on 08-15-2022 RBC (Bld) [#/Vol] 5.91 10*6/uL 4.6-6.2 [facility] Blood hemoglobin measurement (mass/volume)Ordered By: Dr. Mason on 08-15-2022 Hemoglobin (Bld) [Mass/Vol] 16.4 g/dL 13.0-16.5 [facility] Blood platelet mean volumeOr dered By: Dr. Mason on 08-15-2022 Platelet mean volume (Bld) [Entitic vol] 10.0 fL 6.2-12.0 [facility] Determination of erythrocyte mean corpuscular volume (MCV)Ordered By: Dr. Mason on 08-15-2022 MCV (RBC) [Entitic vol] 85.3 fL 80-94 [facility] Hematocrit Auto (Bld) [Volum e fraction]Ordered By: Dr. Mason on 08-15-2022 Hematocrit (Bld) [Volume fraction] 50.4 % 40-54 [facility] Laboratory - Chemistry and C hemistry - challengeOrdered By: Dr. Mason on 08-15-2022 ALP [Catalytic activity/Vol] 69 U/L 45-117 [facility] ALT [Catalytic activity/Vol] 38 U/L 16-61 [facility] CO2 [Moles/Vol] 29.0 mmol/L 21.0-32.0 [facility] Cobalamin (Vitamin B12) [Mass/Vol] 326 pg/mL 211-911 [facility] Globulin (S) [Mass/Vol] 3.5 g/dL 2.2-4.2 [facility] Urea nitrogen/Creatinine [Mass ratio] 15.7 mg/mg 10-20 [facility] Laboratory - Hematology and Cell countsOrdered By: Dr. Mason on 08-15-2022 Erythrocyte distribution width (RBC) [Entitic vol] 42.5 fL 35.1-43.9 [facility] Erythrocyte distribution width (RBC) [Ratio] 13.7 % 11.6-14.6 [facility] MCH (RBC) [Entitic mass] 27.7 pg 27.0-32.0 [facility] Auto (RBC) [Mass/Vol]Or dered By: Dr. Mason on 08-15-2022 MCHC (RBC) [Mass/Vol] 32.5 g/dL 32-36 [facility] No Panel InformationOrdered By: Dr. Mason on 08-15-2022 Estimated GFR (MDRD) Amer 82 mL/min >60 [facility] Comment on above: GFR Calc Estimated GFR (MDRD) Non-Af Amer 68 mL/min >60 [facility] Comment on above: Non- GFR Calc Vitamin D 25-Hydroxy 37.0 ng/mL [facility] Comment on above: Vitamin D 25(OH) Sta tus Range Deficiency <20 ng/mL (50nmol/L) Insufficiency 20 - 30 ng/mL (50 - 75 nmol/L) Sufficiency 30 - 100 ng/mL (75 - 250 nmol/L) Toxicity >100 ng/mL (>250 nmol/L) Platelets bldOrdered By: Dr. Mason on 08-15-2022 Platelets (Bld) [#/Vol] 208 10*3/uL 150-450 [facility] Serum or plasma albumin sangeeta urement (mass/volume)Ordered By: Dr. Mason on 08-15-2022 Albumin [Mass/Vol] 4.1 g/dL 3.2-5.0 [facility] Serum or plasma albumin/glob ulin mass ratioOrdered By: Dr. Mason on 08-15-2022 Albumin/Globulin [Mass ratio] 1.2 {ratio} 0.9-2.4 [facility] Serum or plasma calcium sangeeta urement (mass/volume)Ordered By: Dr. Mason on 08-15-2022 Calcium [Mass/Vol] 9.5 mg/dL 8.5-10.1 [facility] Serum or plasma creatinine m easurement (mass/volume)Ordered By: Dr. Mason on 08-15-2022 Creatinine [Mass/Vol] 1.15 mg/dL 0.70-1.30 [facility] Comment on above: The validity of the calculated GFR & GFRAA in patients over 70 years has not been determined. Clinical correlation is essential. Serum or plasma urea nitroge n measurement (mass/volume)Ordered By: Dr. Mason on 08-15-2022 Urea nitrogen [Mass/Vol] 18 mg/dL 7-18 [facility] Thin prep Papanicolaou smear with manual screeningOrdered By: Dr. Mason on 08-15-2022 Thin prep Papanicolaou smear with manual screening 22 U/L 15-37 [facility] Thin prep Papanicolaou smear with manual screening 7 5-15 [facility] Basophil percentageOrdered B y: Dr. Mason on 05-09-2022 Chloride [Moles/Vol] 101 mmol/L 98-107 [facility] Glucose [Mass/Vol] 163 mg/dL 74-106 [facility] Comment on above: Fasting Glucose resu lt greater than or equal to 126 mg/dL suggests DIABETES MELLITUS per A.D.A. criteria. Potassium [Moles/Vol] 4.1 mmol/L 3.5-5.1 [facility] Sodium [Moles/Vol] 139 mmol/L 136-145 [facility] Basophil percentage 0-5 SEEN /hpf 0-5 [facility] Cholesterol [Mass/Vol] 186 mg/dL <200 [facility] Comment on above: <200 mg/dL Desirable 200-240 mg/dL Borderline >240 mg/dL High Risk Triglyceride [Mass/Vol] 296 mg/dL <199 [facility] Comment on above: The drugs N-Acetylcy steine and Metamizole may falsely depress this assay.Serum Triglycerides Reference Interval Normal <150 mg/dL Borderline high 150 - 199 mg/dL High 200 - 499 mg/dL Very High > or = 500 mg/dL Bilirubin Test strip Ql (U)O rdered By: Dr. Mason on 05-09-2022 Bilirubin Ql (U) Negative Negative [facility] Ketones Test strip Ql (U)Ord ered By: Dr. Mason on 05-09-2022 Ketones Ql (U) Negative Negative [facility] Laboratory - Chemistry and C hemistry - challengeOrdered By: Dr. Mason on 05-09-2022 CO2 [Moles/Vol] 29.0 mmol/L 21.0-32.0 [facility] Urea nitrogen/Creatinine [Mass ratio] 15.1 mg/mg 10-20 [facility] Mucus LM Ql (Urine sed)Order ed By: Dr. Mason on 05-09-2022 Mucus Ql (Urine sed) 0 SEEN /hpf [facility] Nitrite Test strip Ql (U)Ord ered By: Dr. Mason on 05-09-2022 Nitrite Ql (U) Negative Negative [facility] No Panel InformationOrdered By: Dr. Mason on 05-09-2022 Estimated GFR (MDRD) Amer 91 mL/min >60 [facility] Comment on above: GFR Calc Estimated GFR (MDRD) Non-Af Amer 75 mL/min >60 [facility] Comment on above: Non- GFR Calc Prostate Specific Antigen Screen 1.08 ng/mL 0.00-4.00 [facility] Comment on above: This test was perfor med using the TPSA assay method for [employer] chemistry system. Values obtained with differentassay methods cannot be used interchangably.When changing PSA assays in the course of monitoring apatient, additional sequential testing should be carriedout to confirm baseline values. Protein Test strip Ql (U)Ord ered By: Dr. Mason on 05-09-2022 Protein Ql (U) Negative Negative [facility] Serum or plasma calcium sangeeta urement (mass/volume)Ordered By: Dr. Mason on 05-09-2022 Calcium [Mass/Vol] 9.3 mg/dL 8.5-10.1 [facility] Serum or plasma cholesterol in HDL measurement (mass/volume)Ordered By: Dr. Mason on 05-09-2022 Cholesterol in HDL [Mass/Vol] 45 mg/dL >40 [facility] Comment on above: The drugs N-Acetylcy steine and Metamizole may falsely depress this assay. Reference Range HDL <40 mg/dL Low HDL Cholesterol HDL >or= 60 mg/dL High HDL Cholesterol Serum or plasma cholesterol in VLDL measurement (mass/volume)Ordered By: Dr. Mason on 05-09-2022 Cholesterol in VLDL [Mass/Vol] 59 mg/dL 5-40 [facility] Serum or plasma creatinine m easurement (mass/volume)Ordered By: Dr. Mason on 05-09-2022 Creatinine [Mass/Vol] 1.06 mg/dL 0.70-1.30 [facility] Comment on above: The validity of the calculated GFR & GFRAA in patients over 70 years has not been determined. Clinical correlation is essential. Serum or plasma low density lipoprotein (LDL) cholesterol measurement (mass/volume)Ordered By: Dr. Mason on 05-09-2022 Cholesterol in LDL [Mass/Vol] 82 mg/dL 0-130 [facility] Serum or plasma urea nitroge n measurement (mass/volume)Ordered By: Dr. Mason on 05-09-2022 Urea nitrogen [Mass/Vol] 16 mg/dL 7-18 [facility] Serum or plasma uric acid me asurement (mass/volume)Ordered By: Dr. Mason on 05-09-2022 Urate [Mass/Vol] 2.7 mg/dL 3.5-7.2 [facility] Comment on above: The drugs N-Acetylcy steine and Metamizole may falsely depress this assay. Squamous epithelial cells de tection in urine sediment by light microscopyOrdered By: Dr. Mason on 05-09-2022 Epithelial cells.squamous LM Ql (Urine sed) 0 SEEN /hpf 0-5 [facility] Thin prep Papanicolaou smear with manual screeningOrdered By: Dr. Mason on 05-09-2022 Thin prep Papanicolaou smear with manual screening 9 5-15 [facility] Thin prep Papanicolaou smear with manual screening 24.4 mg/L NO RANGE EST. [facility] Urine blood detectionOrdered By: Dr. Mason on 05-09-2022 RBC Ql (U) Negative Negative [facility] RBC Ql (U) 0 SEEN /hpf 0-5 [facility] Urine clarityOrdered By: Dr. Mason on 05-09-2022 Clarity (U) Clear Clear [facility] Urine color determinationOrd ered By: Dr. Mason on 05-09-2022 Color (U) Yellow Yellow [facility] Urine glucose detectionOrder ed By: Dr. Mason on 05-09-2022 Glucose Ql (U) 1000 mg/dl Normal [facility] Urine leukocyte esterase det ection by dipstickOrdered By: Dr. Mason on 05-09-2022 Leukocyte esterase Test strip Ql (U) Negative Negative [facility] Urine pHOrdered By: Dr. Azul roy on 05-09-2022 pH (U) 6.5 [pH] 5.0 - 8.0 [facility] Urine sediment bacteria coun t by microscopy (number/high power field)Ordered By: Dr. Mason on 05-09-2022 Bacteria LM.HPF (Urine sed) [#/Area] 0 /[HPF] None Seen [facility] Urine specific gravity measu rementOrdered By: Dr. Mason on 05-09-2022 Specific gravity (U) [Rel density] 1.015 1.002-1.030 [facility] Urobilinogen Auto test strip Ql (U)Ordered By: Dr. Mason on 05-09-2022 Urobilinogen Ql (U) Normal mg/dl Normal [facility] Basophil percentageon 2021 Chloride [Moles/Vol] 106 mmol/L 98-107 [facility] Work Phone: Cholesterol [Mass/Vol] 170 mg/dL <200 [facility] Work Phone: Comment on above: <200 mg/dL Desirable 200-240 mg/dL Borderline >240 mg/dL High Risk Glucose [Mass/Vol] 166 mg/dL 74-106 [facility] Work Phone: Comment on above: Fasting Glucose resu lt greater than or equal to 126 mg/dL suggests DIABETES MELLITUS per A.D.A. criteria. Potassium [Moles/Vol] 3.9 mmol/L 3.5-5.1 [facility] Work Phone: Sodium [Moles/Vol] 139 mmol/L 136-145 [facility] Work Phone: Triglyceride [Mass/Vol] 296 mg/dL <199 [facility] Work Phone: Comment on above: The drugs N-Acetylcy steine and Metamizole may falsely depress this assay.Serum Triglycerides Reference Interval Normal <150 mg/dL Borderline high 150 - 199 mg/dL High 200 - 499 mg/dL Very High > or = 500 mg/dL Laboratory - Chemistry and C hemistry - challengeon 01-17-2022 CO2 [Moles/Vol] 28.0 mmol/L 21.0-32.0 [facility] Work Phone: Urea nitrogen/Creatinine [Mass ratio] 22.9 mg/mg 10-20 [facility] Work Phone: No Panel Informationon 01-17 Estimated GFR (MDRD) Amer 92 mL/min >60 [facility] Work Phone: Comment on above: GFR Calc Estimated GFR (MDRD) Non-Af Amer 76 mL/min >60 [facility] Work Phone: Comment on above: Non- GFR Calc Thyroid Stimulating Hormone (TSH) 0.79 uIU/mL 0.358-3.74 [facility] Work Phone: Serum or plasma calcium sangeeta urement (mass/volume)on 01-17-2022 Calcium [Mass/Vol] 9.8 mg/dL 8.5-10.1 [facility] Work Phone: Serum or plasma cholesterol in HDL measurement (mass/volume)on 01-17-2022 Cholesterol in HDL [Mass/Vol] 31 mg/dL >40 [facility] Work Phone: Comment on above: The drugs N-Acetylcy steine and Metamizole may falsely depress this assay. Reference Range HDL <40 mg/dL Low HDL Cholesterol HDL >or= 60 mg/dL High HDL Cholesterol Serum or plasma cholesterol in VLDL measurement (mass/volume)on 01-17-2022 Cholesterol in VLDL [Mass/Vol] 59 mg/dL 5-40 [facility] [facility] Work Phone: Serum or plasma creatinine m easurement (mass/volume)on 01-17-2022 Creatinine [Mass/Vol] 1.05 mg/dL 0.70-1.30 [facility] Work Phone: Comment on above: The validity of the calculated GFR & GFRAA in patients over 70 years has not been determined. Clinical correlation is essential. Serum or plasma low density lipoprotein (LDL) cholesterol measurement (mass/volume)on 01-17-2022 Cholesterol in LDL [Mass/Vol] 80 mg/dL 0-130 [facility] Work Phone: Serum or plasma urea nitroge n measurement (mass/volume)on 01-17-2022 Urea nitrogen [Mass/Vol] 24 mg/dL 7-18 [facility] Work Phone: Thin prep Papanicolaou smear with manual screeningon 01-17-2022 Thin prep Papanicolaou smear with manual screening 5 5-15 [facility] Work Phone: Vital Signs Date Time Vital Sign Value Performing Clinician Faci lity 02-26-2024 09:02-0400 Body weight 110.1 kg Elvi Becca MAIL CARRIER.LUBE WORKER Work Phone: [facility] 02-26-2024 09:02-0400 Diastolic blood pressure 87 mm[Hg] Elvi Becca MAIL CARRIER.LUBE WORKER Work Phone: [facility] 02-26-2024 09:02-0400 Heart rate 74 /min Elvi Becca MAIL CARRIER.LUBE WORKER Work Phone: [facility] 02-26-2024 09:02-0400 Respiratory rate 16 /min Elvi Becca MAIL CARRIER.LUBE WORKER Work Phone: [facility] 02-26-2024 09:02-0400 SaO2% (BldA) [Mass fraction] 100 % Elvi Becca MAIL CARRIER.LUBE WORKER Work Phone: [facility] 02-26-2024 09:02-0400 Systolic blood pressure 127 mm[Hg] Elvi Becca MAIL CARRIER.LUBE WORKER Work Phone: [facility] 07-17-2023 07:34-0500 Body height 182.[address] Navjot Mason Work Phone: [facility] 07-17-2023 07:34-0500 Body mass index (BMI) [Ratio] 33.6 kg/m2 Dr. Navjot Mason Work Phone: [facility] 07-17-2023 07:34-0500 Body temperature 98.2 [degF] Dr. Navjot Mason Work Phone: [facility] 07-17-2023 07:34-0500 Body weight 112.[address] Navjot Mason Work Phone: [facility] 07-17-2023 07:34-0500 Diastolic blood pressure 83 mm[Hg] Dr. Navjot Mason Work Phone: [facility] 07-17-2023 07:34-0500 Heart rate 81 /min Dr. Navjot Mason Work Phone: [facility] 07-17-2023 07:34-0500 Respiratory rate 18 /min Dr. Navjot Mason Work Phone: 4(222)038-065081 [address] 07-17-2023 07:34-0500 SaO2% (BldA) [Mass fraction] 95 % Dr. Navjot Mason Work Phone: [facility] 07-17-2023 07:34-0500 Systolic blood pressure 145 mm[Hg] Dr. Navjot Mason Work Phone: 9(154)272-857781 [address] 03-31-2023 09:09-0400 Body height 182.[address] Navjot Mason Work Phone: [facility] 02-07-2023 07:41-0400 Body mass index (BMI) [Ratio] 33.9 kg/m2 Dr. Navjot Mason Work Phone: 5(064)611-120435 [place] [address] 02-07-2023 07:41-0400 Body temperature 97.5 [degF] Dr. Navjot Mason Work Phone: 4(449)812-316135 [place] [address] 02-07-2023 07:41-0400 Body weight 113.[address] Navjot Msaon Work Phone: [facility] 02-07-2023 07:41-0400 Diastolic blood pressure 82 mm[Hg] Dr. Navjot Mason Work Phone: [facility] 02-07-2023 07:41-0400 Heart rate 86 /min Dr. Navjot Mason Work Phone: [facility] 02-07-2023 07:41-0400 Respiratory rate 18 /min Dr. Navjot Mason Work Phone: [facility] 02-07-2023 07:41-0400 SaO2% (BldA) [Mass fraction] 95 % Dr. Navjot Mason Work Phone: [facility] 02-07-2023 07:41-0400 Systolic blood pressure 131 mm[Hg] Dr. Navjot Mason Work Phone: 3(077)[phone] [address] 10-17-2022 11:16-0400 Body height 182.[address] Navjot Mason Work Phone: 2(813)881-107581 [address] 10-17-2022 11:16-0400 Body mass index (BMI) [Ratio] 33.9 kg/m2 Dr. Navjot Mason Work Phone: 1(496)691-858235 [place] [address] 10-17-2022 11:16-0400 Body temperature 97.2 [degF] Dr. Navjot Mason Work Phone: 7(880)[phone] [address] 10-17-2022 11:16-0400 Body weight 113.[address] Navjot Mason Work Phone: [facility] 10-17-2022 11:16-0400 Diastolic blood pressure 86 mm[Hg] Dr. Navjot Mason Work Phone: [facility] 10-17-2022 11:16-0400 Heart rate 73 /min Dr. Navjot Mason Work Phone: 6(867)818-003135 [place] [address] 10-17-2022 11:16-0400 Respiratory rate 18 /min Dr. Navjot Mason Work Phone: [facility] 10-17-2022 11:16-0400 SaO2% (BldA) [Mass fraction] 95 % Dr. Navjot Mason Work Phone: [facility] 10-17-2022 11:16-0400 Systolic blood pressure 123 mm[Hg] Dr. Navjot Mason Work Phone: [facility] 09-19-2022 08:09-0400 Body height 181.[address] Navjot Mason Work Phone: [facility] 09-19-2022 07:54-0400 Body mass index (BMI) [Ratio] 34.4 kg/m2 Dr. Navjot Mason Work Phone: [facility] 09-19-2022 07:54-0400 Body temperature 97.6 [degF] Dr. Navjot Mason Work Phone: [facility] 09-19-2022 07:54-0400 Body weight 113.[address] Navjot Mason Work Phone: [facility] 09-19-2022 07:54-0400 Diastolic blood pressure 86 mm[Hg] Dr. Navjot Mason Work Phone: [facility] 09-19-2022 07:54-0400 Heart rate 84 /min Dr. Navjot Mason Work Phone: [facility] 09-19-2022 07:54-0400 Respiratory rate 18 /min Dr. Navjot Mason Work Phone: [facility] 09-19-2022 07:54-0400 SaO2% (BldA) [Mass fraction] 96 % Dr. Navjot Mason Work Phone: [facility] 09-19-2022 07:54-0400 Systolic blood pressure 130 mm[Hg] Dr. Navjot Mason Work Phone: [facility] 04-27-2022 10:44-0500 Body temperature 98.4 [degF] Chapincito Du APRN.LUBE WORKER Work Phone: [facility] 04-27-2022 10:44-0500 Body weight 115.03 kg Chapincito Du APRN.LUBE WORKER Work Phone: [facility] 04-27-2022 10:44-0500 Diastolic blood pressure 80 mm[Hg] Chapincito Du MAIL CARRIER.LUBE WORKER Work Phone: [facility] 04-27-2022 10:44-0500 Heart rate 92 /min Chapincito Du MAIL CARRIER.LUBE WORKER Work Phone: [facility] 04-27-2022 10:44-0500 Respiratory rate 16 /min Chapincito Du MAIL CARRIER.LUBE WORKER Work Phone: [facility] 04-27-2022 10:44-0500 SaO2% (BldA) [Mass fraction] 95 % Chapincito Du MAIL CARRIER.LUBE WORKER Work Phone: [facility] 04-27-2022 10:44-0500 Systolic blood pressure 124 mm[Hg] Chapincito Du MAIL CARRIER.LUBE WORKER Work Phone: [facility] Encounters Encounter Date Encounter Type Care Provider Facility Start: 10-07-2024 End: 10-07-2024 ambulatory Renan Mason Facility:[facility] Start: 04-08-2024 End: 04-08-2024 ambulatory Renan Mason Facility:[facility] Start: 03-20-2024 End: 03-20-2024 ambulatory Augusto FENTON Facility:[facility] Start: 02-27-2024 End: 02-29-2024 Telephone encounter Elvi Hudson APRN.LUBE WORKER Work Phone: Neurology Comment on above: Results; Patient Upd ate Start: 02-26-2024 End: 02-26-2024 Patient encounter procedure Elvi Hudson APRN.LUBE WORKER Work Phone: Neurology Comment on above: Central sleep apnea (Primary Dx) Start: 02-26-2024 End: 02-26-2024 ambulatory ELVI HUDSON Facility:[facility] Start: 11-07-2023 Telephone encounter Neurology Provid er Neurology Comment on above: Appointment Start: 11-03-2023 End: 11-03-2023 ambulatory Sunita Cat Facility:[facility] Start: 09-29-2023 End: 09-29-[address] Renan Mason Work Phone: [facility] Work Phone: Start: 09-29-2023 End: 09-29-[address] Renan Mason Work Phone: [facility] Start: 07-24-2023 End: 07-24-[address] Navjot Mason Work Phone: [facility] Work Phone: Start: 07-24-2023 End: 07-24-[address] Navjot Mason Work Phone: [facility] Work Phone: Start: 07-17-2023 End: 07-17-[address] Navjot Mason Work Phone: [facility] Work Phone: Start: 05-22-2023 End: 05-22-[address] Navjot Mason Work Phone: [facility] Work Phone: Start: 05-22-2023 End: 05-22-[address] Navjot Mason Work Phone: [facility] Work Phone: Start: 04-20-2023 End: 04-20-[address] Navjot Mason Work Phone: [facility] Work Phone: Start: 04-03-2023 End: 04-03-[address] Navjot Mason Work Phone: [facility] Work Phone: Start: 04-03-2023 End: 04-03-[address] Navjot Mason Work Phone: [facility] Start: 03-31-2023 End: 03-31-[address] Navjot Mason Work Phone: [facility] Work Phone: Start: 03-06-2023 Non-patient / Non-visit Dr. Mali Mason Work Phone: [facility] Start: 03-06-2023 End: 03-06-[address] Navjot Mason Work Phone: [facility] Work Phone: Start: 02-07-2023 End: 02-07-[address] Navjot Mason Work Phone: [facility] Work Phone: Start: 01-19-2023 End: 01-19-[address] Navjot Mason Work Phone: [facility] Work Phone: Start: 01-19-2023 End: 01-19-[address] Navjot Mason Work Phone: [facility] Work Phone: Start: 12-14-2022 End: 12-14-[address] Navjot Mason Work Phone: [facility] Work Phone: Start: 12-14-2022 End: 12-14-[address] Navjot Mason [facility] Start: 10-17-2022 End: 10-17-[address] Navjot Mason Work Phone: [facility] Work Phone: Start: 10-10-2022 End: 10-10-[address] Navjot Mason Work Phone: [facility] Work Phone: Start: 10-10-2022 End: 10-10-[address] Navjot Mason Work Phone: [facility] Start: 09-19-2022 End: 09-19-[address] Navjot Mason Work Phone: [facility] Start: 09-05-2022 Non-patient / Non-visit Dr. Mali Mason Work Phone: [facility] Start: 09-05-2022 End: 09-05-[address] Navjot Mason Work Phone: [facility] Work Phone: Start: 09-05-2022 End: 09-05-[address] Navjot Mason Work Phone: [facility] Start: 08-15-2022 End: 08-15-2022 ambulatory [facility] Work Phone: Start: 08-15-2022 End: 08-15-2022 Patient encounter procedure [facility] Start: 05-09-2022 End: 05-09-[address] Navjot Mason Work Phone: [facility] Work Phone: Start: 05-09-2022 End: 05-09-[address] Navjot Mason Work Phone: [facility] Start: 04-28-2022 Telephone encounter Kamila Lynne APRN.LUBE WORKER Work Phone: [facility] Comment on above: Results Start: 04-27-2022 End: 04-27-2022 Patient encounter procedure Chapincito Du APRN.LUBE WORKER Work Phone: [facility] Comment on above: URI, acute (Primary Dx) Start: 03-30-2022 End: 03-30-[address] Navjot Mason Work Phone: [facility] Start: 01-17-2022 End: 01-17-2022 Patient encounter procedure [facility] Plan of Treatment Date Care Activity Detail Author Start: 07-03-2033 Urine microalbumin profile DTaP,Tdap,Td Vaccine (3 - Td or Tdap) [facility] Start: 05-09-2027 Pneumococcal Vaccine : 65+ (3 of 3 - PPSV23 or PCV20) Pneumococcal Vaccine: 65+ (3 of 3 - PPSV23 or PCV20) [facility] Start: 07-17-2026 Screening for malign ant neoplasm of colon [facility] Start: 02-28-2025 End: 02-28-2025 Patient encounter procedure 02/28/2025 9:00 AM EDT Office Visit Neurology [address] [place] [address] Elvi Hudson, MAIL CARRIER.LUBE WORKER [address] [place] [address] 1 year follow up Neurology Comment on above: 1 year follow up Start: 02-26-2024 End: 02-26-2024 Patient encounter procedure 02/26/2024 9:00 AM EDT Office Visit Neurology [address] [place] [address] Elvi Hudson, MAIL CARRIER.LUBE WORKER [address] [place] [address] Referral [facility] [employer] Neurology Comment on above: Referral [facility] [employer]. Start: 02-11-2024 Covid-19 Vaccine ( season) Covid-19 Vaccine ( season) [facility] Start: 02-11-2024 Influenza vaccination [facility] Start: 11-28-2023 Advance Directive Discussion Advance Directive Discussion [facility] Start: 08-28-2023 Shingrix Vaccine (2 of 2) Villanueva grix Vaccine (2 of 2) [facility] Start: 06-12-2023 Behavioral Health Screening Behavioral Health Screening [facility] Start: 06-12-2023 Urine microalbumin profile DTaP,Tdap,Td Vaccine (2 - Td or Tdap) [facility] Start: 02-10-2023 Covid-19 Vaccine ( season) Covid-19 Vaccine () [facility] Start: 02-10-2022 Influenza vaccination INFLUENZA (#1) [facility] Start: 06-12-2021 DEPRESSION ASSESSMENT DEPRESSION ASS ESSMENT [facility] Start: 2018 RSV Vaccine (1 - 1-d ose 60+ series) RSV Vaccine (1 - 1-dose 60+ series) [facility] Start: 2013 PROSTATE CANCER SCRE ENING DISCUSSION PROSTATE CANCER SCREENING DISCUSSION [facility] Start: 2013 Prostate specific an tigen measurement Prostate Cancer Screening Discussion [facility] Start: 2008 SHINGRIX VACCINE (1 of 2) VILLANUEVA GRIX VACCINE (1 of 2) [facility] Start: 11-28-2003 COLOGUARD (FIT-DNA) COLOGUARD (FIT-D NA) [facility] Start: 11-28-2003 Colonoscopy COLONOSCOPY [facility] Start: 11-28-2003 COLORECTAL CANCER SCREENING COLORECTAL CANCER SCREENING [facility] Start: 11-28-[address] COLONOGRAPHY [facility] Start: 11-28-2003 DIABETES SCREEN DIABETES SCREEN [facility] Start: 11-28-2003 Diabetes Screening Diabetes Screenin g [facility] Start: 11-28-2003 FECAL OCCULT BLOOD FECAL OCCULT BLOO D [facility] Start: 11-28-2003 Screening for malign ant neoplasm of colon [facility] Start: 11-28-2003 SIGMOIDOSCOPY SIGMOIDOSCOPY [facility] Start: 1993 Lipid panel Lipid Screening [facility] Start: 1993 LIPID SCREEN LIPID SCREEN [facility] Start: 1977 Urine microalbumin profile DTAP,TDAP,TD (1 - Tdap) [facility] Start: 1976 Annual PCP Team Larry Operator vj Disease Visit Annual PCP Team Chronic Disease Visit [facility] Start: 1976 Anxiety Screening Anxiety Screening [facility] Start: 1976 BP Controlled (<130/80) BP Controlle d (<130/80) [facility] Start: 1976 Depression Screening Depression Scre ening [facility] Start: 1976 Hepatitis B surface antibody level LDL Cholesterol [facility] Start: 1976 HEPATITIS C SCREENING HEPATITIS C [facility] Start: 1976 Hepatitis C screening Hepatitis C [facility] Start: 1976 HIV SCREENING HIV SCREENING [facility] Start: 1976 HIV screening HIV Screening [facility] Start: 1968 Diabetic foot examination Diabetic F oot Exam [facility] Start: 1968 Glaucoma screening Dilated Retinal E xam [facility] Start: 1968 Hepatitis B screening Urine Albumin:Creatinine Ratio [facility] Start: 11-28-1963 Hemoglobin A1c measurement HbA1C [facility] Start: 1958 Abdominal aortic ane urysm screening Abdominal Aortic Aneurysm Screening [facility] Influenza virus A an d B RNA and SARS-CoV-2 (COVID-19) N gene panel - Respiratory specimen by REMA with probe detection COVID WITH FLUA+B, ROUTINE Microbiology Routine URI, acute 04/27/2022 11:21 AM EST [facility] Work Phone: [facility]om[facility] Immunizations Immunization Date Immunization Notes Care Provider Buffy viera 04-03-2023 influenza virus vacc ine, unspecified formulation Elvi Hudson MAIL CARRIER.LUBE WORKER Work Phone: [facility] 05-19-2021 influenza virus vacc ine, unspecified formulation Neurology Provider [facility] Payers Date Payer Category Payer Unknown [id number] 2023 Self-pay [id number] 2023 Private Health Insurance [id number] 2022 Private Health Insurance [facility] UMR CHOICE PLUS [id number] 2022-Present [phone] [address] [address] [place] [address] O [id number] 2022 Unknown [id number] Private Health Insurance [id number] Unknown [id number] Unknown [facility] PACKAGE [facility] [id number] Unknown [id number] Unknown [id number] Unknown [id number] Unknown [id number] Social History Date Type Detail Facility Start: 06-04-2021 End: 07-17-2023 Tobacco smoking status ALIS Unknown if ever smoked [facility] Start: 1960 Sex Assigned At Male [facility] Start: 06-10-2014 [facility] History of tobacco use Current smoker [facility] Start: 06-10-2014 Tobacco use and exposure User of smokeless tobacco [facility] History of tobacco use Snuff User [facility] Start: 04-27-2022 End: 02-26-2024 Alcohol intake Not Asked [facility] Start: 1960 Sex Assigned At Not on file [facility] Start: 04-17-2022 End: 04-27-2022 Exposure to SARS-CoV-2 (event) Not sure [facility] Work Phone: Start: 04-27-2022 End: 02-26-2024 History of Social function [facility] Start: 04-27-2022 End: 02-26-2024 Tobacco use panel [facility] National Score (1-100), lower number is lower risk Not on file [facility] Clinical Notes 04-27-2022 to 02-28-2024 Telephone Encounter - Elvi Hudson APRN.CNP - 02/28/2024 5:31 PM EDTTelephone Encounter - Elvi Hudson APRN.CNP - 02/28/2024 5:31 PM EDTThorElvi patel APRN.CNP - 02/26/2024 9:00 AM EDT Note Date & Type Note Facility 02-28-2024 Telephone encounter Note I spoke to pt, discussed looks like both obstructive>central. Continue with ASV. Elvi Hudson APRN.CNP [facility] 02-28-2024 Miscellaneous Notes I spoke to pt, discussed looks like both obstructive>central. Continue with ASV. Elvi Hudson APRN.CNP LM on VM that I was calling in follow up re his sleep apnea after I discussed his case with Dr Elliott, recommended he call [phone] ask for Sleep nurse. When is best time for me to call him? Elvi Hudson APRN.LUBE WORKER documented in this encounter [facility] 02-27-2024 Telephone encounter Note LM on VM that I was calling in follow up re his sleep apnea after I discussed his case with Dr Elliott, recommended he call [phone] ask for Sleep nurse. When is best time for me to call him? Elvi Hudson APRN.CNP [facility] 02-26-2024 History of Presen t illness Narrative Images from the original note were not included. 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 He does not have difficulty with memory [...] depending on your insurance coverage. Contact your Durable Medical Equipment (DME) company for new supplies as needed. - Follow up in 12 months with AD or sooner if needed Elvi Hudson APRN.RANDOLPH I spent a total of 48 minutes on the date of the service which included preparing to see the patient, [id number] patient care, completing clinical documentation, obtaining and/or reviewing separately obtained history, and counseling and educating the patient/family/caregiver. documented in this encounter [facility] 02-26-2024 Note HNO ID: [id number] Author: ELVI HUDSON APRN.CNP Service: ? Author Type: Nurse Practitioner Type: Progress Notes Filed: 02/26/2024 18:16 Note Text: [facility] New Patient Evaluation PATIENT NAME: Carla Olivarez DATE OF SERVICE: February 26, 2024 CONSULTING PROVIDER: No referring provider defined for this encounter. REASON FOR VISIT: CSA HPI: Carla Olivarez is a 63 year old male. Sleep-related history: CSA on ASV, referred by [facility] [employer]. 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 He does not have difficulty with memory [...] G47.31 Central s (more content not included)... [facility] 11-07-2023 Telephone encounter Note Phone call placed patient reported current DME [employer], new CPAP machine in 2023 current mask issues appointment scheduled with Júnior Hudson 02/26/2024. Tricia Arcos LPN [facility] 11-07-2023 Miscellaneous Notes Phone call placed patient reported current DME [employer], new CPAP machine in 2023 current mask issues appointment scheduled with Júnior Hudson 02/26/2024. Tricia Arcos LPN documented in this encounter [facility] 04-28-2022 Miscellaneous Notes Patient notified of results, verbalized understanding of instructions given. Yadira Meehan MA Negativefor COVID positive for flu a negative for flu B. Just symptom management with [id number] medications if symptoms worsen please follow-up with your primary care physician. documented in this encounter [facility] 04-27-2022 History of Presen t illness [...] Chapincito Du APRN.RANDOLPH documented in this encounter [facility] 04-27-2022 Instructions Chapincito Du APRN.CNP - [...] concerning to you. documented in this encounter [facility] Evaluation note No assessment inform ation available [facility] Work Phone: Evaluation note Diagnosis URI, acute- Primary Acute upper respiratory infections of unspecified site [facility] Diagnosis Onset Date Resolution Status Obstructive Sleep Apnea-Hypopnea Syndrome noneactive [facility] Work Phone: Evaluation note* Diagnosis Onset Date Resolution Status Obstructive Sleep Apnea-Hypopnea Syndrome noneactive BMI 34.0-34.9,adult acute CSA (central sleep apnea) ac [place] Primary snoring acute Hypertension [facility] Work Phone: Evaluation note* Diagnosis Onset Date Resolution Status BMI 34.0-34.9,adult acute CSA (central sleep apnea) ac [place] Primary snoring acute Hypertension [facility] Work Phone: Evaluation note* Diagnosis Onset Date Resolution Status CSA (central sleep apnea) ac cocop[place] Dyspnea acute Obesity chronic [facility] Work Phone: Evaluation note* Diagnosis Onset Date Resolution Status CSA (central sleep apnea) ch ronic Obesity chronic [facility] Work Phone: Evaluation note* Diagnosis DARINEL (obstructive sleep apnea)- Primary Obstructive sleep apnea (adult) (pediatric) [facility] Diagnosis Central sleep apnea- Primary Unspecified sleep apnea documented in this encounter [facility] Advance Directives No Advanced Directives Records Found Advance Directive Response Recorded Date/ Time Living Will No February 17 12:27pm Power of Plasticator No February 17, 2021 12:27pm Advance Directive Response Recorded Date/ Time Living Will No February 17, 2 021 11:27am Power of Plasticator No February 17, 2021 11:27am Advance Directive Response Recorded Date/ Time Living Will No March 31 9:09am Power of Plasticator No March 31, 2023 9:09am Advance Directive Response Recorded Date/ Time Living Will No March 31 8:09am Power of Plasticator No March 31, 2023 8:09am Chief Complaint and Reason for Visit Chief Complaint RANDOM DRUG SCREEN/G ILCREST Chief Complaint FATIGUE Fatigue Chief Complaint FATIGUE Fatigue Sleep apnea SNORING Reason for Visit Obstructive Sleep Ap alexey-Hypopnea Syndrome Chief Complaint FATIGUE Fatigue Sleep apnea SNORING 1 M FU Reason for Visit Obstructive Sleep Ap alexey-Hypopnea Syndrome BMI 34.0-34.9,adult CSA (central sleep apnea) Primary snoring Hypertension Chief Complaint SNORING 1 M FU ESSENTIAL HYPERTENSION Reason for Visit BMI 34.0-34.9,adult CSA (central sleep apnea) Primary snoring Hypertension Chief Complaint ESSENTIAL HYPERTENSI ON Discuss PSG DYSPNEA ANNUAL NON DOT DRUG AND BAT SCREEN/ GILCREST Reason for Visit CSA (central sleep a pnea) Dyspnea Obesity Chief Complaint Discuss PSG DYSPNEA ANNUAL NON DOT DRUG AND BAT SCREEN/ GILCREST Primary central sleep apnea CSA; ASV AC10 TAGGED Reason for Visit CSA (central sleep a pnea) Dyspnea Obesity Chief Complaint ANNUAL NON DOT DRUG AND BAT SCREEN/ GILCREST Primary central sleep apnea CSA; ASV AC10 TAGGED Pap compliance DARINEL Reason for Visit CSA (central sleep a pnea) Obesity Chief Complaint Pap compliance DARINEL Reason for Visit CSA (central sleep a pnea) Obesity Summary Purpose Family History No Family History Records Found Additional Source Comments Goals (unrecognized section and content) Goals may be documented in a n alternate sectionGoals may be documented in an alternate sectionGoals may be documented in an alternate sectionGoals may be documented in an alternate sectionGoals may be documented in an alternate sectionGoals may be documented in an alternate sectionGoals may be documented in an alternate sectionGoals may be documented in an alternate sectionGoals may be documented in an alternate sectionGoals may be documented in an alternate sectionGoals may be documented in an alternate section Source Comments (unrecognize d section and content) In the event this informatio n is protected by the Federal Confidentiality of Alcohol and Drug Abuse Patient Records regulations: The Federal rules restrict any use of the information to criminally investigate or prosecute any alcohol or drug abuse patient.[facility] the event this information is protected by the Federal Confidentiality of Alcohol and Drug Abuse Patient Records regulations: The Federal rules restrict any use of the information to criminally investigate or prosecute any alcohol or drug abuse patient.[facility] the event this information is protected by the Federal Confidentiality of Alcohol and Drug Abuse Patient Records regulations: The Federal rules restrict any use of the information to criminally investigate or prosecute any alcohol or drug abuse patient.[facility] the event this information is protected by the Federal Confidentiality of Alcohol and Drug Abuse Patient Records regulations: The Federal rules restrict any use of the information to criminally investigate or prosecute any alcohol or drug abuse patient.[facility] the event this information is protected by the Federal Confidentiality of Alcohol and Drug Abuse Patient Records regulations: The Federal rules restrict any use of the information to criminally investigate or prosecute any alcohol or drug abuse patient.[facility] Reason for Visit (unrecogniz ed section and content) Reason Comments Cough Cough, fever, FU, [place] dyaches and ST x 5 days Reason Comments Results Reason Comments Appointment Reason Comments New Patient Evaluation Reason Comments Results Patient Update Care Teams (unrecognized sec tion and content) Casting Room Helper Relationship Specialty Start Date End Date Renan Mason MD [address], [place] [id number] PCP - General Family Medicine 10/09/15 Casting Room Helper Relationship Specialty Start Date End Date Renan Mason MD [address] [place] [address] PCP - General Family Medicine 10/09/15 Team Status: Active Member Role Status Dates Dr. Navjot Mason MD Family Provider Active Dr. Navjot Mason MD Primary Care Provider Activ e Team Status: Inactive Member Role Status Dates Dr. Navjot Mason MD Primary Care Provider, Atte nding Provider Active Team Status: Active Member Role Status Dates Dr. Navjot Mason MD Primary Care Provider, Othe r Provider Active Dr. Mikey Larsen MD Attending Provider Active Team Status: Inactive Member Role Status Dates Dr. Navjot Mason MD Primary Care Provider, Refe rring Provider Active Dr. Devan Ordoñez MD Attending Provider Active Team Status: Inactive Member Role Status Dates Dr. Navjot Mason MD Primary Care Provider Activ e Dr. Devan Ordoñez MD Attending Provider, Referring Provider Active Team Status: Inactive Member Role Status Dates Dr. Navjot Mason MD Primary Care Provider, Refe rring Provider Active Sunita Cat [employer]ER, [employer]ER [employer] PRESSER-C Attending Provider Active Team Status: Active Member Role Status Dates Dr. Navjot Mason MD Primary Care Provider Activ e Dr. Alfa Wong MD Attending Provider Active Team Status: Inactive Member Role Status Dates Dr. Navjot Mason MD Primary Care Provider, Refe rring Provider Active Augusto Guadarrama PA, PA Attending Provider Active Team Status: Inactive Member Role Status Dates Dr. Navjot Mason MD Primary Care Provider Activ e Sunita Cat [employer], [employer] PRESSER-C Attending Provider, Referrin g Provider Active Team Status: Inactive Member Role Status Dates Dr. Navjot Mason MD Primary Care Provider Activ e Dr. Gabe Coon DO Attending Provider Active Team Status: Active Member Role Status Dates Dr. Renan Mason MD Family Provider Active Dr. Renan Mason MD Primary Care Provider Acti ve Team Status: Inactive Member Role Status Dates Dr. Renan Mason MD Primary Care Provider, Ref erring Provider Active Sunita Cat [employer], [employer] PRESSER-C Attending Provider Active Team Status: Inactive Member Role Status Dates Dr. Renan Mason MD Primary Care Provider Acti ve Sunita Cat [employer], [employer] PRESSER-C Attending Provider, Referrin g Provider Active Team Status: Inactive Member Role Status Dates Dr. Renan Mason MD Primary Care Provider, Att ending Provider Active Casting Room Helper Relationship Specialty Start Date End Date Renan Mason MD [address] [place], [place] [id number] PCP - General Family Medicine 10/09/15 Casting Room Helper Relationship Specialty Start Date End Date Renan Mason MD [address] [facility] [place] [address] PCP - General Family Medicine 10/09/15 Casting Room Helper Relationship Specialty Start Date End Date Renan Mason MD [address] [place] [address] PCP - General Family Medicine 10/09/15 (unrecognized sect ion and content) No Status Records FoundNo Status Records Found INFORMATION SOURCE (unrecogn ized section and content) DATE CREATED AUTHOR 03/02/2024 [facility] DATE CREATED AUTHOR AUTHOR'S SMITH PALACIOS 10/28/2024 [facility] FOR RECORDS PERTAINING TO PATIENTS WHO [...] BE BASED ON THE PRIMARY CLINICAL RECORDS. [employer] provides no warranty or guarantee of the accuracy or completeness of information in this document.
== END 2024-11-21 23:59 | disposition home or self-care (01) ==
PROVIDERS: PCP Family Medicine; Referring Provider Family Medicine; Visit Provider Family Medicine
DX: R79.89 Other specified abnormal findings of blood chemistry (principal)
CPT/HCPCS: 36415; 84403

== ENCOUNTER → 2025-01-06 | Outpatient (CLI) | payer MEDICARE, SELFPAY ==
[2025-01-06 10:58] LABS: Hematocrit 48.0 % (40-54); Hemoglobin 16.0 g/dL (13.0-16.5); Mean Corp Hgb Conc 33.3 g/dL (32-36); Mean Corpuscular Volume 85.1 fL (80-94); Mean Platelet Vol. 9.7 fl (6.2-12.0); Platelet Count 212 K/mm3 (150-450); RBC Distribution Width CV 13.5 % (11.6-14.6); RBC Distribution Width SD 42.3 fl (35.1-43.9); Red Blood Count 5.64 M/mm3 (4.6-6.2); White Blood Count 7.7 K/mm3 (4.4-11.0)
[2025-01-06 12:06] LABS: AST(SGOT) 24 U/L (<=37); Alanine Aminotransfer ALT/SGPT 29 U/L (<=46); Albumin, Serum 4.4 g/dL (3.4-4.8); Alkaline Phosphatase 80 U/L (40-129); Anion Gap 14 (5-15); BUN 18 mg/dL (4-19); BUN/Creat Ratio 17.3 RATIO (10-20); Calcium,Total 9.9 mg/dL (7.6-11.0); Carbon Dioxide 21.9 mmol/L (21.0-32.0); Chloride 103 mmol/L (98-108); Cholesterol 144 mg/dL (<=200); Globulin 2.7 g/dL (2.2-4.2); Glucose 139 mg/dL (70-99); Low Density Lipoprotein Calc. 28 mg/dL; PSA,Total- Diagnostic 1.20 ng/mL (0.00-4.00); Potassium 4.2 mmol/L (3.3-5.1); Triglycerides 436 mg/dL; Very Low Density Lipoprotein 87 mg/dL (5-40); cholesterol:hdl ratio screen 4.95
== END | disposition home or self-care (01) ==
LOC: MFPLAB 09:05
PROVIDERS: PCP Family Medicine; Referring Provider Family Medicine; Visit Provider Family Medicine
DX: E11.9 Type 2 diabetes mellitus without complications (principal); R79.89 Other specified abnormal findings of blood chemistry
CPT/HCPCS: 36415; 80053; 80061; 84153; 84443; 85027